=== PATIENT | male | born 1945 | race Caucasian/White ===

== ENCOUNTER 2017-03-14 13:10 | Inpatient (IN) | payer MEDICARE, BC ==
[~2017-03-14] VITALS: Ht 177.8 cm; Wt 112.5 kg
[2017-03-14 13:11] VITALS: O2SAT 96
[2017-03-14] MEDS ORDERED: ceFAZolin 2 GM PREMIX 50 ML ONE (13:13)
[2017-03-14 13:33] LABS: I-STAT POTASSIUM 3.7 MMOL/L (3.5-4.9)
--- NOTE | 2017-03-14 13:34 | RADRPT ---
EXAM DATE/TIME: 03/14/2017 13:23 [facility] COMPARISON: No previous studies available for comparison. INDICATIONS : Fall from ladder, trauma. RADIATION DOSE: 61.14 CTDIvol (mGy) MEDICAL HISTORY : None SURGICAL HISTORY : None. ENCOUNTER: Initial ACUITY: 1 day PAIN SCALE: 5/10 LOCATION: cranial TECHNIQUE: Multiple contiguous axial images were obtained of the head. Using automated exposure control and adj ustment of the mA and/or kV according to patient size, radiation dose was kept as low as reasonably a chievable to obtain optimal diagnostic quality images. DICOM format image data is available electro nically for review and comparison. FINDINGS: CEREBRUM: Questionable minimal hemorrhage in the frontal extra-axial space. The ventricles are normal for age. No evidence of midline shift, mass lesion, hemorrhage or acute infarction. No extra-axial fluid col lections are seen. POSTERIOR FOSSA: The cerebellum and brainstem are intact. The 4th ventricle is midline. The cerebellopontine angle i s unremarkable. EXTRACRANIAL: The visualized portion of the orbits is intact. Soft tissue laceration/contusion along the forehead g reater the left SKULL: The calvaria is intact. No evidence of skull fracture. CONCLUSION: 1. Questionable minimal hemorrhage in the frontal extra-axial space bilaterally. 2. No midline shift or mass effect. 3. Frontal soft tissue laceration/contusion greater the left. Orlando Kemp MD on March 14, 2017 at 13:30 Board Certified Radiologist. This report was verified electronically.
[2017-03-14 13:36] LABS: AUTOMATED NEUTROPHIL # 12.4 TH/MM3 (1.8-7.7); BASOPHIL % 0.3 % (0.0-2.0); EOSINOPHIL # 0.1 TH/MM3 (0-0.4); EOSINOPHIL % 0.7 % (0.0-4.0); HEMATOCRIT 42.3 % (39.0-51.0); HEMO FLAGS DIFF FINAL; LYMPH % 17.5 % (9.0-44.0); LYMPHOCYTE # 2.9 TH/MM3 (1.0-4.8); MEAN CELL VOLUME 85.7 FL (80.0-100.0); MEAN CORPUSCULAR HEMOGLOBIN 27.4 PG (27.0-34.0); MONO % 6.2 % (0.0-8.0); NEUT % 75.3 % (16.0-70.0); PLATELET COUNT 207 TH/MM3 (150-450); RED BLOOD COUNT 4.93 MIL/MM3 (4.50-5.90); RED CELL DISTRIBUTION WIDTH 15.3 % (11.6-17.2); WHITE BLOOD COUNT 16.4 TH/MM3 (4.0-11.0)
[2017-03-14] MEDS ORDERED: IOHEXOL 350 MG/ML 10 ML VIAL (for RAD DIAG) IVCONTRAST ONE (13:36)
[2017-03-14 13:45] LABS: APTT (PATIENT) 21.2 SEC (24.3-30.1)
[2017-03-14] MEDS ORDERED: MIDAZOLAM HCL 5 MG/ML VIAL (1 ML) ONE (13:48)
--- NOTE | 2017-03-14 13:56 | RADRPT ---
EXAM DATE/TIME: 03/14/2017 13:23 [facility] COMPARISON: No previous studies available for comparison. INDICATIONS : Fall from ladder, trauma. RADIATION DOSE: 25.06 CTDIvol (mGy) MEDICAL HISTORY : None SURGICAL HISTORY : None. ENCOUNTER: Initial ACUITY: 1 day PAIN SCALE: 5/10 LOCATION: neck TECHNIQUE: Volumetric scanning of the cervical spine was performed. Multiplanar reconstructions in the sagittal, coronal and oblique axial planes were performed. Using automated exposure control and adjustment o f the mA and/or kV according to patient size, radiation dose was kept as low as reasonably achievable to obtain optimal diagnostic quality images. DICOM format image data is available electronically f or review and comparison. FINDINGS: Vertebral body heights are maintained. Osseous structures are intact without evidence for acute bony fracture. Dens is intact. Sagittal alignment is maintained. There is a normal C1-2 relationship. Face ts are normally aligned. Multilevel degenerative spondylosis of the lower cervical spine with promine nt multilevel facet arthropathy. There is no significant prevertebral soft tissue hematoma. No signif icant cervical adenopathy or gross mass. The thyroid appears unremarkable. Visualized lung apices dem onstrate a right apical pneumothorax. CONCLUSION: 1. Partially imaged right apical pneumothorax. 2. No acute cervical fracture or subluxation. 3. Multilevel degenerative spondylosis of the lower cervical spine with prominent multilevel facet ar thropathy. Bj Briscoe MD on March 14, 2017 at 13:51 Board Certified Radiologist. This report was verified electronically.
--- NOTE | 2017-03-14 14:01 | RADRPT ---
EXAM DATE/TIME: 03/14/2017 13:23 [facility] COMPARISON: No previous studies available for comparison. INDICATIONS : Fall from ladder, trauma. RADIATION DOSE: 64.34 CTDIvol (mGy) MEDICAL HISTORY : None SURGICAL HISTORY : None. ENCOUNTER: Initial ACUITY: 1 day PAIN SCORE: 5/10 LOCATION: facial TECHNIQUE: Volumetric scanning of the facial bones was performed. Using automated exposure control and adjustme nt of the mA and/or kV according to patient size, radiation dose was kept as low as reasonably achiev able to obtain optimal diagnostic quality images. DICOM format image data is available electronicall y for review and comparison. FINDINGS: ORBITS: There is a small linear calcified density projecting along the lateral superior orbital rim whic h may reflect a small fracture fragment. The orbital and infraorbital osseous structures are oth erwise intact. The retroconal structures have a normal configuration. No radiopaque foreign roscoe dies are seen. NASAL BONE: The nasal bone and maxillary spine are intact ZYGOMATIC ARCHES: Symmetric without evidence of fracture. SINUSES: Mild mucoperiosteal thickening of the maxillary sinuses and anterior ethmoid air cells. Sphenoid sinus and frontal sinus are clear. Visualized mastoid air cells are clear. NASAL CAVITY: The nasal septum is intact and midline. The lacrimal ducts are intact. SOFT TISSUES: No radiopaque foreign bodies seen. Moderate left frontal periorbital soft tissue hematoma. INTRACRANIAL: No intracranial air seen. CRIBIFORM PLATE: Grossly intact. CONCLUSION: 1. Moderate sized left frontal periorbital scalp hematoma with small linear calcified density project ing along the lateral superior orbital rim which may reflect a small fracture fragment or possibly a small foreign body. 2. Otherwise, no evidence for facial bone fractures. 3. Mild mucosal disease involving the ethmoid and maxillary sinuses. Bj Briscoe MD on March 14, 2017 at 13:54 Board Certified Radiologist. This report was verified electronically.
[2017-03-14] MEDS ORDERED: LIDOCAINE HCL 1% PF 30 ML VIAL ONE (14:07)
--- NOTE | 2017-03-14 14:10 | RADRPT ---
EXAM DATE/TIME: 03/14/2017 13:30 [place] Corrected on: March 14, 2017; [facility] COMPARISON: No previous studies available for comparison. INDICATIONS : Fall from ladder, trauma. IV CONTRAST: 100 cc Omnipaque 350 (iohexol) IV ; Cumulative dose for multiple exams. RADIATION DOSE: 20.43 CTDIvol (mGy) ; Combined studies - Thorax/Abdomen/Pelvis MEDICAL HISTORY : None SURGICAL HISTORY : None. ENCOUNTER: Initial ACUITY: 1 day PAIN SCALE: 5/10 LOCATION: chest TECHNIQUE: Volumetric scanning of the chest was performed. Using automated exposure control and adjustment of t he mA and/or kV according to patient size, radiation dose was kept as low as reasonably achievable to obtain optimal diagnostic quality images. DICOM format image data is available electronically for review and comparison. Follow-up recommendations for detected pulmonary nodules are based at a minimum on nodule size and pa tient risk factors according to Fleischner Society Guidelines. FINDINGS: LUNGS: There is right anterior pneumothorax. Minimal right basilar consolidation likely atelectasis. There a re some patchy densities in the right lung. Left lung is clear PLEURA: Tiny right hemothorax. There is no pleural thickening or pleural effusion on the left. MEDIASTINUM: The heart and great vessels demonstrate no acute abnormality. There is no mediastinal or hilar lymph adenopathy. AXILLAE: Within normal limits. No lymphadenopathy. SKELETAL: Multiple right-sided rib fractures. MISCELLANEOUS: The visualized upper abdominal organs demonstrate right adrenal hemorrhage. CONCLUSION: 1. Large right-sided pneumothorax. 2. Consolidated changes throughout the right lung likely combination of contusion and atelectasis. 3. Multiple right-sided rib fractures. 4. Right adrenal hemorrhage. 5. Tiny right hemothorax. Orlando Kemp MD on March 14, 2017 at 13:57 Board Certified Radiologist. This report was verified electronically. Orlando Kemp MD on March 14, 2017 at 14:12 Board Certified Radiologist. This report was verified electronically.
--- NOTE | 2017-03-14 14:15 | RADRPT ---
EXAM DATE/TIME: 03/14/2017 13:30 [facility] COMPARISON: No previous studies available for comparison. INDICATIONS : Fall from ladder, trauma. IV CONTRAST: 100 cc Omnipaque 350 (iohexol) IV ; Cumulative dose for multiple exams. ORAL CONTRAST: No oral contrast ingested. RADIATION DOSE: 20.43 CTDIvol (mGy) ; Combined studies - Thorax/Abdomen/Pelvis MEDICAL HISTORY : None SURGICAL HISTORY : None. ENCOUNTER: Initial ACUITY: 1 day PAIN SCALE: 5/10 LOCATION: Abdomen TECHNIQUE: Volumetric scanning of the abdomen and pelvis was performed. Using automated exposure control and ad justment of the mA and/or kV according to patient size, radiation dose was kept as low as reasonably achievable to obtain optimal diagnostic quality images. DICOM format image data is available electro nically for review and comparison. FINDINGS: LOWER LUNGS: Right basilar pneumothorax and right small hemothorax. LIVER: Homogeneous density without lesion. There is no dilation of the biliary tree. No calcified gallston es. Minimal low attenuation along the liver adjacent to the insertion of the IVC. There is adjacent a drenal hemorrhage SPLEEN: Normal size without lesion. PANCREAS: Within normal limits. KIDNEYS: Normal in size and shape. There is no mass, stone or hydronephrosis. ADRENAL GLANDS: Right adrenal hemorrhage. Lacune or normal.. VASCULAR: There is no aortic aneurysm. BOWEL/MESENTERY: The stomach, small bowel, and colon demonstrate no acute abnormality. There is no free intraperitone al air or fluid. Diverticulosis of the colon. ABDOMINAL WALL: Within normal limits. RETROPERITONEUM: There is no lymphadenopathy. BLADDER: No wall thickening or mass. REPRODUCTIVE: Within normal limits. INGUINAL: There is no lymphadenopathy or hernia. MUSCULOSKELETAL: Multiple right-sided rib fractures. There is fracture of the right L4 transverse process and left L2 and L3 transverse processes. Left 12th rib fracture. Sclerotic focus right iliac bone CONCLUSION: 1. Right adrenal hemorrhage and some minimal adjacent hemorrhage along the undersurface of the liver. No extravasation. 2. Multiple right-sided rib fractures and pneumothorax. 3. Fractures of multiple right-sided ribs and left 12th rib. 4. Fractures of the left L2 and L3 transverse processes and L4 transverse process on the right. Orlando Kemp MD on March 14, 2017 at 14:09 Board Certified Radiologist. This report was verified electronically.
--- NOTE | 2017-03-14 14:20 | RADRPT ---
EXAM DATE/TIME: 03/14/2017 13:05 [facility] COMPARISON: CT ABDOMEN & PELVIS W CONTRAST, March 14, 2017, 13:30. INDICATIONS : Trauma alert. MEDICAL HISTORY : Unobtainble. SURGICAL HISTORY : Unobtainable. ENCOUNTER: Initial ACUITY: 1 day PAIN SCORE: Non-responsive. LOCATION: pelvis FINDINGS: Frontal pelvis is performed with patient on a backboard. The right iliac crest is excluded. The hips are grossly symmetric without definite fracture or dislocation. I see no definite displaced pelvic fr acture. CONCLUSION: No acute bony injury Eugenio Gaines MD on March 14, 2017 at 14:17 Board Certified Radiologist. This report was verified electronically.
--- NOTE | 2017-03-14 14:21 | RADRPT ---
EXAM DATE/TIME: 03/14/2017 13:05 [facility] COMPARISON: CT THORAX W CONTRAST, March 14, 2017, 13:30. CT THORACIC SPINE W/O CONTRAST, March 14, 2017, 13: 30. INDICATIONS : Trauma alert. MEDICAL HISTORY : Unobtainable. SURGICAL HISTORY : Unobtainable. ENCOUNTER: Initial ACUITY: 1 day PAIN SCORE: Non-responsive. LOCATION: Bilateral chest FINDINGS: There multiple mildly to moderately displaced right sided rib fractures. There is a right pneumothora x. Mild right lung contusion or atelectasis. Cardiomediastinal contours are satisfactory. CONCLUSION: Right rib fractures and right pneumothorax. Mild right lung contusion or atelectasis. Eugenio Gaines MD on March 14, 2017 at 14:19 Board Certified Radiologist. This report was verified electronically.
--- NOTE | 2017-03-14 14:27 | RADRPT ---
EXAM DATE/TIME: 03/14/2017 13:30 [facility] COMPARISON: No previous studies available for comparison. INDICATIONS : Fall from ladder, trauma. RADIATION DOSE: CTDIvol (mGy) ; Reconstructed from previous dataset, no dose MEDICAL HISTORY : None SURGICAL HISTORY : None. ENCOUNTER: Initial ACUITY: 1 day PAIN SCALE: 5/10 LOCATION: chest TECHNIQUE: Volumetric scanning of the thoracic spine was performed. Multiplanar reconstructions in the sagittal , coronal and oblique axial planes were performed. Using automated exposure control and adjustment o f the mA and/or kV according to patient size, radiation dose was kept as low as reasonably achievable to obtain optimal diagnostic quality images. DICOM format image data is available electronically f or review and comparison. FINDINGS: Redemonstration of multiple right sided rib fractures and posterior left 11th rib fracture. Thoracic vertebral body heights are intact without evidence for acute bony fracture or focal bony destruction. There are left sided L2 and L3 transverse process fractures. Bony central canal is patent. Facets ar e normally aligned. Sagittal alignment is maintained. Degenerative spondylosis of the lower thoracic spine with disc space narrowing and primarily osteophyte formation. Small right hemothorax and bilate ral, right greater than left ovary contusions with large right pneumothorax. CONCLUSION: 1. No evidence for thoracic spine fracture or subluxation. 2. Redemonstration of multiple right sided and left 11th posterior rib fractures. 3. Left-sided L2 and L3 transverse process fractures. 4. Small right hemothorax, large pneumothorax, and bilateral posterior pulmonary contusions. Bj Briscoe MD on March 14, 2017 at 14:19 Board Certified Radiologist. This report was verified electronically.
[2017-03-14] MEDS ORDERED: ONDANSETRON HCL 4 MG/2 ML VIAL IV PUSH PRN (14:30)
[2017-03-14] MEDS ORDERED: MISCELLANEOUS NURSING INFORMATION XX SCH (14:30)
[2017-03-14] MEDS ORDERED: CHLORHEXIDINE GLUCONATE 2 % 1 PACK (2 CLOTHS) TOP PRN (14:30)
--- NOTE | 2017-03-14 14:31 | RADRPT ---
EXAM DATE/TIME: 03/14/2017 13:30 [facility] COMPARISON: No previous studies available for comparison. INDICATIONS : Fall from ladder, trauma. RADIATION DOSE: ; Reconstructed from previous dataset, no dose MEDICAL HISTORY : None SURGICAL HISTORY : None. ENCOUNTER: Initial ACUITY: 1 day PAIN SCALE: 5/10 LOCATION: back TECHNIQUE: Volumetric scanning of the lumbar spine was performed. Multiplanar reconstructions in the sagittal, coronal and oblique axial planes were performed. Using automated exposure control and adjustment of the mA and/or kV according to patient size, radiation dose was kept as low as reasonably achievable t o obtain optimal diagnostic quality images. DICOM format image data is available electronically for review and comparison. FINDINGS: Left L2 and L3 transverse process fractures. Right L4 transverse process fracture. Vertebral body hei ghts are intact. Sagittal alignment is maintained. Facets are normally aligned. Degenerative spondylo sis of the lower lumbar spine most prominently at L4-5 with disc space narrowing, vacuum disc phenome non and posterior disc osteophytes. Bony central canal is patent. SI joints are maintained. Visualize d sacrum appears intact. Probable small bone island in the right iliac bone. Visualized paraspinal so ft tissues are grossly unremarkable. CONCLUSION: 1. Left L2 and L3 and right L4 transverse process fractures. 2. Otherwise, no significant lumbar vertebral fracture or subluxation. 3. Degenerative spondylosis of the lower lumbar spine. Bj Briscoe MD on March 14, 2017 at 14:26 Board Certified Radiologist. This report was verified electronically.
--- NOTE | 2017-03-14 14:41 | RADRPT ---
EXAM DATE/TIME: 03/14/2017 13:05 [facility] COMPARISON: CHEST SINGLE AP, March 14, 2017, 13:05. INDICATIONS : Post right side chest tube placement. MEDICAL HISTORY : None. SURGICAL HISTORY : None. ENCOUNTER: Initial ACUITY: 1 day PAIN SCORE: Non-responsive. LOCATION: Bilateral chest FINDINGS: Thoracostomy tube is present at the right lung base. There has been resolution of pneumothorax. Mild basilar lung contusions are present. Cardiac contours are stable and satisfactory. CONCLUSION: Thoracostomy tube in place with resolution of pneumothorax Eugenio Gaines MD on March 14, 2017 at 14:28 Board Certified Radiologist. This report was verified electronically.
--- NOTE | 2017-03-14 14:45 | PD ---
HPI Chief Complaint: Trauma (Alert) Time Seen by Provider: 14:24 Travel History International Travel<30 days: No Contact w/Intl Traveler<30days: No Traveled to known affect area: No History of Present Illness HPI This is a 71-year-old male who is brought in from [facility] as a trauma alert. The patient was climbing on a ladder and fell 8 feet to the ground. The patient states he was cutting a tree in the branch broke and fell and knocked his ladder down. The patient reports pain in his left upper face. Patient also reports pain in his right sided ribs. There is also pain in his lower middle back. There is no reported loss of consciousness. The patient takes no blood thinners. There is no abdominal pain. Allergies-Medications (Allergen,Severity, Reaction): Coded Allergies: No Known Allergies (Unverified , 03/14/17) Review of Systems Except as stated in HPI: all other systems reviewed are Neg Eyes: Positive: Other (laceration below the left eyebrow.), No: Blurred Vision HENT: Positive: Headaches (left sided), No: Neck Stiffness, Neck Pain ( upper forehead.) Cardiovascular: Positive: Chest Pain or Discomfort, No: Palpitations Respiratory: Positive: Shortness of Breath, No: Cough Gastrointestinal: No: Nausea, Vomiting, Abdominal Pain Genitourinary: No: Incontinence Musculoskeletal: Positive: Pain (mid thoracic back), No: Weakness ( right sided ribs), Edema Skin: Positive Other (abrasion to the right shoulder), No Rash Neurologic: No: Weakness, Headache, Incontinence, Sensory Disturbance Physical Exam Narrative GENERAL: Well-developed well-nourished male in C-spine backboard immobilization. SKIN: Focused skin assessment warm/dry. HEAD: 3 cm laceration to the left infra-eyebrow area. Normocephalic. EYES: Pupils equal and round. No scleral icterus. No injection or drainage. ENT: No nasal bleeding or discharge. Mucous membranes pink and moist. NECK: Trachea midline. In c-collar immobilization. CARDIOVASCULAR: Regular rate and rhythm. No murmur appreciated. RESPIRATORY: Decreased breath sounds on the right. There is a needle thoracostomy kit in his right upper chest. GASTROINTESTINAL: Abdomen soft, obese, non-tender, nondistended. Hepatic and splenic margins not palpable. Patient has pain in his right chest when you palpate his abdomen however no true abdominal pain. MUSCULOSKELETAL: No obvious deformities. No clubbing. No cyanosis. No edema. NEUROLOGICAL: Awake and alert. No obvious cranial nerve deficits. Motor grossly within normal limits. Normal speech. PSYCHIATRIC: Appropriate mood and affect; insight and judgment normal. Data Data Last Documented VS Vital Signs Date Time Temp Pulse Resp B/P (MAP) Pulse Ox O2 Delivery O2 Flow Rate FiO2 03/14/17 13:11 96 15.00 Orders Orders Cefazolin 2 Gm Premix (Ancef 2 Gm Premix (03/14/17 13:13) I-Stat Creatinine (03/14/17 13:13) Complete Blood Count With Diff (03/14/17 13:13) Type And Screen (03/14/17 13:13) Chest, Single Ap (03/14/17 ) I-Stat Profile (03/14/17 13:13) Prothrombin Time / Inr (Pt) (03/14/17 13:13) Act Partial Throm Time (Ptt) (03/14/17 13:13) Red Blood Cells (Rbc) (03/14/17 13:13) Pelvis, Ap Only (Routine) (03/14/17 13:13) Ct Brain W/O Iv Contrast(Rout) (03/14/17 13:13) Ct Cerv Spine W/O Contrast (03/14/17 13:13) Ct Abd/Pel W Iv Contrast(Rout) (03/14/17 13:13) Ct Thorax/ Chest W Iv Contrast (03/14/17 13:13) Ct Thor Spine W/O Contrast (03/14/17 13:13) Ct Lumb Spine W/O Contrast (03/14/17 13:13) Ct Facial Bones W/O Iv Cont (03/14/17 13:13) Iv Access Insert/Monitor (03/14/17 13:13) Ecg Monitoring (03/14/17 13:13) Oximetry (03/14/17 13:13) Oxygen Administration (03/14/17 13:13) Trauma Office Use Only (03/14/17 13:24) Iohexol 350 Inj (Omnipaque 350 Inj) (03/14/17 13:36) Midazolam Inj (Versed Inj) (03/14/17 13:48) Fentanyl Inj (Fentanyl Inj) (03/14/17 13:49) Fentanyl Inj (Fentanyl Inj) (03/14/17 13:55) Chest, Single Ap (03/14/17 ) Lidocaine Pf 1% Inj (Xylocaine-Mpf 1% In (03/14/17 14:07) Labs Laboratory Tests Test 03/14/17 13:15 White Blood Count 16.4 TH/MM3 Red Blood Count 4.93 MIL/MM3 Hemoglobin 13.5 GM/DL Bedside Hemoglobin 14.3 G/DL Hematocrit 42.3 % Bedside Hematocrit 42.0 % Mean Corpuscular Volume 85.7 FL Mean Corpuscular Hemoglobin 27.4 PG Mean Corpuscular Hemoglobin Concent 32.0 % Red Cell Distribution Width 15.3 % Platelet Count 207 TH/MM3 Mean Platelet Volume 8.3 FL Neutrophils (%) (Auto) 75.3 % Lymphocytes (%) (Auto) 17.5 % Monocytes (%) (Auto) 6.2 % Eosinophils (%) (Auto) 0.7 % Basophils (%) (Auto) 0.3 % Neutrophils # (Auto) 12.4 TH/MM3 Lymphocytes # (Auto) 2.9 TH/MM3 Monocytes # (Auto) 1.0 TH/MM3 Eosinophils # (Auto) 0.1 TH/MM3 Basophils # (Auto) 0.0 TH/MM3 CBC Comment DIFF FINAL Differential Comment Prothrombin Time 11.0 SEC Prothromb Time International Ratio 1.0 RATIO Activated Partial Thromboplast Time 21.2 SEC Bedside Sodium 142 MMOL/L Bedside Potassium 3.7 MMOL/L Bedside Chloride 106 MMOL/L Bedside Blood Urea Nitrogen 14 MG/DL Bedside Creatinine 1.3 MG/DL Bedside Glucose 133 MG/DL [facility] Medical Screen Exam Complete: Yes Emergency Medical Condition: Yes Interpretation(s) Last 24 hours Impressions Pelvis X-Ray 03/14/171312 Signed Impressions: Service Date/Time: Tuesday, March 14, 2017 13:05 - CONCLUSION: No acute bony injury Eugenio Gaines MD Maxillofacial CT 03/14/171312 Signed Impressions: Service Date/Time: Tuesday, March 14, 2017 13:23 - CONCLUSION: 1. Moderate sized left frontal periorbital scalp hematoma with small linear calcified density projecting along the lateral superior orbital rim which may reflect a small fracture fragment or possibly a small foreign body. 2. Otherwise, no evidence for facial bone fractures. 3. Mild mucosal disease involving the ethmoid and maxillary sinuses. Bj Briscoe MD Head CT 03/14/171312 Signed Impressions: Service Date/Time: Tuesday, March 14, 2017 13:23 - CONCLUSION: 1. Questionable minimal hemorrhage in the frontal extra-axial space bilaterally. 2. No midline shift or mass effect. 3. Frontal soft tissue laceration/contusion greater the left. Orlando Kemp MD Chest CT 03/14/171312 Signed Impressions: Service Date/Time: Tuesday, March 14, 2017 13:30 - CONCLUSION: 1. Large right-sided pneumothorax. 2. Consolidated changes throughout the right lung likely combination of contusion and atelectasis. 3. Multiple right-sided rib fractures. 4. Right adrenal hemorrhage. 5. Tiny right hemothorax. Orlando Kemp MD Cervical Spine CT 03/14/171312 Signed Impressions: Service Date/Time: Tuesday, March 14, 2017 13:23 - CONCLUSION: 1. Partially imaged right apical pneumothorax. 2. No acute cervical fracture or subluxation. 3. Multilevel degenerative spondylosis of the lower cervical spine with prominent multilevel facet arthropathy. Bj Briscoe MD Abdomen/Pelvis CT 03/14/171312 Signed Impressions: Service Date/Time: Tuesday, March 14, 2017 13:30 - CONCLUSION: 1. Right adrenal hemorrhage and some minimal adjacent hemorrhage along the undersurface of the liver. No extravasation. 2. Multiple right-sided rib fractures and pneumothorax. 3. Fractures of multiple right-sided ribs and left 12th rib. 4. Fractures of the left L2 and L3 transverse processes and L4 transverse process on the right. Orlando Kemp MD Chest X-Ray 03/14/17 0000 Signed Impressions: Service Date/Time: Tuesday, March 14, 2017 13:05 - CONCLUSION: Right rib fractures and right pneumothorax. Mild right lung contusion or atelectasis. Eugenio Gaines MD Differential Diagnosis Intracranial hemorrhage versus right sided pneumothorax versus right sided rib fractures versus spine fractures. Narrative Course 71-year-old male brought in as a trauma alert from [facility]. The patient was a level II trauma. Patient was worked up and found to have a large right sided pneumothorax with right sided rib fractures. Patient also has a questionable small intracranial hemorrhage. There is also some spinous process fractures noted as well. The patient will be admitted to the trauma service. Please note Dr. Etienne's, on-call trauma surgeon presented just prior to the placement of the chest tube. Dr. Etienne's assumed care of the patient and placed the chest tube. He will provide further care with the trauma service. Critical Care Narrative Aggregate critical care time was 60 minutes. Time to perform other separately billable procedures was not included in the critical care time. My time did not include minutes spent treating any other patients simultaneously or on activities that did not directly contribute to the patient's treatment. The services I provided to this patient were to treat and/or prevent clinically significant deterioration that could result in: I provided critical care services requiring my management, as noted below: Chart data review, documentation time, medication orders and management, vital sign assessments/reviewing monitor data, ordering and reviewing lab tests, ordering and interpreting/reviewing x-rays and diagnostic studies, care of the patient and discussion of the patient with the admitting physicians. Diagnosis Diagnosis: Primary Impression: large right pneumothorax. Additional Impressions: questionable intracranial hemorrhage left wall rib fracture right L4 transverse process process fracture Left L2, L3 transverse process fractures left inferior eyebrow laceration Adam Schroeder MD Mar 14, 2017 14:44
[2017-03-14] MEDS: SODIUM CHLOR 0.9% 1000 ML INJ 1,000 ML IV SCH (15:00)
[2017-03-14] MEDS: HYDROmorphone HCL PF 1 MG/ML VIAL IV PUSH PRN ×2 (15:47→23:44)
[2017-03-14 16:00] VITALS: BP 138/74; PULSE 97; RESP 16; TEMP 99; O2SAT 91; O2SAT 94
--- NOTE | 2017-03-14 16:00 | HHI.HP ---
History of Present Illness Primary Care Physician Admission Diagnosis right pneumothorax, L2,3,4 transverse process fractures, small ich Diagnoses: History of Present Illness 71 y.o male fell from a ladder as he was cutting trees-level 2 trauma ,CT scans ordered by the ER.Called by the ER for right ptx-at time of my exam,GCS 15- neuro intact,moving all 4 extremities,left forehead wound with active bleeding, HD normal-no blood thinners-c/o right thoracic pain. Review of Systems Constitutional: DENIES: Diaphoretic episodes, Fatigue, Fever, Weight gain, Weight loss, Chills, Dizziness, Change in appetite, Night Sweats Endocrine: DENIES: Heat/cold intolerance, Polydipsia, Polyuria, Polyphagia Eyes: DENIES: Blurred vision, Diplopia, Eye inflammation, Eye pain, Vision loss , Photosensitivity, Double Vision Ears, nose, mouth, throat: DENIES: Tinnitus, Hearing loss, Vertigo, Nasal discharge, Oral lesions, Throat pain, Hoarseness, Ear Pain, Running Nose, Epistaxis, Sinus Pain, Toothache, Odynophagia Respiratory: DENIES: Apneas, Cough, Snoring, Wheezing, Hemoptysis, Sputum production, Shortness of breath Cardiovascular: DENIES: Chest pain, Palpitations, Syncope, Dyspnea on Exertion , PND, Lower Extremity Edema, Orthopnea, Claudication Gastrointestinal: DENIES: Abdominal pain, Black stools, Bloody stools, Constipation, Diarrhea, Nausea, Vomiting, Difficulty Swallowing, Anorexia Genitourinary: DENIES: Sexual dysfunction, Urinary frequency, Urinary incontinence, Urgency, Hematuria, Dysuria, Nocturia, Penile Discharge, Testicular Pain, Testicular Swelling Musculoskeletal: DENIES: Joint pain, Muscle aches, Stiffness, Joint Swelling, Back pain, Neck pain Integumentary: DENIES: Abnormal pigmentation, Nail changes, Pruritus, Rash Hematologic/lymphatic: DENIES: Bruising, Lymphadenopathy Neurologic: DENIES: Abnormal gait, Headache, Localized weakness, Paresthesias, Seizures, Speech Problems, Tremor, Poor Balance Psychiatric: DENIES: Anxiety, Confusion, Mood changes, Depression, Hallucinations, Agitation, Suicidal Ideation, Homicidal Ideation, Delusions Past Family Social History Allergies: Coded Allergies: No Known Allergies (Unverified , 03/14/17) Past Medical History htn Past Surgical History none Reported Medications norvasc,losartan Family History none Social History no drugs Physical Exam Vital Signs Vital Signs Date Time Temp Pulse Resp B/P (MAP) Pulse Ox O2 Delivery O2 Flow Rate FiO2 03/14/17 13:11 96 15.00 Physical Exam GENERAL: This is a well-nourished, well-developed patient, in mild apparent distress. SKIN: No rashes, ecchymoses or lesions. Cool and dry. HEAD:Normocephalic.4cm open wound left supraorbital EYES: Pupils equal round and reactive. Extraocular motions intact. No scleral icterus. No injection or drainage. ENT: Nose without bleeding Airway patent. NECK: Trachea midline. No JVD or lymphadenopathy. Supple, nontender, CARDIOVASCULAR: Regular rate and rhythm without murmurs, gallops, or rubs. RESPIRATORY: Clear to auscultation.reduced BS right. No wheezes, rales, or rhonchi. GASTROINTESTINAL: Abdomen soft, non-tender, nondistended.. No guarding. MUSCULOSKELETAL: Extremities without clubbing, cyanosis, or edema. No joint tenderness, effusion, or edema noted. NEUROLOGICAL: Awake and alert. Cranial nerves II through XII intact. Motor and sensory grossly within normal limits. Five out of 5 muscle strength in all muscle groups. Normal speech. Laboratory Laboratory Tests Test 03/14/17 13:15 White Blood Count 16.4 Red Blood Count 4.93 Hemoglobin 13.5 Bedside Hemoglobin 14.3 Hematocrit 42.3 Bedside Hematocrit 42.0 Mean Corpuscular Volume 85.7 Mean Corpuscular Hemoglobin 27.4 Mean Corpuscular Hemoglobin Concent 32.0 Red Cell Distribution Width 15.3 Platelet Count 207 Mean Platelet Volume 8.3 Neutrophils (%) (Auto) 75.3 Lymphocytes (%) (Auto) 17.5 Monocytes (%) (Auto) 6.2 Eosinophils (%) (Auto) 0.7 Basophils (%) (Auto) 0.3 Neutrophils # (Auto) 12.4 Lymphocytes # (Auto) 2.9 Monocytes # (Auto) 1.0 Eosinophils # (Auto) 0.1 Basophils # (Auto) 0.0 CBC Comment DIFF FINAL Differential Comment Prothrombin Time 11.0 Prothromb Time International Ratio 1.0 Activated Partial Thromboplast Time 21.2 Bedside Sodium 142 Bedside Potassium 3.7 Bedside Chloride 106 Bedside Blood Urea Nitrogen 14 Bedside Creatinine 1.3 Bedside Glucose 133 Result Diagram: 10/6/17 1315 Imaging Last 48 hours Impressions Thoracic Spine CT 03/14/171312 Signed Impressions: Service Date/Time: Tuesday, March 14, 2017 13:30 - CONCLUSION: 1. No evidence for thoracic spine fracture or subluxation. 2. Redemonstration of multiple right sided and left 11th posterior rib fractures. 3. Left-sided L2 and L3 transverse process fractures. 4. Small right hemothorax, large pneumothorax, and bilateral posterior pulmonary contusions. Bj Briscoe MD Pelvis X-Ray 03/14/171312 Signed Impressions: Service Date/Time: Tuesday, March 14, 2017 13:05 - CONCLUSION: No acute bony injury Eugenio Gaines MD Maxillofacial CT 03/14/171312 Signed Impressions: Service Date/Time: Tuesday, March 14, 2017 13:23 - CONCLUSION: 1. Moderate sized left frontal periorbital scalp hematoma with small linear calcified density projecting along the lateral superior orbital rim which may reflect a small fracture fragment or possibly a small foreign body. 2. Otherwise, no evidence for facial bone fractures. 3. Mild mucosal disease involving the ethmoid and maxillary sinuses. Bj Briscoe MD Lumbar Spine CT 03/14/171312 Signed Impressions: Service Date/Time: Tuesday, March 14, 2017 13:30 - CONCLUSION: 1. Left L2 and L3 and right L4 transverse process fractures. 2. Otherwise, no significant lumbar vertebral fracture or subluxation. 3. Degenerative spondylosis of the lower lumbar spine. Bj Briscoe MD Head CT 03/14/171312 Signed Impressions: Service Date/Time: Tuesday, March 14, 2017 13:23 - CONCLUSION: 1. Questionable minimal hemorrhage in the frontal extra-axial space bilaterally. 2. No midline shift or mass effect. 3. Frontal soft tissue laceration/contusion greater the left. Orlando Kemp MD Chest CT 03/14/171312 Signed Impressions: Service Date/Time: Tuesday, March 14, 2017 13:30 - CONCLUSION: 1. Large right-sided pneumothorax. 2. Consolidated changes throughout the right lung likely combination of contusion and atelectasis. 3. Multiple right-sided rib fractures. 4. Right adrenal hemorrhage. 5. Tiny right hemothorax. Orlando Kemp MD Cervical Spine CT 03/14/17 1313 Signed Impressions: Service Date/Time: Tuesday, March 14, 2017 13:23 - CONCLUSION: 1. Partially imaged right apical pneumothorax. 2. No acute cervical fracture or subluxation. 3. Multilevel degenerative spondylosis of the lower cervical spine with prominent multilevel facet arthropathy. Bj Briscoe MD Abdomen/Pelvis CT 03/14/17 1313 Signed Impressions: Service Date/Time: Tuesday, March 14, 2017 13:30 - CONCLUSION: 1. Right adrenal hemorrhage and some minimal adjacent hemorrhage along the undersurface of the liver. No extravasation. 2. Multiple right-sided rib fractures and pneumothorax. 3. Fractures of multiple right-sided ribs and left 12th rib. 4. Fractures of the left L2 and L3 transverse processes and L4 transverse process on the right. Orlando Kemp MD Chest X-Ray 03/14/17 0000 Signed Impressions: Service Date/Time: Tuesday, March 14, 2017 13:05 - CONCLUSION: Thoracostomy tube in place with resolution of pneumothorax Eugenio Gaines MD Chest X-Ray 03/14/17 0000 Signed Impressions: Service Date/Time: Tuesday, March 14, 2017 13:05 - CONCLUSION: Right rib fractures and right pneumothorax. Mild right lung contusion or atelectasis. MD Clark Ibrahimi VTE Risk Assessment Caprini VTE Risk Assessment: Mod/High Risk (score >= 2) VTE Pharm Contraindication: Hemorrhage Caprini Risk Assessment Model Point Value = 1 Point Value = 2 Point Value = 3 Point Value = 5 Age 41-60 Minor surgery BMI > 25 kg/m2 Swollen legs Varicose veins or History of unexplained or recurrent spontaneous Oral contraceptives or hormone replacement Sepsis (< 1 month) Serious lung disease, including pneumonia (< 1 month) Abnormal pulmonary function Acute myocardial infarction Congestive heart failure (< 1 month) History of inflammatory bowel disease Medical patient at bed rest Age 61-74 Arthroscopic surgery Major open surgery (> 45 min) Laparoscopic surgery (> 45 min) Malignancy Confined to bed (> 72 hours) Immobilizing plaster cast Central venous access Age >= 75 History of VTE Family history of VTE Factor V Leiden Prothrombin [id number] Lupus anticoagulant Anticardiolipin antibodies Elevated serum homocysteine Heparin-induced thrombocytopenia Other congenital or acquired thrombophilia Stroke (< 1 month) Elective arthroplasty Hip, pelvis, or leg fracture Acute spinal cord injury (< 1 month) Prophylaxis Regimen Total Risk Factor Score Risk Level Prophylaxis Regimen 0-1 Low Early ambulation 2 Moderate Order ONE of the following: *Sequential Compression Device (SCD) *Heparin 5000 units SQ BID 3-4 Higher Order ONE of the following medications: *Heparin 5000 units SQ TID *Enoxaparin/Lovenox 40 mg SQ daily (WT < 150 kg, CrCl > 30 mL/min) *Enoxaparin/Lovenox 30 mg SQ daily (WT < 150 kg, CrCl > 10-29 mL/min) *Enoxaparin/Lovenox 30 mg SQ BID (WT < 150 kg, CrCl > 30 mL/min) AND/OR *Sequential Compression Device (SCD) 5 or more Highest Order ONE of the following medications: *Heparin 5000 units SQ TID (Preferred with Epidurals) *Enoxaparin/Lovenox 40 mg SQ daily (WT < 150 kg, CrCl > 30 mL/min) *Enoxaparin/Lovenox 30 mg SQ daily (WT < 150 kg, CrCl > 10-29 mL/min) *Enoxaparin/Lovenox 30 mg SQ BID (WT < 150 kg, CrCl > 30 mL/min) AND *Sequential Compression Device (SCD) Assessment and Plan Assessment and Plan multi trauma right 5 rib fx,left 0ne rib fx right PTX adrenal gland bleeding small SDH orbital fx open wound left forehead CT inserted in the trauma bay open wound closed admit to icu pain control pulmonary toilet CT to suction fu CXR in AM requires about 50 FIO2 to maintain spo2 in the 90 ies monitor respiratory status closely family updated NS consult Jennifer Cheney MD Mar 14, 2017 16:00
--- NOTE | 2017-03-14 16:19 | PD.CONS ---
HPI Service Critical Care Medicine Consult Requested By Trauma Service. Reason for Consult Blunt Chest Trauma, respiratory distress. Primary Care Physician History of Present Illness 71 y/o man fell about 10 feet to ground sustaining blunt trauma to head, face, and right torso. Arrived with SOB and required insertion right chest tube for pneumothorax. Multiple right rib fractures. No LOC. Review of Systems Constitutional: COMPLAINS OF: Dizziness Endocrine: DENIES: Heat/cold intolerance, Polydipsia, Polyuria, Polyphagia Ears, nose, mouth, throat: DENIES: Tinnitus, Hearing loss, Vertigo, Nasal discharge, Oral lesions, Throat pain, Hoarseness, Ear Pain, Running Nose, Epistaxis, Sinus Pain, Toothache, Odynophagia Respiratory: COMPLAINS OF: Cough, Shortness of breath Cardiovascular: COMPLAINS OF: Chest pain Gastrointestinal: DENIES: Abdominal pain, Black stools, Bloody stools, Constipation, Diarrhea, Nausea, Vomiting, Difficulty Swallowing, Anorexia Musculoskeletal: COMPLAINS OF: Back pain Integumentary: DENIES: Abnormal pigmentation, Nail changes, Pruritus, Rash Hematologic/lymphatic: COMPLAINS OF: Bruising Past Family Social History Allergies: Coded Allergies: No Known Allergies (Unverified , 03/14/17) Past Medical History Allergies-Medications (Allergen,Severity, Reaction): Coded Allergies: No Known Allergies (Unverified , 03/14/17) Physical Exam Vital Signs Vital Signs Date Time Temp Pulse Resp B/P (MAP) Pulse Ox O2 Delivery O2 Flow Rate FiO2 03/14/17 13:11 96 15.00 Physical Exam Gen: Uncomfortable man, severe pain. Head: Abrasions right forehead and temporal region. Laceration over left eye. Neck: Supple, no step-off. Airway widely patent. Lungs: Crepitus right chest wall. No wheezes, excursions limited by pain. Heart: NL S1S2, RRR, No JVD. Abdomen: Voluntary guarding only, no peritoneal irritation. Extremities: Well perfused. No angulation. Neuro: O X 3, alert, speech clear. M/S grossly intact. Laboratory Laboratory Tests Test 03/14/17 13:15 White Blood Count 16.4 Red Blood Count 4.93 Hemoglobin 13.5 Bedside Hemoglobin 14.3 Hematocrit 42.3 Bedside Hematocrit 42.0 Mean Corpuscular Volume 85.7 Mean Corpuscular Hemoglobin 27.4 Mean Corpuscular Hemoglobin Concent 32.0 Red Cell Distribution Width 15.3 Platelet Count 207 Mean Platelet Volume 8.3 Neutrophils (%) (Auto) 75.3 Lymphocytes (%) (Auto) 17.5 Monocytes (%) (Auto) 6.2 Eosinophils (%) (Auto) 0.7 Basophils (%) (Auto) 0.3 Neutrophils # (Auto) 12.4 Lymphocytes # (Auto) 2.9 Monocytes # (Auto) 1.0 Eosinophils # (Auto) 0.1 Basophils # (Auto) 0.0 CBC Comment DIFF FINAL Differential Comment Prothrombin Time 11.0 Prothromb Time International Ratio 1.0 Activated Partial Thromboplast Time 21.2 Bedside Sodium 142 Bedside Potassium 3.7 Bedside Chloride 106 Bedside Blood Urea Nitrogen 14 Bedside Creatinine 1.3 Bedside Glucose 133 Result Diagram: 03/14/17 1315 Assessment and Plan Assessment and Plan Assessment: 1. Fall from height with: a. Frontal lobe contusion, minor. b. Multiple right rib Fxs. c. Right pneumothorax. d. Transverse process fractures lumbar bodies. e. Adrenal bleed ans minor liver lac right side. Plan: 1. Chest tube right side to suction. 2. IV analgesia. 3. Swallow evaluation. 4. Pepcid. 5. SCDs. 6. Hold chemical DVT px. 7. Serial Hgb. 8. IS. Overall impression: Respiratory compromise following fall from height and significant right chest/abdomen trauma. Adam Bryant MD Mar 14, 2017 16:19
[2017-03-14] MEDS: CYCLOBENZAPRINE HCL 10 MG TAB PO SCH ×2 (17:45→20:41)
[2017-03-14] MEDS: LIDOCAINE HCL 5% PATCH T-DERMAL SCH (17:45)
[2017-03-14 18:00] VITALS: PULSE 94
[2017-03-14 20:00] VITALS: BP 141/78; PULSE 92; RESP 19; TEMP 99; O2SAT 94
--- NOTE | 2017-03-14 20:39 | PD.OP ---
Operative Report right ptx,open wound left forehead 4 cm Postoperative Diagnosis: right ptx,open wound left forehead 4cm Procedure: Right chest tube thoracostomy,closure in layers open wound left forehead in layers Anesthesia: 1% lidocaine,50 mcg fentanyl,2 mg versed Surgeon: Jennifer Cheney Reformatory Attendant(s): none Operation and Findings: Multi trauma,multiple rib fx right with large ptx,open wound left forehead 4cm Right chest sterilely prepped and draped.5th ICR tranverse incision placed.Dissection to superior margin of rib,pleura entered,[address] inserted, secured to skin with 1-0 silk.CXR shows good position.Left forehead wound 4cm- sterilely prepped and draped.Irrigation with NS performed.Closure in layers with 3-0 Vicryl and 4-0 prolene performed.Dressing applied. Jennifer Cheney MD Mar 14, 2017 20:39
[2017-03-14] MEDS: DOCUSATE SODIUM 50 MG/SENNA 8.6 MG TAB PO SCH (20:41)
[2017-03-14] MEDS: PANTOPRAZOLE SOD 40 MG DELAYED RELEASE TAB PO SCH (21:50)
[2017-03-14 22:00] VITALS: PULSE 96; O2SAT 95
--- NOTE | 2017-03-14 22:57 | PD.CONS ---
History of Present Illness Service Neurosurgery Consult Requested By General surgery trauma service Reason for Consult Traumatic brain injury, multiple spinous process fractures. Primary Care Physician Diagnoses: History of Present Illness 71 y.o male fell from a ladder as he was cutting trees-level 2 trauma ,CT scans ordered by the ER.Called by the ER for right ptx-at time of my exam,GCS 15- neuro intact,moving all 4 extremities,left forehead wound with active bleeding, HD normal-no blood thinners-c/o right thoracic pain. Review of Systems Constitutional: DENIES: Fatigue, Fever Eyes: DENIES: Blurred vision, Diplopia Ears, nose, mouth, throat: DENIES: Hearing loss, Vertigo, Nasal discharge Cardiovascular: DENIES: Chest pain, Palpitations Gastrointestinal: DENIES: Abdominal pain, Nausea Musculoskeletal: COMPLAINS OF: Joint pain, Muscle aches, Back pain, DENIES: Neck pain Hematologic/lymphatic: COMPLAINS OF: Bruising Neurologic: DENIES: Headache, Localized weakness Psychiatric: DENIES: Confusion Past Family Social History Allergies: Coded Allergies: No Known Allergies (Unverified , 03/14/17) Past Medical History Hypertension No history of significant cardiac, pulmonary, gastrointestinal disease or diabetes Past Surgical History No major surgeries reported Reported Medications Losartan Norvasc Family History Negative cancer, diabetes Social History No significant cigarette or alcohol use Physical Exam Vital Signs Vital Signs Date Time Temp Pulse Resp B/P (MAP) Pulse Ox O2 Delivery O2 Flow Rate FiO2 03/14/17 22:00 93 Blow By 40 03/14/17 20:00 94 Blow By 40 03/14/17 18:00 94 03/14/17 18:00 Blow By 40 03/14/17 16:17 15 03/14/17 16:00 91 Venturi Mask 40 03/14/17 16:00 94 High Flow Nasal Cannula 30.00 40 03/14/17 16:00 99.0 97 16 138/74 (95) 91 03/14/17 13:11 96 15.00 Physical Exam GENERAL: This is a well-nourished, well-developed patient, no apparent distress. SKIN: Scattered abrasions, ecchymosis over the extremities HEAD: Sutured left supraorbital laceration EYES: Mild left conjunctival erythema ENT: No facial edema or ecchymosis. Mild left periorbital ecchymosis. No CSF otorrhea or rhinorrhea. No palpable facial fracture or deformity. NECK: Trachea midline. No cervical spine tenderness. CARDIOVASCULAR: Regular rate and rhythm without murmurs, gallops, or rubs. RESPIRATORY: Clear to auscultation. Breath sounds equal bilaterally. No wheezes , rales, or rhonchi. GASTROINTESTINAL: Abdomen soft, non-tender, nondistended. No hepato-splenomegaly , or palpable masses. No guarding. MUSCULOSKELETAL: Extremities without cyanosis, or edema. No joint tenderness, or edema noted. No calf tenderness. Dorsalis pedis pulses 2+ bilateral NEUROLOGICAL: Awake and alert Oriented X 3 Speech is clear Conversant and appropriate Follow simple commands well Answers questions appropriately Reasonable judgment and insight Recent and remote memory are intact No evidence of anxiety or depression Pupils are equal and reactive to accommodation. Extra-ocular movements, visual mcclendon to confrontation, facial sensorimotor, tongue, palate, sternocleidomastoid testing, hearing to finger rub testing, and bilateral shoulder shrug are all intact. Sensation is intact to light touch in all extremities Strength normal major flexion and extension groups all extremities Donnie's absent bilaterally No ankle clonus Plantar responses absent bilateral Fine motor movements intact upper extremities Laboratory Laboratory Tests Test 03/14/17 13:15 03/14/17 16:00 White Blood Count 16.4 Red Blood Count 4.93 Hemoglobin 13.5 Bedside Hemoglobin 14.3 Hematocrit 42.3 Bedside Hematocrit 42.0 Mean Corpuscular Volume 85.7 Mean Corpuscular Hemoglobin 27.4 Mean Corpuscular Hemoglobin Concent 32.0 Red Cell Distribution Width 15.3 Platelet Count 207 Mean Platelet Volume 8.3 Neutrophils (%) (Auto) 75.3 Lymphocytes (%) (Auto) 17.5 Monocytes (%) (Auto) 6.2 Eosinophils (%) (Auto) 0.7 Basophils (%) (Auto) 0.3 Neutrophils # (Auto) 12.4 Lymphocytes # (Auto) 2.9 Monocytes # (Auto) 1.0 Eosinophils # (Auto) 0.1 Basophils # (Auto) 0.0 CBC Comment DIFF FINAL Differential Comment Prothrombin Time 11.0 Prothromb Time International Ratio 1.0 Activated Partial Thromboplast Time 21.2 Bedside Sodium 142 Bedside Potassium 3.7 Bedside Chloride 106 Bedside Blood Urea Nitrogen 14 Bedside Creatinine 1.3 Bedside Glucose 133 Nasal Screen MRSA (PCR) MRSA NOT DETECTED Result Diagram: 10/6/17 1315 Imaging 10/6/17 CT scan of the head, cervical spine, thoracic spine, lumbar spine images are reviewed by the undersigned. Agree with findings as noted below: Thoracic Spine CT 03/14/171312 Signed Impressions: Service Date/Time: Tuesday, March 14, 2017 13:30 - CONCLUSION: 1. No evidence for thoracic spine fracture or subluxation. 2. Redemonstration of multiple right sided and left 11th posterior rib fractures. 3. Left-sided L2 and L3 transverse process fractures. 4. Small right hemothorax, large pneumothorax, and bilateral posterior pulmonary contusions. Bj Briscoe MD Pelvis X-Ray 03/14/171312 Signed Impressions: Service Date/Time: Tuesday, March 14, 2017 13:05 - CONCLUSION: No acute bony injury Eugenio Gaines MD Maxillofacial CT 03/14/171312 Signed Impressions: Service Date/Time: Tuesday, March 14, 2017 13:23 - CONCLUSION: 1. Moderate sized left frontal periorbital scalp hematoma with small linear calcified density projecting along the lateral superior orbital rim which may reflect a small fracture fragment or possibly a small foreign body. 2. Otherwise, no evidence for facial bone fractures. 3. Mild mucosal disease involving the ethmoid and maxillary sinuses. Bj Briscoe MD Lumbar Spine CT 03/14/171312 Signed Impressions: Service Date/Time: Tuesday, March 14, 2017 13:30 - CONCLUSION: 1. Left L2 and L3 and right L4 transverse process fractures. 2. Otherwise, no significant lumbar vertebral fracture or subluxation. 3. Degenerative spondylosis of the lower lumbar spine. Bj Briscoe MD Head CT 03/14/171312 Signed Impressions: Service Date/Time: Tuesday, March 14, 2017 13:23 - CONCLUSION: 1. Questionable minimal hemorrhage in the frontal extra-axial space bilaterally. 2. No midline shift or mass effect. 3. Frontal soft tissue laceration/contusion greater the left. Orlando Kemp MD Chest CT 03/14/171312 Signed Impressions: Service Date/Time: Tuesday, March 14, 2017 13:30 - CONCLUSION: 1. Large right-sided pneumothorax. 2. Consolidated changes throughout the right lung likely combination of contusion and atelectasis. 3. Multiple right-sided rib fractures. 4. Right adrenal hemorrhage. 5. Tiny right hemothorax. Orlando Kemp MD Cervical Spine CT 03/14/171312 Signed Impressions: Service Date/Time: Tuesday, March 14, 2017 13:23 - CONCLUSION: 1. Partially imaged right apical pneumothorax. 2. No acute cervical fracture or subluxation. 3. Multilevel degenerative spondylosis of the lower cervical spine with prominent multilevel facet arthropathy. Bj Briscoe MD Abdomen/Pelvis CT 03/14/173 Signed Impressions: Service Date/Time: Tuesday, March 14, 2017 13:30 - CONCLUSION: 1. Right adrenal hemorrhage and some minimal adjacent hemorrhage along the undersurface of the liver. No extravasation. 2. Multiple right-sided rib fractures and pneumothorax. 3. Fractures of multiple right-sided ribs and left 12th rib. 4. Fractures of the left L2 and L3 transverse processes and L4 transverse process on the right. Orlando Kemp MD Chest X-Ray 03/14/17 0000 Signed Impressions: Service Date/Time: Tuesday, March 14, 2017 13:05 - CONCLUSION: Thoracostomy tube in place with resolution of pneumothorax Eugenio Gaines MD Assessment and Plan Assessment and Plan Impression: 1. 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 Left L2-L3, right L4 transverse process fractures 3. Cervical degenerative disc disease Plan: Findings were discussed with the patient in the intensive surgical care unit. Continue close neurologic checks and vital signs. Non-chemical DVT prophylaxis pending follow-up CT scan of the head on 03/15/17. May mobilize out of bed without brace as tolerated. Conservative management for transverse process fractures. Eddie Guillory MD Mar 14, 2017 22:57
[2017-03-15] VITALS (15 sets, daily range): BP systolic 140–151; BP diastolic 75–84; PULSE 80–98; RESP 14–22; TEMP 98.2–99.6; O2SAT 92–96
[2017-03-15] MEDS: SODIUM CHLOR 0.9% 1000 ML INJ 1,000 ML IV SCH ×3 (00:50→21:42)
[2017-03-15] MEDS: CHLORHEXIDINE GLUCONATE 2 % 1 PACK (2 CLOTHS) TOP SCH (03:21)
--- NOTE | 2017-03-15 04:34 | RADRPT ---
EXAM DATE/TIME: 03/15/2017 03:54 [facility] COMPARISON: CHEST SINGLE AP, March 14, 2017, 13:05. INDICATIONS : Evaluate for pnuemothorax- Post trauma MEDICAL HISTORY : None. SURGICAL HISTORY : None. ENCOUNTER: Subsequent ACUITY: 2 days PAIN SCORE: 7/10 LOCATION: Bilateral chest FINDINGS: A single portable frontal view of the chest shows a subpulmonic chest tube on the right. Tip is at th e midline. No pneumothorax. A small amount of subcutaneous air overlies the right chest. Low lung vol umes with minimal atelectasis within the bases. No infiltrates or effusions. Heart is normal in size. CONCLUSION: Right-sided chest tube without pneumothorax. Mild bibasilar atelectasis. Clayton Lucas Jr., MD on March 15, 2017 at 4:32 Board Certified Radiologist. This report was verified electronically.
[2017-03-15] MEDS: CYCLOBENZAPRINE HCL 10 MG TAB PO SCH ×3 (05:11→21:44)
[2017-03-15 05:22] LABS: AUTOMATED NEUTROPHIL # 10.1 TH/MM3 (1.8-7.7); BASOPHIL % 0.1 % (0.0-2.0); HEMATOCRIT 40.2 % (39.0-51.0); HEMO FLAGS DIFF FINAL; LYMPH % 7.8 % (9.0-44.0); LYMPHOCYTE # 0.9 TH/MM3 (1.0-4.8); MEAN CELL VOLUME 84.9 FL (80.0-100.0); MEAN CORPUSCULAR HEMOGLOBIN 27.4 PG (27.0-34.0); MEAN CORPUSCULAR HGB CONC 32.3 % (32.0-36.0); MONO % 8.6 % (0.0-8.0); NEUT % 83.5 % (16.0-70.0); PLATELET COUNT 200 TH/MM3 (150-450); RED BLOOD COUNT 4.74 MIL/MM3 (4.50-5.90); RED CELL DISTRIBUTION WIDTH 15.6 % (11.6-17.2); WHITE BLOOD COUNT 12.2 TH/MM3 (4.0-11.0)
[2017-03-15 05:40] LABS: BICARBONATE 23.6 MEQ/L (21.0-32.0); POTASSIUM 4.2 MEQ/L (3.5-5.1)
[2017-03-15] MEDS: DOCUSATE SODIUM 50 MG/SENNA 8.6 MG TAB PO SCH ×2 (08:08→19:50)
[2017-03-15] MEDS: LIDOCAINE HCL 5% PATCH T-DERMAL SCH ×2 (08:09→08:49)
[2017-03-15] MEDS: PANTOPRAZOLE SOD 40 MG DELAYED RELEASE TAB PO SCH (08:09)
--- NOTE | 2017-03-15 08:13 | HHI.CCPN ---
Subjective Remarks/Hospital Course 71 y/o man fell about 10 feet to ground sustaining blunt trauma to head, face, and right torso. Arrived with SOB and required insertion right chest tube for pneumothorax. Multiple right rib fractures. No LOC. 03/15: Hgb without change. Right lung well expanded. Neuro grossly intact. Objective Vital Signs Date Time Temp Pulse Resp B/P (MAP) Pulse Ox O2 Delivery O2 Flow Rate FiO2 03/15/17 06:00 95 Blow By 40 03/15/17 06:00 92 03/15/17 04:00 98.2 22 151/84 (106) 03/14/17 22:00 30.00 Intake and Output 03/15/17 03/15/17 03/16/17 08:00 16:00 00:00 Intake Total 1568 ml Output Total 715 ml Balance 853 ml Result Diagram: 03/15/1743903/15/17439 Objective Remarks Gen: Uncomfortable man, severe pain. Head: Dry abrasions right forehead and temporal region. Laceration over left eye , clean. Neck: Supple, no step-off. Airway widely patent. Lungs: Minimal crepitus right chest wall. No wheezes, excursions limited by pain. Heart: NL S1S2, RRR, No JVD. Abdomen: Voluntary guarding only, no peritoneal irritation. BS active. Extremities: Well perfused. No angulation. Warm. Neuro: O X 3, alert, speech clear. M/S grossly intact. A/P Assessment and Plan Assessment: 1. Fall from height with: a. Frontal lobe contusion, minor. b. Multiple right rib Fxs. c. Right pneumothorax. d. Transverse process fractures lumbar bodies. e. Adrenal bleed and minor liver lac right side. Plan: 1. Chest tube right side to suction. 2. IV analgesia. 3. Swallow evaluation. 4. Pepcid. 5. SCDs. 6. Hold chemical DVT px. 7. Serial Hgb. 8. IS. 9. Neuro checks. Overall impression: Respiratory compromise following fall from height and significant right chest/abdomen trauma. Improved today. Adam Bryant MD Mar 15, 2017 08:13
[2017-03-15] MEDS: HYDROmorphone HCL PF 1 MG/ML VIAL IV PUSH PRN ×4 (08:32→19:49)
--- NOTE | 2017-03-15 11:02 | MB ---
cc: YVANBASILIOERASTO DMD DATE OF CONSULTATION: 03/15/2017 REASON FOR CONSULTATION: Lateral orbital fracture. HISTORY OF PRESENT ILLNESS: This is a 71-year-old male who was cutting a tree / tree branch while standing on a ladder and he tells me that the tree branch fell and knocked the ladder down and he fell. Denies any loss of consciousness. He fell about 8-10 feet. I have seen and examined this patient this morning. He is alert, awake and oriented x3 in no acute distress. Denies any facial pain. Denies any blurry or double vision. Denies any neck pain. PHYSICAL EXAMINATION: VITAL SIGNS: Temperature is 98.2, pulse is 92, blood pressure 151/84, the oxygen saturation of 92, FIO2 of 40. PAST MEDICAL HISTORY: 1. Past medical history significant for hypertension. 2. Diabetes mellitus. ALLERGIES POLLEN PAST SURGICAL HISTORY: Reports Basal cell carcinoma from left cheek removed. Enterotomy. SOCIAL HISTORY: Denies any tobacco, or illicit drug use. Reports some history of occasional alcohol. MEDICATIONS 1. Losartan 2. Amlodipine. 3. Metformin. EXAMINATION HEAD, EYES, EARS, NOSE, AND THROAT: Pupils equal round react to light and accommodation. Extraocular movements are intact. Left periorbital ecchymosis that is noted. There is a laceration on the supraorbital rim that is closed, With sutures in it. Mild edema left periorbital region. Facial bones nasal bones all been palpated. No tenderness noted. No tenderness with movement of the face of the neck. Intra orally bite is stable no occlusion. No false or no false point of motion of the maxilla the mandible. No tenderness or crepitus on the facial bones. No active heme that is noted. CT scan of the facial bones. I do not appreciate any gross fractures at this point. But however, on the left supraorbital rim lateral aspect appears to be a small density that is noting there questionable for foreign object or a small little chip of bone that chipped off could be fascial fall but it is very small. No gross facial fractures noted otherwise. LABORATORY FINDINGS: White count is 12.2, H&H is 13.0 and 40.2 with a platelets of 200, PT/INR is 1.0 with a PTT of 21.2. IMPRESSION AND PLAN This is a 71-year-old male who fell while cutting a tree after the tree branch hit the latter, with a no gross facial fractures that are noted at this point of his face. However on the left supraorbital region question area of small clip of teeth or foreign object fragment, it is very small. Appears to be deep into the tissues. The site is stable. The wound has already been closed over on that side. At this point there is no surgical intervention from oral maxillofacial surgery standpoint. The patient is asymptomatic. We will reevaluate this the patient becomes symptomatic. However, the probability of that is minimal. The laceration of the left eye, orbital region was stable and closed with the ED. Any other abrasions over the forehead and other regions is stable at this point. No surgical intervention needed. He also has a frontal lobe contusion, rib fractures with a right pneumothorax, with a chest tube that is there. He also has transferred process fractures in the lumbar bodies, and multiple right rib fractures. Erasto Tiwari DMD RRT/matthew /9:19 AM /10:39 AM
--- NOTE | 2017-03-15 12:34 | RADRPT ---
EXAM DATE/TIME: 03/15/2017 12:16 [facility] COMPARISON: CT LUMBAR SPINE W/O CONTRAST, March 14, 2017, 13:30. INDICATIONS : Trauma, fall from ladder yesterday. RADIATION DOSE: 50.36 CTDIvol (mGy) MEDICAL HISTORY : Carcinoma, basal cell. Cardiovascular disease Hypertension. SURGICAL HISTORY : None. ENCOUNTER: Initial ACUITY: 1 day PAIN SCALE: Non-responsive LOCATION: Bilateral head TECHNIQUE: Multiple contiguous axial images were obtained of the head. Using automated exposure control and adj ustment of the mA and/or kV according to patient size, radiation dose was kept as low as reasonably a chievable to obtain optimal diagnostic quality images. DICOM format image data is available electro nically for review and comparison. FINDINGS: CEREBRUM: The ventricles are normal for age. No evidence of midline shift, mass lesion, hemorrhage or acute in farction. No extra-axial fluid collections are seen. POSTERIOR FOSSA: The cerebellum and brainstem are intact. The 4th ventricle is midline. The cerebellopontine angle i s unremarkable. EXTRACRANIAL: The visualized portion of the orbits is intact. SKULL: The calvaria is intact. No evidence of skull fracture. CONCLUSION: 1. No acute intracranial abnormality identified. Jey Silver MD on March 15, 2017 at 12:32 Board Certified Radiologist. This report was verified electronically.
--- NOTE | 2017-03-15 13:20 | HHI.CCPN ---
Subjective Brief History 71 y.o male fell from a ladder as he was cutting trees-level 2 trauma ,CT scans ordered by the ER.Called by the ER for right ptx-at time of my exam,GCS 15- neuro intact,moving all 4 extremities,left forehead wound with active bleeding, HD normal-no blood thinners-c/o right thoracic pain. 24 Hour Review/Hospital Course 03/15 CT head-negative in AM gcs 15 CXR stable -no PTX pain well controlled high flow 02-FIO2 40% hgb stable Objective Vital Signs Date Time Temp Pulse Resp B/P (MAP) Pulse Ox O2 Delivery O2 Flow Rate FiO2 03/15/17 09:53 93 High Flow Nasal Cannula 30.00 40 03/15/17 08:00 93 03/15/17 08:00 98.3 14 145/75 (98) Intake and Output 03/15/17 03/15/17 03/16/17 08:00 16:00 00:00 Intake Total 1568 ml Output Total 715 ml Balance 853 ml Result Diagram: 03/15/17 0440 03/15/17 0440 Imaging Last [address] 03/15/17 1200 Signed Impressions: Service Date/Time: Wednesday, March 15, 2017 12:16 - CONCLUSION: 1. No acute intracranial abnormality identified. Jey Silver MD Chest X-Ray 03/15/17 0600 Signed Impressions: Service Date/Time: Wednesday, March 15, 2017 03:54 - CONCLUSION: Right-sided chest tube without pneumothorax. Mild bibasilar atelectasis. Clayton Lucas Jr., MD Exam REGISTERED NURSE MIDWIFE GCS 15 Hemodynamic/Cardiac sTable Pulmonary/Respiratory High flow oxygen saturations 95 Abdomen/GI Nutrition Soft Urinary Catheter Assessment Urinary Catheter: Yes Vascular Central Line Catheter Vascular Central Line Catheter: No Assessment and Plan Plan Overall stable Continue high flow oxygen hold DVT prophylaxis for another 24 hours Out of bed, physical therapy CT to wall suction for another 24hr Jennifer Cheney MD Mar 15, 2017 13:20
[2017-03-15] MEDS ORDERED: AMLO10TA2 PO (17:33)
[2017-03-15] MEDS ORDERED: LOSA100T PO (17:33)
[2017-03-15] MEDS ORDERED: METF500T PO (17:33)
--- NOTE | 2017-03-15 17:36 | HHI.NSPN ---
History Chief Complaint: chest wall pain Interval History 71-year-old male fell off of a ladder while cutting down a tree, no loss of consciousness. Positive pneumothorax status post chest tube. Initial CT scan head with probable small bifrontal parafalcine subdural hematoma. CT scan of the spine with rather prominent cervical degenerative changes but no acute fracture. Positive left L2, L3, right L4 transverse process fractures Exam Results Vital Signs Date Time Temp Pulse Resp B/P (MAP) Pulse Ox O2 Delivery O2 Flow Rate FiO2 03/15/17 14:00 93 Blow By 40 03/15/17 14:00 93 03/15/17 12:00 99.5 15 144/78 (100) 03/15/17 09:53 30.00 Intake and Output 03/15/17 03/15/17 03/16/17 08:00 16:00 00:00 Intake Total 1568 ml Output Total 715 ml Balance 853 ml Physical Examination Respirations clear nonlabored Heart rate regular Abdomen soft Sutured laceration left supraorbital region No CSF otorrhea or rhinorrhea Mild left facial-periorbital ecchymosis Awake and alert Oriented X 3 Speech is clear Conversant and appropriate Follow simple commands well Answers questions appropriately Reasonable judgment and insight Recent and remote memory are intact No evidence of anxiety or depression Pupils are equal and reactive to accommodation. Extra-ocular movements, visual mcclendon to confrontation, facial sensorimotor, tongue, palate, sternocleidomastoid testing, hearing to finger rub testing, and bilateral shoulder shrug are all intact. Sensation is intact to light touch in all extremities Strength normal major flexion and extension groups all extremities Donnie's absent bilaterally No ankle clonus Plantar responses absent bilateral Fine motor movements intact upper extremities Lab, Micro, Other Results 03/15/17 follow-up CT scan head images reviewed by the undersigned. No definite evidence of intracranial hemorrhage, edema, contusion, mass effect, hydrocephalus, pneumocephalus, fracture. Head CT 03/15/17 1200 Signed Impressions: Service Date/Time: Wednesday, March 15, 2017 12:16 - CONCLUSION: 1. No acute intracranial abnormality identified. Jey Silver MD Chest X-Ray 03/15/17 0600 Signed Impressions: Service Date/Time: Wednesday, March 15, 2017 03:54 - CONCLUSION: Right-sided chest tube without pneumothorax. Mild bibasilar atelectasis. Clayton Lucas Jr., MD Medical Decision Making Impression and Plan Impression: 1. 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 2. Left L2-L3, right L4 transverse process fractures Plan: Findings were discussed with the patient and family. No neurosurgical intervention anticipated at this point. May begin Lovenox as indicated May mobilize out of bed without TLSO brace Eddie Guillory MD Mar 15, 2017 17:36
[2017-03-15] MEDS: MAGNESIUM HYDROXIDE SUSP 30 ML CUP PO SCH (19:50)
[2017-03-16] VITALS (15 sets, daily range): BP systolic 117–144; BP diastolic 66–75; PULSE 76–100; RESP 15–20; TEMP 98.5–99.9; O2SAT 91–98
[2017-03-16] MEDS: CHLORHEXIDINE GLUCONATE 2 % 1 PACK (2 CLOTHS) TOP SCH (03:33)
--- NOTE | 2017-03-16 05:53 | RADRPT ---
EXAM DATE/TIME: 03/16/2017 04:27 [facility] COMPARISON: CHEST SINGLE AP, March 15, 2017, 3:54. INDICATIONS : Trauma, right pneumothorax. MEDICAL HISTORY : Carcinoma, basal cell. Cardiovascular disease Hypertension SURGICAL HISTORY : None. ENCOUNTER: Subsequent ACUITY: 2 days PAIN SCORE: Non-responsive. LOCATION: Bilateral FINDINGS: A single portable frontal view of the chest shows a right thoracostomy tube. No pneumothorax. Lungs a re clear. No effusions. Heart is normal in size. CONCLUSION: Right thoracostomy tube without pneumothorax. Clayton Lucas Jr., MD on March 16, 2017 at 5:51 Board Certified Radiologist. This report was verified electronically.
[2017-03-16] MEDS: CYCLOBENZAPRINE HCL 10 MG TAB PO SCH ×3 (05:57→20:50)
[2017-03-16] MEDS: HYDROmorphone HCL PF 1 MG/ML VIAL IV PUSH PRN ×4 (06:00→20:55)
[2017-03-16 06:03] LABS: BLOOD GAS BASE EXCESS 1.6 mmol/L (-2-2); BLOOD GAS CARBOXYHEMOGLOBIN 1.4 % (0-4); BLOOD GAS HCO3 26 mmol/L (22-26); BLOOD GAS METHEMOGLOBIN 0.8 % (0-2); BLOOD GAS O2 HGB SATURATION 94 % (90-100); BLOOD GAS OXYGEN CONTENT 15.6 Vol % (12.0-20.0); BLOOD GAS PCO2 40 mmHg (38-42); BLOOD GAS PO2 77 mmHg (61-120); BLOOD GAS TOTAL HGB 11.9 G/DL (12.0-16.0); CRITICAL VALUE NO; TEMP CORR TO 98.6
[2017-03-16 06:04] LABS: DRAW SITE RT RADIAL; FIO2 50 %; LITER FLOW 30 L/M; NUMBER OF ARTERIAL PUNCTURES 2; OXYGEN DEVICE HFNC; STAT NO; ULNAR PULSE PRESENT
[2017-03-16] MEDS: LIDOCAINE HCL 5% PATCH T-DERMAL SCH ×2 (09:49→09:51)
[2017-03-16] MEDS: PANTOPRAZOLE SOD 40 MG DELAYED RELEASE TAB PO SCH (09:52)
[2017-03-16] MEDS: oxyCODONE/ACETAMINOPHEN 5 MG/325 MG TAB PO PRN (09:52)
[2017-03-16] MEDS: DOCUSATE SODIUM 50 MG/SENNA 8.6 MG TAB PO SCH ×2 (09:52→20:50)
[2017-03-16] MEDS: LACTULOSE SYRUP 20 GM/30 ML CUP PO SCH (09:53)
[2017-03-16 10:37] LABS: AUTOMATED NEUTROPHIL # 9.7 TH/MM3 (1.8-7.7); BASOPHIL % 0.2 % (0.0-2.0); EOSINOPHIL # 0.1 TH/MM3 (0-0.4); EOSINOPHIL % 1.1 % (0.0-4.0); HEMATOCRIT 38.1 % (39.0-51.0); HEMO FLAGS DIFF FINAL; LYMPH % 9.3 % (9.0-44.0); LYMPHOCYTE # 1.1 TH/MM3 (1.0-4.8); MEAN CELL VOLUME 84.6 FL (80.0-100.0); MEAN CORPUSCULAR HEMOGLOBIN 27.1 PG (27.0-34.0); MONO % 9.2 % (0.0-8.0); NEUT % 80.2 % (16.0-70.0); PLATELET COUNT 163 TH/MM3 (150-450); RED BLOOD COUNT 4.51 MIL/MM3 (4.50-5.90); RED CELL DISTRIBUTION WIDTH 15.1 % (11.6-17.2); WHITE BLOOD COUNT 12.1 TH/MM3 (4.0-11.0)
[2017-03-16 11:14] LABS: ANION GAP 5 MEQ/L (5-15); AST (GOT) 53 U/L (15-37); BICARBONATE 28.2 MEQ/L (21.0-32.0); BLOOD UREA NITROGEN 15 MG/DL (7-18); CHLORIDE 102 MEQ/L (98-107); GLOMERULAR FILTRATION RATE 78 ML/MIN (>89); SODIUM (NA) 135 MEQ/L (136-145)
[2017-03-16 11:15] LABS: ALT (GPT) 71 U/L (12-78)
[2017-03-16 11:17] LABS: ALKALINE PHOSPHATASE 79 U/L (45-117)
[2017-03-16] MEDS ORDERED: GLUCAGON 1 MG/ML VIAL OTHER PRN (11:30)
[2017-03-16] MEDS: LOSARTAN 50 MG TAB PO SCH (11:30)
[2017-03-16] MEDS ORDERED: DEXTROSE 50% IN WATER 50 ML SYRINGE IV PUSH PRN (11:30)
[2017-03-16] MEDS: INSULIN ASPART SUPPLEMENTAL SCALE SQ SCH ×2 (12:00→18:00)
[2017-03-16] MEDS: ENOXAPARIN SODIUM 30 MG/0.3 ML SYRINGE SQ SCH (12:47)
--- NOTE | 2017-03-16 13:15 | HHI.CCPN ---
Subjective Brief History 71 y.o male fell from a ladder as he was cutting trees-level 2 trauma ,CT scans ordered by the ER.Called by the ER for right ptx-at time of my exam,GCS 15- neuro intact,moving all 4 extremities,left forehead wound with active bleeding, HD normal-no blood thinners-c/o right thoracic pain. 24 Hour Review/Hospital Course 03/15 CT head-negative in AM gcs 15 CXR stable -no PTX pain well controlled high flow 02-FIO2 40% hgb stable 03/16 GCS 15, pain is well-controlled, FiO2 down to 50% on high flow oxygen ,lungs clear chest x-ray improved, hgb stable Objective Vital Signs Date Time Temp Pulse Resp B/P (MAP) Pulse Ox O2 Delivery O2 Flow Rate FiO2 03/16/17 06:00 95 Blow By 50 03/16/17 06:00 100 03/16/17 04:00 99.0 20 144/71 (95) 03/15/17 22:05 30.00 Intake and Output 03/16/17 03/16/17 03/16/17 07:59 15:59 23:59 Intake Total 950 ml Output Total 650 ml Balance 300 ml Result Diagram: 03/16/17 1006 03/16/17 1006 Other Results Laboratory Tests Test 03/16/17 05:45 Blood Gas Puncture Site RT RADIAL Blood Gas Patient Temperature 98.6 Blood Gas HCO3 26 mmol/L (22-26) Blood Gas Base Excess 1.6 mmol/L (-2-2) Blood Gas Oxygen Saturation 94 % (90-100) Arterial Blood pH 7.42 (7.380-7.420) Arterial Blood Partial Pressure CO2 40 mmHg (38-42) Arterial Blood Partial Pressure O2 77 mmHg (61-120) Arterial Blood Oxygen Content 15.6 Vol % (12.0-20.0) Arterial Blood Carboxyhemoglobin 1.4 % (0-4) Arterial Blood Methemoglobin 0.8 % (0-2) Blood Gas Hemoglobin 11.9 G/DL (12.0-16.0) Oxygen Delivery Device HFNC Blood Gas Liter Flow 30 L/M Blood Gas Inspired Oxygen 50 % Imaging Last 24 hours Impressions Chest X-Ray 03/16/17 0600 Signed Impressions: Service Date/Time: Thursday, March 16, 2017 04:27 - CONCLUSION: Right thoracostomy tube without pneumothorax. Clayton Lucas Jr., MD Exam PHARMACY SCHEDULER GCS 15 Hemodynamic/Cardiac stable Pulmonary/Respiratory high flow O2 Abdomen/GI Nutrition soft Assessment and Plan Plan Overall stable-continues to improve clinically Continue high flow oxygen-wean to nasal cannula last Start DVT prophylaxis f Out of bed, physical therapy CT to water seal Diet-regular Restart home Jennifer Treviño MD Mar 16, 2017 13:15
[2017-03-16] MEDS: oxyCODONE/ACETAMINOPHEN 10 MG/325 MG TAB PO PRN (15:17)
--- NOTE | 2017-03-16 16:59 | HHI.CCPN ---
Subjective Remarks/Hospital Course 71 y/o man fell about 10 feet to ground sustaining blunt trauma to head, face, and right torso. Arrived with SOB and required insertion right chest tube for pneumothorax. Multiple right rib fractures. No LOC. 03/15: Hgb without change. Right lung well expanded. Neuro grossly intact. 03/16: Neuro grossly normal. Right lung well expanded. Objective Vital Signs Date Time Temp Pulse Resp B/P (MAP) Pulse Ox O2 Delivery O2 Flow Rate FiO2 03/16/17 14:00 97 Blow By 40 03/16/17 14:00 84 03/16/17 12:00 98.9 15 131/71 (91) 03/15/17 22:05 30.00 Intake and Output 03/16/17 03/16/17 03/17/17 08:00 16:00 00:00 Intake Total 950 ml Output Total 650 ml Balance 300 ml Result Diagram: 03/16/17 1006 03/16/17 1006 Other Results Laboratory Tests Test 03/16/17 05:45 Blood Gas Puncture Site RT RADIAL Blood Gas Patient Temperature 98.6 Blood Gas HCO3 26 mmol/L (22-26) Blood Gas Base Excess 1.6 mmol/L (-2-2) Blood Gas Oxygen Saturation 94 % (90-100) Arterial Blood pH 7.42 (7.380-7.420) Arterial Blood Partial Pressure CO2 40 mmHg (38-42) Arterial Blood Partial Pressure O2 77 mmHg (61-120) Arterial Blood Oxygen Content 15.6 Vol % (12.0-20.0) Arterial Blood Carboxyhemoglobin 1.4 % (0-4) Arterial Blood Methemoglobin 0.8 % (0-2) Blood Gas Hemoglobin 11.9 G/DL (12.0-16.0) Oxygen Delivery Device HFNC Blood Gas Liter Flow 30 L/M Blood Gas Inspired Oxygen 50 % Objective Remarks Gen: Uncomfortable man, moderate pain. Head: Dry abrasions right forehead and temporal region. Laceration over left eye , clean. Neck: Supple, no step-off. Airway widely patent. Lungs: Minimal crepitus right chest wall. No wheezes, excursions limited by pain. Heart: NL S1S2, RRR, No JVD. Abdomen: Voluntary guarding only, no peritoneal irritation. BS active. Extremities: Well perfused. No angulation. Warm. Neuro: O X 3, alert, speech clear. M/S grossly intact. A/P Assessment and Plan Assessment: 1. Fall from height with: a. Frontal lobe contusion, minor. b. Multiple right rib Fxs. c. Right pneumothorax. d. Transverse process fractures lumbar bodies. e. Adrenal bleed and minor liver lac right side. Plan: 1. Chest tube right side to suction. 2. IV analgesia. 3. Swallow evaluation. 4. Pepcid. 5. SCDs. 6. Hold chemical DVT px. 7. Serial Hgb. 8. IS. 9. Neuro checks. Overall impression: Respiratory compromise following fall from height and significant right chest/abdomen trauma. Improved more. Followup head CT without injury. Adam Bryant MD Mar 16, 2017 16:59
--- NOTE | 2017-03-16 17:09 | HHI.NSPN ---
History Chief Complaint: chest wall pain Interval History 71-year-old male fell off of a ladder while cutting down a tree, no loss of consciousness. Positive pneumothorax status post chest tube. Initial CT scan head with probable small bifrontal parafalcine subdural hematoma. CT scan of the spine with rather prominent cervical degenerative changes but no acute fracture. Positive left L2, L3, right L4 transverse process fractures Exam Results Vital Signs Date Time Temp Pulse Resp B/P (MAP) Pulse Ox O2 Delivery O2 Flow Rate FiO2 03/16/17 14:00 97 Blow By 40 03/16/17 14:00 84 03/16/17 12:00 98.9 15 131/71 (91) 03/15/17 22:05 30.00 Intake and Output 03/16/17 03/16/17 03/17/17 08:00 16:00 00:00 Intake Total 950 ml Output Total 650 ml Balance 300 ml Physical Examination Respirations clear nonlabored Heart rate regular Abdomen soft Sutured laceration left supraorbital region No CSF otorrhea or rhinorrhea Mild left facial-periorbital ecchymosis Awake and alert Oriented X 3 Speech is clear Conversant and appropriate Follow simple commands well Answers questions appropriately Reasonable judgment and insight Recent and remote memory are intact No evidence of anxiety or depression Sitting up in a chair today Sensation is intact to light touch in all extremities Strength normal major flexion and extension groups all extremities Fine motor movements intact upper extremities Lab, Micro, Other Results Laboratory Tests Test 03/16/17 05:45 03/16/17 10:06 Blood Gas Puncture Site RT RADIAL Blood Gas Patient Temperature 98.6 Blood Gas HCO3 26 mmol/L Blood Gas Base Excess 1.6 mmol/L Blood Gas Oxygen Saturation 94 % Arterial Blood pH 7.42 Arterial Blood Partial Pressure CO2 40 mmHg Arterial Blood Partial Pressure O2 77 mmHg Arterial Blood Oxygen Content 15.6 Vol % Arterial Blood Carboxyhemoglobin 1.4 % Arterial Blood Methemoglobin 0.8 % Blood Gas Hemoglobin 11.9 G/DL Oxygen Delivery Device HFNC Blood Gas Liter Flow 30 L/M Blood Gas Inspired Oxygen 50 % White Blood Count 12.1 TH/MM3 Red Blood Count 4.51 MIL/MM3 Hemoglobin 12.2 GM/DL Hematocrit 38.1 % Mean Corpuscular Volume 84.6 FL Mean Corpuscular Hemoglobin 27.1 PG Mean Corpuscular Hemoglobin Concent 32.0 % Red Cell Distribution Width 15.1 % Platelet Count 163 TH/MM3 Mean Platelet Volume 8.0 FL Neutrophils (%) (Auto) 80.2 % Lymphocytes (%) (Auto) 9.3 % Monocytes (%) (Auto) 9.2 % Eosinophils (%) (Auto) 1.1 % Basophils (%) (Auto) 0.2 % Neutrophils # (Auto) 9.7 TH/MM3 Lymphocytes # (Auto) 1.1 TH/MM3 Monocytes # (Auto) 1.1 TH/MM3 Eosinophils # (Auto) 0.1 TH/MM3 Basophils # (Auto) 0.0 TH/MM3 CBC Comment DIFF FINAL Differential Comment Blood Urea Nitrogen 15 MG/DL Creatinine 0.95 MG/DL Random Glucose 127 MG/DL Total Protein 6.6 GM/DL Albumin 3.1 GM/DL Calcium Level 8.5 MG/DL Alkaline Phosphatase 79 U/L Aspartate Amino Transf (AST/SGOT) 53 U/L Alanine Aminotransferase (ALT/SGPT) 71 U/L Total Bilirubin 1.0 MG/DL Sodium Level 135 MEQ/L Potassium Level 4.0 MEQ/L Chloride Level 102 MEQ/L Carbon Dioxide Level 28.2 MEQ/L Anion Gap 5 MEQ/L Estimat Glomerular Filtration Rate 78 ML/MIN Medical Decision Making Impression and Plan Impression: 1. 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 2. Left L2-L3, right L4 transverse process fractures Plan: Stable for transfer to regular floor from neurosurgery standpoint. No neurosurgical intervention anticipated at this point. May begin Lovenox as indicated May mobilize out of bed without TLSO brace Sodium 135. Monitor. Eddie Guillory MD Mar 16, 2017 17:09
[2017-03-16] MEDS: MAGNESIUM HYDROXIDE SUSP 30 ML CUP PO SCH (20:50)
[2017-03-17] VITALS (12 sets, daily range): BP systolic 110–137; BP diastolic 61–81; PULSE 80–92; RESP 12–19; TEMP 98.3–98.8; O2SAT 92–97
[2017-03-17] MEDS: ENOXAPARIN SODIUM 30 MG/0.3 ML SYRINGE SQ SCH ×2 (00:21→16:06)
[2017-03-17] MEDS: HYDROmorphone HCL PF 1 MG/ML VIAL IV PUSH PRN ×3 (00:33→16:07)
[2017-03-17] MEDS: oxyCODONE/ACETAMINOPHEN 10 MG/325 MG TAB PO PRN ×4 (03:38→22:19)
[2017-03-17] MEDS: CHLORHEXIDINE GLUCONATE 2 % 1 PACK (2 CLOTHS) TOP SCH (04:00)
[2017-03-17] MEDS: SODIUM CHLOR 0.9% 1000 ML INJ 1,000 ML IV SCH (04:13)
[2017-03-17] MEDS: CYCLOBENZAPRINE HCL 10 MG TAB PO SCH ×3 (04:27→22:19)
[2017-03-17] MEDS: INSULIN ASPART SUPPLEMENTAL SCALE SQ SCH ×4 (05:14→18:00)
--- NOTE | 2017-03-17 05:42 | RADRPT ---
EXAM DATE/TIME: 03/17/2017 04:13 [facility] COMPARISON: CHEST SINGLE AP, March 16, 2017, 4:27. INDICATIONS : Evaluate for pnuemothorax post trauma- MEDICAL HISTORY : Carcinoma, basal cell. Cardiovascular disease. Hypertension. SURGICAL HISTORY : None. ENCOUNTER: Subsequent ACUITY: 3 days PAIN SCORE: Non-responsive. LOCATION: Bilateral chest FINDINGS: Right base thoracostomy tube remains in place. No evidence of pneumothorax. There is mild bibasilar c ontusion or atelectasis. Accounting for rotation, the cardiac contours are grossly stable. CONCLUSION: Slight interval worsening in aeration. No pneumothorax Eugenio Gaines MD on March 17, 2017 at 5:40 Board Certified Radiologist. This report was verified electronically.
[2017-03-17 06:17] LABS: BASOPHIL % 0.3 % (0.0-2.0); EOSINOPHIL # 0.2 TH/MM3 (0-0.4); HEMATOCRIT 34.9 % (39.0-51.0); HEMO FLAGS DIFF FINAL; LYMPH % 11.8 % (9.0-44.0); LYMPHOCYTE # 1.2 TH/MM3 (1.0-4.8); MEAN CELL VOLUME 84.9 FL (80.0-100.0); MEAN CORPUSCULAR HEMOGLOBIN 27.9 PG (27.0-34.0); MEAN CORPUSCULAR HGB CONC 32.9 % (32.0-36.0); MONO % 10.5 % (0.0-8.0); NEUT % 75.4 % (16.0-70.0); PLATELET COUNT 155 TH/MM3 (150-450); WHITE BLOOD COUNT 10.6 TH/MM3 (4.0-11.0)
[2017-03-17 06:43] LABS: ANION GAP 7 MEQ/L (5-15); AST (GOT) 33 U/L (15-37); BICARBONATE 27.2 MEQ/L (21.0-32.0); BLOOD UREA NITROGEN 21 MG/DL (7-18); CHLORIDE 99 MEQ/L (98-107); GLOMERULAR FILTRATION RATE 70 ML/MIN (>89); POTASSIUM 4.1 MEQ/L (3.5-5.1); SODIUM (NA) 133 MEQ/L (136-145)
[2017-03-17 06:47] LABS: ALKALINE PHOSPHATASE 72 U/L (45-117); ALT (GPT) 48 U/L (12-78); TOTAL BILIRUBIN ADULT 0.7 MG/DL (0.2-1.0)
[2017-03-17] MEDS: LOSARTAN 50 MG TAB PO SCH (08:21)
[2017-03-17] MEDS: PANTOPRAZOLE SOD 40 MG DELAYED RELEASE TAB PO SCH (08:30)
[2017-03-17] MEDS: DOCUSATE SODIUM 50 MG/SENNA 8.6 MG TAB PO SCH ×2 (08:30→22:19)
[2017-03-17] MEDS: LIDOCAINE HCL 5% PATCH T-DERMAL SCH ×2 (08:31)
[2017-03-17] MEDS: LACTULOSE SYRUP 20 GM/30 ML CUP PO SCH (08:31)
--- NOTE | 2017-03-17 10:03 | HHI.NSPN ---
(Dada Roland) History Chief Complaint: Right-sided chest wall pain (Dada Roland) Interval History 71-year-old male fell off of a ladder while cutting down a tree, no loss of consciousness. Positive pneumothorax status post chest tube. Initial CT scan head with probable small bifrontal parafalcine subdural hematoma. CT scan of the spine with rather prominent cervical degenerative changes but no acute fracture. Positive left L2, L3, right L4 transverse process fractures 03/17: The patient is asleep but awakens to voice. After that he is awake and readily interacts. He states that it is "a mixed bag" when asked how he feels today. He reports that his pain is better today and that he has pain to the right anterolateral chest wall/ribs. He states he really doesn't have pain to the back. He does have some abdominal pain secondary to not having a bowel movement. He does endorse shortness of breath do to the rib fractures. (Dada Roland) System Review Comments Constitutional: Patient denies any fever or chills. HEENT: Patient denies any visual or hearing difficulty. Respiratory: Patient does have shortness of breath secondary to rib fractures. He denies any wheezing or productive cough. Cardiovascular: Patient with right-sided chest wall/rib pain. He denies any other chest pain, palpitations or irregular heartbeat. Gastrointestinal: Patient has some diffuse abdominal pain due to not having a bowel movement yet. He denies any nausea, vomiting or incontinence of stool. Genitourinary: Patient denies any incontinence of urine. Musculoskeletal: Patient complains of right-sided chest wall/rib pain. He denies any pain to the neck, back or extremities. Neurologic: Patient does have a headache to the frontal region. He denies any dizziness, numbness, tingling or weakness. (Dada Roland) Exam Results 03/15/17 03/15/17 03/16/17 03/16/17 03/17/17 03/17/17 06:00 18:00 06:00 18:00 06:00 18:00 Intake Total 1568 ml 1841 ml 950 ml 1206 ml 600 ml Output Total 715 ml 730 ml 650 ml 575 ml 430 ml Balance 853 ml 1111 ml 300 ml 631 ml 170 ml Intake Oral 720 ml 960 ml 600 ml 720 ml 400 ml IV Total 848 ml 881 ml 350 ml 486 ml 200 ml Output Urine Total 625 ml 600 ml 550 ml 500 ml 400 ml Chest Tube Drainage Total 90 ml 130 ml 100 ml 75 ml 30 ml # Bowel Movements 0 0 0 0 0 Vital Signs Date Time Temp Pulse Resp B/P (MAP) Pulse Ox O2 Delivery O2 Flow Rate FiO2 03/17/17 07:04 12 03/17/17 06:00 Blow By 30.00 55 03/17/17 05:11 12 03/17/17 04:00 98.3 80 15 126/70 (88) 94 03/17/17 04:00 Blow By 30.00 55 03/17/17 02:00 Blow By 30.00 55 03/17/17 00:00 98.8 81 12 133/72 (92) 93 03/17/17 00:00 Blow By 30.00 55 03/16/17 22:00 Blow By 30.00 55 03/16/17 21:36 98 High Flow Nasal Cannula 30.00 55 03/16/17 20:00 Blow By 40 03/16/17 20:00 98.7 84 15 136/75 (95) 93 03/16/17 18:00 95 Blow By 40 03/16/17 18:00 88 03/16/17 17:08 94 High Flow Nasal Cannula 30.00 40 03/16/17 16:00 96 Blow By 40 03/16/17 16:00 99.9 90 17 127/72 (90) 96 03/16/17 16:00 90 03/16/17 14:00 97 Blow By 40 03/16/17 14:00 84 03/16/17 13:02 97 High Flow Nasal Cannula 30.00 50 03/16/17 12:00 94 03/16/17 12:00 94 Blow By 40 03/16/17 12:00 98.9 94 15 131/71 (91) 94 03/16/17 10:00 98 03/16/17 10:00 95 Blow By 40 03/16/17 08:00 95 Blow By 40 03/16/17 08:00 77 03/16/17 08:00 98.6 77 17 117/66 (83) 93 03/16/17 07:30 96 High Flow Nasal Cannula 30.00 70 03/16/17 06:00 95 Blow By 50 03/16/17 06:00 100 03/16/17 04:00 95 Blow By 50 03/16/17 04:00 99.0 87 20 144/71 (95) 95 03/16/17 04:00 87 03/16/17 03:00 95 Blow By 50 03/16/17 02:00 91 Blow By 60 03/16/17 02:00 82 03/16/17 00:00 91 Blow By 70 03/16/17 00:00 98.5 76 19 130/67 (88) 91 03/16/17 00:00 76 03/15/17 22:10 92 Blow By 70 03/15/17 22:05 94 High Flow Nasal Cannula 30.00 70 03/15/17 22:00 92 Blow By 50 03/15/17 22:00 80 03/15/17 21:40 92 Blow By 50 03/15/17 20:35 94 High Flow Nasal Cannula 30.00 40 03/15/17 20:00 99.2 86 19 142/78 (99) 94 03/15/17 20:00 86 03/15/17 20:00 93 Blow By 40 03/15/17 18:00 93 Blow By 40 03/15/17 18:00 81 03/15/17 16:00 93 Blow By 40 03/15/17 16:00 88 03/15/17 16:00 99.6 88 19 140/78 (98) 94 03/15/17 14:00 93 Blow By 40 03/15/17 14:00 93 03/15/17 12:00 93 Blow By 40 03/15/17 12:00 99.5 86 15 144/78 (100) 96 03/15/17 12:00 86 03/15/17 10:00 80 03/15/17 10:00 93 Blow By 40 03/15/17 09:53 93 High Flow Nasal Cannula 30.00 40 03/15/17 08:00 93 03/15/17 08:00 98.3 93 14 145/75 (98) 93 03/15/17 08:00 93 Blow By 40 03/15/17 06:00 95 Blow By 40 03/15/17 06:00 92 03/15/17 04:00 92 Blow By 40 03/15/17 04:00 98.2 86 22 151/84 (106) 92 03/15/17 04:00 86 03/15/17 02:00 92 Blow By 40 03/15/17 02:00 88 03/15/17 00:00 98 03/15/17 00:00 92 Blow By 40 03/15/17 00:00 98.5 98 17 149/79 (102) 92 03/14/17 22:00 96 03/14/17 22:00 93 Blow By 40 03/14/17 22:00 95 High Flow Nasal Cannula 30.00 40 03/14/17 20:00 99.0 92 19 141/78 (99) 94 03/14/17 20:00 94 Blow By 40 03/14/17 20:00 92 03/14/17 18:00 94 03/14/17 18:00 Blow By 40 03/14/17 16:00 91 Venturi Mask 40 03/14/17 16:00 94 High Flow Nasal Cannula 30.00 40 03/14/17 16:00 99.0 97 16 138/74 (95) 91 03/14/17 13:11 96 15.00 (Dada Roland) Physical Examination GENERAL: This is a well-nourished, well-developed patient, no apparent distress. SKIN: Scattered abrasions & ecchymosis to the face & extremities. HEENT: Normocephalic, left supraorbital laceration approximated w/sutures, facial abrasions & ecchymosis. PERRLA, EOMI. No otorrhea or rhinorrhea. MMM & pink, no lesions, tongue midline to protrusion. NECK: Midline cervical spine NTTP, no pain w/active ROM, no JVD, trachea midline. CARDIOVASCULAR: S1S2 w/RRR w/o M/G/R, radial & pedal pulses 2+ bilaterally, cap refill < 2 sec, 1+ edema to dependent extremities. Monitor is sinus rhythm w/o any ectopy noted. RESPIRATORY: Right anterolateral chest wall TTP, CTAB but diminished throughout w/o W/R/R, equal excursion, mildly laboured, on high flow oxygen by nasal cannula. GASTROINTESTINAL: Abdomen distended, nontender, positive bowel sounds. MUSCULOSKELETAL: CALZADA w/o difficulty, no evident deformity or clubbing. Mildly tender to mid thoracic & lower lumbar spine & paraspinals to palpation. NEUROLOGICAL: AAOx3. Speech clear & appropriate. PERRLA, EOMI. Follows simple commands w/o difficulty. Sensation intact to light touch to all extremities. Motor strength 5/5 to all major flexion & extension muscle groups. (Dada Roland) Lab, Micro, Other Results Recent Impressions Chest X-Ray 03/17/17 06 Signed Impressions: Service Date/Time: Friday, March 17, 2017 04:13 - CONCLUSION: Slight interval worsening in aeration. No pneumothorax Eugenio Gaines MD Chest X-Ray 03/16/17 06 Signed Impressions: Service Date/Time: Thursday, March 16, 2017 04:27 - CONCLUSION: Right thoracostomy tube without pneumothorax. Clayton Lucas Jr., MD Head CT 03/15/17 1200 Signed Impressions: Service Date/Time: Wednesday, March 15, 2017 12:16 - CONCLUSION: 1. No acute intracranial abnormality identified. Jey Silver MD Chest X-Ray 03/15/17 0600 Signed Impressions: Service Date/Time: Wednesday, March 15, 2017 03:54 - CONCLUSION: Right-sided chest tube without pneumothorax. Mild bibasilar atelectasis. Clayton Lucas Jr., MD Thoracic Spine CT 03/14/17 1313 Signed Impressions: Service Date/Time: Tuesday, March 14, 2017 13:30 - CONCLUSION: 1. No evidence for thoracic spine fracture or subluxation. 2. Redemonstration of multiple right sided and left 11th posterior rib fractures. 3. Left-sided L2 and L3 transverse process fractures. 4. Small right hemothorax, large pneumothorax, and bilateral posterior pulmonary contusions. Bj Briscoe MD Pelvis X-Ray 03/14/17 1313 Signed Impressions: Service Date/Time: Tuesday, March 14, 2017 13:05 - CONCLUSION: No acute bony injury Eugenio Gaines MD Maxillofacial CT 03/14/171312 Signed Impressions: Service Date/Time: Tuesday, March 14, 2017 13:23 - CONCLUSION: 1. Moderate sized left frontal periorbital scalp hematoma with small linear calcified density projecting along the lateral superior orbital rim which may reflect a small fracture fragment or possibly a small foreign body. 2. Otherwise, no evidence for facial bone fractures. 3. Mild mucosal disease involving the ethmoid and maxillary sinuses. Bj Briscoe MD Lumbar Spine CT 03/14/171312 Signed Impressions: Service Date/Time: Tuesday, March 14, 2017 13:30 - CONCLUSION: 1. Left L2 and L3 and right L4 transverse process fractures. 2. Otherwise, no significant lumbar vertebral fracture or subluxation. 3. Degenerative spondylosis of the lower lumbar spine. Bj Briscoe MD Head CT 03/14/171312 Signed Impressions: Service Date/Time: Tuesday, March 14, 2017 13:23 - CONCLUSION: 1. Questionable minimal hemorrhage in the frontal extra-axial space bilaterally. 2. No midline shift or mass effect. 3. Frontal soft tissue laceration/contusion greater the left. Orlando Kemp MD Chest CT 03/14/171312 Signed Impressions: Service Date/Time: Tuesday, March 14, 2017 13:30 - CONCLUSION: 1. Large right-sided pneumothorax. 2. Consolidated changes throughout the right lung likely combination of contusion and atelectasis. 3. Multiple right-sided rib fractures. 4. Right adrenal hemorrhage. 5. Tiny right hemothorax. Orlando Kemp MD Cervical Spine CT 03/14/171312 Signed Impressions: Service Date/Time: Tuesday, March 14, 2017 13:23 - CONCLUSION: 1. Partially imaged right apical pneumothorax. 2. No acute cervical fracture or subluxation. 3. Multilevel degenerative spondylosis of the lower cervical spine with prominent multilevel facet arthropathy. Bj Briscoe MD Abdomen/Pelvis CT 03/14/171312 Signed Impressions: Service Date/Time: Tuesday, March 14, 2017 13:30 - CONCLUSION: 1. Right adrenal hemorrhage and some minimal adjacent hemorrhage along the undersurface of the liver. No extravasation. 2. Multiple right-sided rib fractures and pneumothorax. 3. Fractures of multiple right-sided ribs and left 12th rib. 4. Fractures of the left L2 and L3 transverse processes and L4 transverse process on the right. Orlando Kemp MD Laboratory Tests Test 03/14/17 13:15 03/14/17 16:00 03/15/17 04:40 03/16/17 05:45 White Blood Count 16.4 TH/MM3 12.2 TH/MM3 Red Blood Count 4.93 MIL/MM3 4.74 MIL/MM3 Hemoglobin 13.5 GM/DL 13.0 GM/DL Bedside Hemoglobin 14.3 G/DL Hematocrit 42.3 % 40.2 % Bedside Hematocrit 42.0 % Mean Corpuscular Volume 85.7 FL 84.9 FL Mean Corpuscular Hemoglobin 27.4 PG 27.4 PG Mean Corpuscular Hemoglobin Concent 32.0 % 32.3 % Red Cell Distribution Width 15.3 % 15.6 % Platelet Count 207 TH/MM3 200 TH/MM3 Mean Platelet Volume 8.3 FL 8.2 FL Neutrophils (%) (Auto) 75.3 % 83.5 % Lymphocytes (%) (Auto) 17.5 % 7.8 % Monocytes (%) (Auto) 6.2 % 8.6 % Eosinophils (%) (Auto) 0.7 % 0.0 % Basophils (%) (Auto) 0.3 % 0.1 % Neutrophils # (Auto) 12.4 TH/MM3 10.1 TH/MM3 Lymphocytes # (Auto) 2.9 TH/MM3 0.9 TH/MM3 Monocytes # (Auto) 1.0 TH/MM3 1.0 TH/MM3 Eosinophils # (Auto) 0.1 TH/MM3 0.0 TH/MM3 Basophils # (Auto) 0.0 TH/MM3 0.0 TH/MM3 CBC Comment DIFF FINAL DIFF FINAL Differential Comment Prothrombin Time 11.0 SEC Prothromb Time International Ratio 1.0 RATIO Activated Partial Thromboplast Time 21.2 SEC Bedside Sodium 142 MMOL/L Bedside Potassium 3.7 MMOL/L Bedside Chloride 106 MMOL/L Bedside Blood Urea Nitrogen 14 MG/DL Bedside Creatinine 1.3 MG/DL Bedside Glucose 133 MG/DL Nasal Screen MRSA (PCR) MRSA NOT DETECTED Blood Urea Nitrogen 16 MG/DL Creatinine 1.11 MG/DL Random Glucose 172 MG/DL Calcium Level 8.6 MG/DL Sodium Level 138 MEQ/L Potassium Level 4.2 MEQ/L Chloride Level 105 MEQ/L Carbon Dioxide Level 23.6 MEQ/L Anion Gap 9 MEQ/L Estimat Glomerular Filtration Rate 65 ML/MIN Blood Gas Puncture Site RT RADIAL Blood Gas Patient Temperature 98.6 Blood Gas HCO3 26 mmol/L Blood Gas Base Excess 1.6 mmol/L Blood Gas Oxygen Saturation 94 % Arterial Blood pH 7.42 Arterial Blood Partial Pressure CO2 40 mmHg Arterial Blood Partial Pressure O2 77 mmHg Arterial Blood Oxygen Content 15.6 Vol % Arterial Blood Carboxyhemoglobin 1.4 % Arterial Blood Methemoglobin 0.8 % Blood Gas Hemoglobin 11.9 G/DL Oxygen Delivery Device HFNC Blood Gas Liter Flow 30 L/M Blood Gas Inspired Oxygen 50 % Test 03/16/17 10:06 03/17/17 05:21 White Blood Count 12.1 TH/MM3 10.6 TH/MM3 Red Blood Count 4.51 MIL/MM3 4.10 MIL/MM3 Hemoglobin 12.2 GM/DL 11.5 GM/DL Hematocrit 38.1 % 34.9 % Mean Corpuscular Volume 84.6 FL 84.9 FL Mean Corpuscular Hemoglobin 27.1 PG 27.9 PG Mean Corpuscular Hemoglobin Concent 32.0 % 32.9 % Red Cell Distribution Width 15.1 % 15.0 % Platelet Count 163 TH/MM3 155 TH/MM3 Mean Platelet Volume 8.0 FL 8.5 FL Neutrophils (%) (Auto) 80.2 % 75.4 % Lymphocytes (%) (Auto) 9.3 % 11.8 % Monocytes (%) (Auto) 9.2 % 10.5 % Eosinophils (%) (Auto) 1.1 % 2.0 % Basophils (%) (Auto) 0.2 % 0.3 % Neutrophils # (Auto) 9.7 TH/MM3 8.0 TH/MM3 Lymphocytes # (Auto) 1.1 TH/MM3 1.2 TH/MM3 Monocytes # (Auto) 1.1 TH/MM3 1.1 TH/MM3 Eosinophils # (Auto) 0.1 TH/MM3 0.2 TH/MM3 Basophils # (Auto) 0.0 TH/MM3 0.0 TH/MM3 CBC Comment DIFF FINAL DIFF FINAL Differential Comment Blood Urea Nitrogen 15 MG/DL 21 MG/DL Creatinine 0.95 MG/DL 1.04 MG/DL Random Glucose 127 MG/DL 118 MG/DL Total Protein 6.6 GM/DL 6.3 GM/DL Albumin 3.1 GM/DL 2.7 GM/DL Calcium Level 8.5 MG/DL 8.4 MG/DL Alkaline Phosphatase 79 U/L 72 U/L Aspartate Amino Transf (AST/SGOT) 53 U/L 33 U/L Alanine Aminotransferase (ALT/SGPT) 71 U/L 48 U/L Total Bilirubin 1.0 MG/DL 0.7 MG/DL Sodium Level 135 MEQ/L 133 MEQ/L Potassium Level 4.0 MEQ/L 4.1 MEQ/L Chloride Level 102 MEQ/L 99 MEQ/L Carbon Dioxide Level 28.2 MEQ/L 27.2 MEQ/L Anion Gap 5 MEQ/L 7 MEQ/L Estimat Glomerular Filtration Rate 78 ML/MIN 70 ML/MIN (Dada Roland) Medical Decision Making Impression and Plan Impression: 1. 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 2. Left L2-L3, right L4 transverse process fractures Patient continues to do well, minimal tenderness to back, no neurological deficits. Patient continues to require high flow oxygen due to rib fractures & chest contusion. Plan: Stable for transfer to regular floor from neurosurgery standpoint. No neurosurgical intervention anticipated at this point. May begin Lovenox as indicated. May mobilize out of bed without TLSO brace. (Dada Roland) Attending Statement I have personally seen and examined the patient on 03/17/17. Pertinent documentation and study results have been reviewed by the undersigned. I have personally developed the treatment plan and performed medical decision making. Agree with findings, exam, and treatment plan as noted above. The patient remains with generalized myofascial discomfort today, but no focal deficit on my examination Continue out of bed with therapy. No neurosurgical intervention anticipated at the present time. We will see the patient intermittently while he is in the hospital. (Eddie Guillory MD) Dada Roland Mar 17, 2017 10:03 Eddie Guillory MD Mar 19, 2017 20:50
--- NOTE | 2017-03-17 17:00 | HHI.CCPN ---
Subjective Brief History 71 y.o male fell from a ladder as he was cutting trees-level 2 trauma ,CT scans ordered by the ER.Called by the ER for right ptx-at time of my exam,GCS 15- neuro intact,moving all 4 extremities,left forehead wound with active bleeding, HD normal-no blood thinners-c/o right thoracic pain. Serial rib fractures and right hemopneumothorax, right tube thoracostomy Patient with known COPD and extensive smoking history previously 24 Hour Review/Hospital Course 03/15 CT head-negative in AM gcs 15 CXR stable -no PTX pain well controlled high flow 02-FIO2 40% hgb stable 03/16 GCS 15, pain is well-controlled, FiO2 down to 50% on high flow oxygen ,lungs clear chest x-ray improved, hgb stable 03/17/17 Patient is awake alert and oriented Remains on high flow oxygen in face of COPD pulmonary contusions and poor oxygen exchange Bilateral good breath sounds with relatively reasonable pulmonary expansion Some degree of abdominal distention based on narcotics and constipation as well as splinting due to the chest/rib injuries Chest tube drainage serosanguineous about 200 cc over 24 hours Objective Vital Signs Date Time Temp Pulse Resp B/P (MAP) Pulse Ox O2 Delivery O2 Flow Rate FiO2 03/17/17 09:59 94 High Flow Nasal Cannula 30.00 40 03/17/17 08:00 98.6 83 19 110/61 (77) Intake and Output 03/17/17 03/17/17 03/18/17 08:00 16:00 00:00 Intake Total 600 ml Output Total 430 ml Balance 170 ml Result Diagram: 03/17/17 0521 03/17/17 0521 Imaging Last 24 hours Impressions Chest X-Ray 03/17/17 0600 Signed Impressions: Service Date/Time: Friday, March 17, 2017 04:13 - CONCLUSION: Slight interval worsening in aeration. No pneumothorax Eugenio Gaines MD Exam HVAC TECHNICIAN RESIDENTIAL [place] Coma Scale 15 awake alert oriented Hemodynamic/Cardiac Hemodynamically patient is stable Pulmonary/Respiratory Remains on high flow oxygen in face of COPD pulmonary contusions and poor oxygen exchange Bilateral good breath sounds with relatively reasonable pulmonary expansion Some degree of abdominal distention based on narcotics and constipation as well as splinting due to the chest/rib injuries Chest tube drainage serosanguineous about 200 cc over 24 hours Abdomen/GI Nutrition Abdomen is soft somewhat distended but no injuries in the abdomen Nonetheless the fact the patient has pulmonary injuries and rib fractures is contributing to ileus in face of narcotics use which is elevated both diaphragms and making breathing that more difficult Assessment and Plan Plan Overall stable-continues to improve clinically Continue high flow oxygen-wean to nasal cannula last Start DVT prophylaxis f Out of bed, physical therapy CT to water seal Diet-regular Restart home meds Attestation Patient doing well sitting in chair better PO2 FiO2 gradient on high flow oxygen Will need next few days to equilibrate and once of the high flow oxygen will be able to transfer to the floor probably tomorrow Critical care time 38 minutes Evelin Avalos MD Mar 17, 2017 17:00
--- NOTE | 2017-03-17 18:06 | HHI.CCPN ---
Subjective Remarks/Hospital Course 71 y/o man fell about 10 feet to ground sustaining blunt trauma to head, face, and right torso. Arrived with SOB and required insertion right chest tube for pneumothorax. Multiple right rib fractures. No LOC. 03/15: Hgb without change. Right lung well expanded. Neuro grossly intact. 03/16: Neuro grossly normal. Right lung well expanded. 03/17: Volume loss right side, RLL collapse. Good inspiratory effort, should resolve. Objective Vital Signs Date Time Temp Pulse Resp B/P (MAP) Pulse Ox O2 Delivery O2 Flow Rate FiO2 03/17/17 16:00 95 Blow By 40 03/17/17 16:00 84 03/17/17 09:59 30.00 03/17/17 08:00 98.6 19 110/61 (77) Intake and Output 03/17/17 03/17/17 03/17/17 07:59 15:59 23:59 Intake Total 600 ml Output Total 430 ml Balance 170 ml Result Diagram: 03/17/17 0521 03/17/17520 Objective Remarks Gen: Uncomfortable man, moderate pain. Head: Dry abrasions right forehead and temporal region. Laceration over left eye , clean, dry Neck: Supple. Airway widely patent. Lungs: Minimal crepitus right chest wall. No wheezes, excursions limited by pain. Heart: NL S1S2, RRR, No JVD. Abdomen: Voluntary guarding only, no peritoneal irritation. BS active. Extremities: Well perfused. No angulation. Warm. Neuro: O X 3, alert, speech clear. M/S grossly intact. Up in chair A/P Assessment and Plan Assessment: 1. Fall from height with: a. Frontal lobe contusion, minor. b. Multiple right rib Fxs. c. Right pneumothorax. d. Transverse process fractures lumbar bodies. e. Adrenal bleed and minor liver lac right side. Plan: 1. Chest tube right side to suction. 2. IV analgesia. 3. Swallow evaluation. 4. Pepcid. 5. SCDs. 6. Hold chemical DVT px. 7. Serial Hgb. 8. IS. 9. Neuro checks. Overall impression: Respiratory compromise following fall from height and significant right chest/abdomen trauma. Improved more. Followup head CT without injury. Good progress. Will sign off. Adam Bryant MD Mar 17, 2017 18:06
[2017-03-17] MEDS: MAGNESIUM HYDROXIDE SUSP 30 ML CUP PO SCH (22:18)
[2017-03-18] VITALS (11 sets, daily range): BP systolic 95–146; BP diastolic 65–70; PULSE 74–152; RESP 14–20; TEMP 98.5–100.2; O2SAT 92–96
[2017-03-18] MEDS: ENOXAPARIN SODIUM 30 MG/0.3 ML SYRINGE SQ SCH ×2 (00:05→12:00)
[2017-03-18] MEDS: SODIUM CHLOR 0.9% 1000 ML INJ 1,000 ML IV SCH (00:13)
[2017-03-18] MEDS ORDERED: DILTIAZEM HCL 25 MG/5 ML VIAL IV PUSH ONE ×2 (00:30)
[2017-03-18] MEDS: DILTIAZEM INJ 125 MG in SODIUM CHLORIDE 0.9% INJ 100 ML IV PRN ×3 (00:50→21:00)
[2017-03-18 01:24] LABS: AUTOMATED NEUTROPHIL # 6.9 TH/MM3 (1.8-7.7); BASOPHIL # 0.1 TH/MM3 (0-0.2); BASOPHIL % 0.6 % (0.0-2.0); EOSINOPHIL # 0.3 TH/MM3 (0-0.4); EOSINOPHIL % 3.4 % (0.0-4.0); HEMATOCRIT 36.3 % (39.0-51.0); HEMO FLAGS DIFF FINAL; LYMPH % 11.6 % (9.0-44.0); LYMPHOCYTE # 1.1 TH/MM3 (1.0-4.8); MEAN CORPUSCULAR HEMOGLOBIN 27.2 PG (27.0-34.0); MONO % 8.7 % (0.0-8.0); NEUT % 75.7 % (16.0-70.0); PLATELET COUNT 184 TH/MM3 (150-450); RED BLOOD COUNT 4.28 MIL/MM3 (4.50-5.90); RED CELL DISTRIBUTION WIDTH 14.9 % (11.6-17.2); WHITE BLOOD COUNT 9.1 TH/MM3 (4.0-11.0)
[2017-03-18 01:38] LABS: ALKALINE PHOSPHATASE 72 U/L (45-117); TOTAL BILIRUBIN ADULT 0.7 MG/DL (0.2-1.0)
[2017-03-18 01:39] LABS: ALT (GPT) 40 U/L (12-78); ANION GAP 9 MEQ/L (5-15); AST (GOT) 35 U/L (15-37); BICARBONATE 24.1 MEQ/L (21.0-32.0); BLOOD UREA NITROGEN 25 MG/DL (7-18); CHLORIDE 96 MEQ/L (98-107); GLOMERULAR FILTRATION RATE 76 ML/MIN (>89); MAGNESIUM 2.3 MG/DL (1.5-2.5); POTASSIUM 4.1 MEQ/L (3.5-5.1); SODIUM (NA) 129 MEQ/L (136-145)
[2017-03-18] MEDS: HYDROmorphone HCL PF 1 MG/ML VIAL IV PUSH PRN ×3 (02:30→14:25)
[2017-03-18] MEDS: CHLORHEXIDINE GLUCONATE 2 % 1 PACK (2 CLOTHS) TOP SCH (04:00)
--- NOTE | 2017-03-18 05:51 | RADRPT ---
EXAM DATE/TIME: 03/18/2017 04:45 [facility] COMPARISON: CHEST SINGLE AP, March 17, 2017, 4:13. INDICATIONS : Short of breath. MEDICAL HISTORY : Carcinoma, basal cell. Cardiovascular disease. Hypertension. SURGICAL HISTORY : None. ENCOUNTER: Subsequent ACUITY: 4 - 6 days PAIN SCORE: Non-responsive. LOCATION: Bilateral chest FINDINGS: Right thoracostomy tube is stable in position. No significant pneumothorax. Then slight improvement i n aeration with decrease in confluence of basilar opacities. Cardiac contours are grossly stable. CONCLUSION: Satisfactory chest appearance Eugenio Gaines MD on March 18, 2017 at 5:49 Board Certified Radiologist. This report was verified electronically.
[2017-03-18] MEDS: INSULIN ASPART SUPPLEMENTAL SCALE SQ SCH ×4 (06:00→17:56)
[2017-03-18] MEDS: CYCLOBENZAPRINE HCL 10 MG TAB PO SCH ×3 (06:44→21:01)
[2017-03-18] MEDS: oxyCODONE/ACETAMINOPHEN 10 MG/325 MG TAB PO PRN ×2 (08:02→14:25)
[2017-03-18] MEDS: DOCUSATE SODIUM 50 MG/SENNA 8.6 MG TAB PO SCH ×2 (09:00→21:01)
[2017-03-18] MEDS: LOSARTAN 50 MG TAB PO SCH (09:00)
[2017-03-18] MEDS: PANTOPRAZOLE SOD 40 MG DELAYED RELEASE TAB PO SCH (09:00)
[2017-03-18] MEDS: LIDOCAINE HCL 5% PATCH T-DERMAL SCH ×2 (09:00)
[2017-03-18] MEDS: LACTULOSE SYRUP 20 GM/30 ML CUP PO SCH (09:00)
--- NOTE | 2017-03-18 17:11 | HHI.CCPN ---
Subjective Brief History 71 y.o male fell from a ladder as he was cutting trees-level 2 trauma ,CT scans ordered by the ER.Called by the ER for right ptx-at time of my exam,GCS 15- neuro intact,moving all 4 extremities,left forehead wound with active bleeding, HD normal-no blood thinners-c/o right thoracic pain. Serial rib fractures and right hemopneumothorax, right tube thoracostomy Patient with known COPD and extensive smoking history previously Final injuries Lacerations of the left eyebrow Right sided rib fractures with hemopneumothorax post chest tube placement Very tiny possible liver laceration L2 L3 L4 transverse process laceration as a testimony to the severity of trauma and the force applied sufficient to break of the transverse processes 24 Hour Review/Hospital Course 03/15 CT head-negative in AM gcs 15 CXR stable -no PTX pain well controlled high flow 02-FIO2 40% hgb stable 03/16 GCS 15, pain is well-controlled, FiO2 down to 50% on high flow oxygen ,lungs clear chest x-ray improved, hgb stable 03/17/17 Patient is awake alert and oriented Remains on high flow oxygen in face of COPD pulmonary contusions and poor oxygen exchange Bilateral good breath sounds with relatively reasonable pulmonary expansion Some degree of abdominal distention based on narcotics and constipation as well as splinting due to the chest/rib injuries Chest tube drainage serosanguineous about 200 cc over 24 hours 03/18/17 Patient is awake alert and oriented however starting to get little confused this afternoon Bilateral good breath sounds and actual good pulmonary excursion Chest tube drainage but 350 cc over 24 hours which is serosanguineous Patient spent most of the in chair and is taking good breaths and cooperating with care Patient developed atrial fibrillation with the RVR and was placed on Cardizem drip which is controlling the ray but patient remains in A. fib for the time being Will switch to by mouth medications once a controlled rate rate Abdomen is soft with active bowel sounds Patient can be transferred to floor at this point but I believe he will need some sort of the neuropsychologic intervention in form of some sedation possibly Seroquel Objective Vital Signs Date Time Temp Pulse Resp B/P (MAP) Pulse Ox O2 Delivery O2 Flow Rate FiO2 03/18/17 16:00 100.2 78 14 141/70 (93) 95 03/18/17 11:58 High Flow Nasal Cannula 30.00 50 Intake and Output 10/10/17 10/10/17 10/11/17 08:00 16:00 00:00 Intake Total 480 ml Output Total 300 ml Balance 180 ml Result Diagram: 03/18/17 0054 03/18/17 0054 Imaging Last 24 hours Impressions Chest X-Ray 03/18/17 0600 Signed Impressions: Service Date/Time: Saturday, March 18, 2017 04:45 - CONCLUSION: Satisfactory chest appearance 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 somewhat confused Hemodynamic/Cardiac Hemodynamically stable Pulmonary/Respiratory Bilateral breath sounds About 350 cc of serosanguineous drainage from the right chest tube will give this more time to resolve before taking out the chest tube Abdomen/GI Nutrition Abdomen soft active bowel sounds Assessment and Plan Plan Overall stable-continues to improve clinically Continue high flow oxygen-wean to nasal cannula last Start DVT prophylaxis f Out of bed, physical therapy CT to water seal Diet-regular Restart home meds Attestation Transfer to floor We'll place and Seroquel Out of bed aggressive PT OT Current care time 38 minutes Evelin Avalos MD Mar 18, 2017 17:11
[2017-03-18] MEDS: DILTIAZEM-CD 240 MG CAP ER PO SCH (17:15)
[2017-03-18] MEDS: KETOROLAC TROMETHAMINE 60 MG/2 ML (IM) VIAL IM SCH (17:53)
[2017-03-18] MEDS: MAGNESIUM HYDROXIDE SUSP 30 ML CUP PO SCH (21:00)
[2017-03-18] MEDS: oxyCODONE/ACETAMINOPHEN 5 MG/325 MG TAB PO PRN (21:01)
[2017-03-18] MEDS: QUEtiapine FUMARATE 25 MG TAB PO SCH (21:01)
[2017-03-19] VITALS (9 sets, daily range): BP systolic 98–132; BP diastolic 55–69; PULSE 55–78; RESP 14–17; TEMP 96.7–99.8; O2SAT 88–98
[2017-03-19] MEDS: CHLORHEXIDINE GLUCONATE 2 % 1 PACK (2 CLOTHS) TOP SCH (04:00)
[2017-03-19 04:55] LABS: AUTOMATED NEUTROPHIL # 5.8 TH/MM3 (1.8-7.7); BASOPHIL % 0.6 % (0.0-2.0); EOSINOPHIL # 0.4 TH/MM3 (0-0.4); EOSINOPHIL % 4.9 % (0.0-4.0); HEMATOCRIT 30.4 % (39.0-51.0); HEMO FLAGS DIFF FINAL; LYMPH % 12.5 % (9.0-44.0); MEAN CELL VOLUME 83.4 FL (80.0-100.0); MEAN CORPUSCULAR HEMOGLOBIN 27.1 PG (27.0-34.0); MEAN CORPUSCULAR HGB CONC 32.5 % (32.0-36.0); MONO % 9.8 % (0.0-8.0); NEUT % 72.2 % (16.0-70.0); PLATELET COUNT 185 TH/MM3 (150-450); RED BLOOD COUNT 3.64 MIL/MM3 (4.50-5.90); RED CELL DISTRIBUTION WIDTH 14.5 % (11.6-17.2); WHITE BLOOD COUNT 8.1 TH/MM3 (4.0-11.0)
--- NOTE | 2017-03-19 04:59 | RADRPT ---
EXAM DATE/TIME: 03/19/2017 04:02 [facility] COMPARISON: CHEST SINGLE AP, March 18, 2017, 4:45. INDICATIONS : Shortness of breath. MEDICAL HISTORY : Carcinoma, basal cell. Cardiovascular disease. Hypertension SURGICAL HISTORY : None. ENCOUNTER: Subsequent ACUITY: 1 week PAIN SCORE: Non-responsive. LOCATION: Bilateral chest FINDINGS: Right base thoracostomy tube remains in place. Basilar pleuroparenchymal opacities are roughly unchan ged. Cardiac contours are stable. CONCLUSION: No significant change Eugenio Gaines MD on March 19, 2017 at 4:57 Board Certified Radiologist. This report was verified electronically.
[2017-03-19 05:26] LABS: ANION GAP 8 MEQ/L (5-15); AST (GOT) 19 U/L (15-37); BICARBONATE 27.2 MEQ/L (21.0-32.0); BLOOD UREA NITROGEN 24 MG/DL (7-18); CHLORIDE 94 MEQ/L (98-107); GLOMERULAR FILTRATION RATE 75 ML/MIN (>89); POTASSIUM 3.6 MEQ/L (3.5-5.1); SODIUM (NA) 129 MEQ/L (136-145)
[2017-03-19 05:28] LABS: ALT (GPT) 30 U/L (12-78)
[2017-03-19 05:30] LABS: ALKALINE PHOSPHATASE 60 U/L (45-117); TOTAL BILIRUBIN ADULT 0.5 MG/DL (0.2-1.0)
[2017-03-19] MEDS: CYCLOBENZAPRINE HCL 10 MG TAB PO SCH ×3 (06:00→21:08)
[2017-03-19] MEDS: KETOROLAC TROMETHAMINE 60 MG/2 ML (IM) VIAL IM SCH ×4 (06:00→18:00)
[2017-03-19] MEDS: INSULIN ASPART SUPPLEMENTAL SCALE SQ SCH ×4 (06:00→18:00)
[2017-03-19] MEDS: oxyCODONE/ACETAMINOPHEN 10 MG/325 MG TAB PO PRN (08:00)
[2017-03-19] MEDS: DILTIAZEM-CD 240 MG CAP ER PO SCH (08:45)
[2017-03-19] MEDS: DOCUSATE SODIUM 50 MG/SENNA 8.6 MG TAB PO SCH ×2 (08:45→21:00)
[2017-03-19] MEDS: PANTOPRAZOLE SOD 40 MG DELAYED RELEASE TAB PO SCH (08:45)
[2017-03-19] MEDS: LACTULOSE SYRUP 20 GM/30 ML CUP PO SCH (08:45)
[2017-03-19] MEDS: QUEtiapine FUMARATE 25 MG TAB PO SCH ×2 (08:45→21:08)
[2017-03-19] MEDS: LIDOCAINE HCL 5% PATCH T-DERMAL SCH (08:46)
[2017-03-19] MEDS: LOSARTAN 50 MG TAB PO SCH (09:00)
[2017-03-19] MEDS ORDERED: BISACODYL 10 MG SUPP RECTAL ONE (09:00)
[2017-03-19] MEDS ORDERED: BISACODYL EC 5 MG TABEC PO ONE (09:00)
[2017-03-19] MEDS: SODIUM CHLORIDE 1 GRAM TAB PO SCH ×2 (09:30→21:08)
[2017-03-19] MEDS: ENOXAPARIN SODIUM 30 MG/0.3 ML SYRINGE SQ SCH ×2 (11:59)
--- NOTE | 2017-03-19 12:31 | HHI.CCPN ---
Subjective Brief History 71 y.o male fell from a ladder as he was cutting trees-level 2 trauma ,CT scans ordered by the ER.Called by the ER for right ptx-at time of my exam,GCS 15- neuro intact,moving all 4 extremities,left forehead wound with active bleeding, HD normal-no blood thinners-c/o right thoracic pain. Serial rib fractures and right hemopneumothorax, right tube thoracostomy Patient with known COPD and extensive smoking history previously Final injuries Lacerations of the left eyebrow Right sided rib fractures with hemopneumothorax post chest tube placement Very tiny possible liver laceration L2 L3 L4 transverse process laceration as a testimony to the severity of trauma and the force applied sufficient to break of the transverse processes 24 Hour Review/Hospital Course 03/15 CT head-negative in AM gcs 15 CXR stable -no PTX pain well controlled high flow 02-FIO2 40% hgb stable 03/16 GCS 15, pain is well-controlled, FiO2 down to 50% on high flow oxygen ,lungs clear chest x-ray improved, hgb stable 03/17/17 Patient is awake alert and oriented Remains on high flow oxygen in face of COPD pulmonary contusions and poor oxygen exchange Bilateral good breath sounds with relatively reasonable pulmonary expansion Some degree of abdominal distention based on narcotics and constipation as well as splinting due to the chest/rib injuries Chest tube drainage serosanguineous about 200 cc over 24 hours 03/18/17 Patient is awake alert and oriented however starting to get little confused this afternoon Bilateral good breath sounds and actual good pulmonary excursion Chest tube drainage but 350 cc over 24 hours which is serosanguineous Patient spent most of the in chair and is taking good breaths and cooperating with care Patient developed atrial fibrillation with the RVR and was placed on Cardizem drip which is controlling the ray but patient remains in A. fib for the time being Will switch to by mouth medications once a controlled rate rate Abdomen is soft with active bowel sounds Patient can be transferred to floor at this point but I believe he will need some sort of the neuropsychologic intervention in form of some sedation possibly Seroquel 03/19 Stable during rounds still on high flow oxygen FiO2 50% Had episodes of hallucination overnight-thinks could have been dilaudid He converted spontaneously to sinus rhythm Pain is controlled and IS is about 12 Objective Vital Signs Date Time Temp Pulse Resp B/P (MAP) Pulse Ox O2 Delivery O2 Flow Rate FiO2 03/19/17 12:00 97.8 67 14 98/55 (69) 96 03/19/17 08:42 High Flow Nasal Cannula 25.00 50 Intake and Output 03/19/17 03/19/17 03/20/17 08:00 16:00 00:00 Intake Total 537 ml Output Total 450 ml Balance 87 ml Result Diagram: 03/19/1742303/19/17423 Imaging Last 24 hours Impressions Chest X-Ray 03/19/17 0600 Signed Impressions: Service Date/Time: Sunday, March 19, 2017 04:02 - CONCLUSION: No significant change 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
--- NOTE | 2017-03-19 18:05 | HHI.CCPN ---
Subjective Remarks/Hospital Course 71 y/o man fell about 10 feet to ground sustaining blunt trauma to head, face, and right torso. Arrived with SOB and required insertion right chest tube for pneumothorax. Multiple right rib fractures. No LOC. 03/15: Hgb without change. Right lung well expanded. Neuro grossly intact. 03/16: Neuro grossly normal. Right lung well expanded. 03/17: Volume loss right side, RLL collapse. Good inspiratory effort, should resolve. 03/19: May be developing a peel around to right lung. Discussed with Dr. Cheney ; a Chest CT may guide therapy. Up in chair and taking good breaths. Objective Vital Signs Date Time Temp Pulse Resp B/P (MAP) Pulse Ox O2 Delivery O2 Flow Rate FiO2 03/19/17 16:00 73 03/19/17 16:00 96.7 14 116/60 (78) 98 03/19/17 08:42 High Flow Nasal Cannula 25.00 50 Intake and Output 03/19/17 03/19/17 03/19/17 07:59 15:59 23:59 Intake Total 537 ml Output Total 450 ml Balance 87 ml Result Diagram: 03/19/1742303/19/17423 Objective Remarks Gen: Calm man, moderate pain. Head: Dry abrasions right forehead and temporal region. Laceration over left eye , clean, dry Neck: Supple. Airway widely patent. Lungs: Resolved crepitus right chest wall. No wheezes, excursions limited by pain. Heart: NL S1S2, RRR, No JVD. Abdomen: Soft, no guarding, no peritoneal irritation. BS active. Extremities: Well perfused. No angulation. Warm. Neuro: O X 3, alert, speech clear. M/S grossly intact. Up in chair A/P Assessment and Plan Assessment: 1. Fall from height with: a. Frontal lobe contusion, minor. b. Multiple right rib Fxs. c. Right pneumothorax. d. Transverse process fractures lumbar bodies. e. Adrenal bleed and minor liver lac right side. Plan: 1. Chest tube right side. 2. IV analgesia. 3. Swallow evaluation OK. 4. Pepcid. 5. SCDs. 6. Hold chemical DVT when approved by Trauma Service. 7. Serial Hgb. 8. IS. 9. CT chest to assess right pleural space, possible peel or loculated effusion. Overall impression: Respiratory compromise following fall from height and significant right chest/abdomen trauma. Improved more. Followup head CT without injury. Good progress. Will sign off. Adam Bryant MD Mar 19, 2017 18:05
[2017-03-19] MEDS: MAGNESIUM HYDROXIDE SUSP 30 ML CUP PO SCH (21:00)
[2017-03-20] VITALS (13 sets, daily range): BP systolic 98–141; BP diastolic 59–73; PULSE 66–88; RESP 12–21; TEMP 97.3–99; O2SAT 91–98
[2017-03-20] MEDS: CHLORHEXIDINE GLUCONATE 2 % 1 PACK (2 CLOTHS) TOP SCH (04:00)
[2017-03-20 04:51] LABS: AUTOMATED NEUTROPHIL # 4.8 TH/MM3 (1.8-7.7); BASOPHIL % 0.7 % (0.0-2.0); EOSINOPHIL # 0.5 TH/MM3 (0-0.4); EOSINOPHIL % 7.3 % (0.0-4.0); HEMATOCRIT 31.6 % (39.0-51.0); HEMO FLAGS DIFF FINAL; LYMPH % 12.9 % (9.0-44.0); LYMPHOCYTE # 0.9 TH/MM3 (1.0-4.8); MEAN CELL VOLUME 84.2 FL (80.0-100.0); MEAN CORPUSCULAR HGB CONC 32.1 % (32.0-36.0); MONO % 9.3 % (0.0-8.0); NEUT % 69.8 % (16.0-70.0); PLATELET COUNT 214 TH/MM3 (150-450); RED BLOOD COUNT 3.75 MIL/MM3 (4.50-5.90); RED CELL DISTRIBUTION WIDTH 14.6 % (11.6-17.2); WHITE BLOOD COUNT 6.9 TH/MM3 (4.0-11.0)
[2017-03-20 05:21] LABS: ANION GAP 8 MEQ/L (5-15); AST (GOT) 28 U/L (15-37); BICARBONATE 26.2 MEQ/L (21.0-32.0); BLOOD UREA NITROGEN 22 MG/DL (7-18); CHLORIDE 96 MEQ/L (98-107); GLOMERULAR FILTRATION RATE 75 ML/MIN (>89); POTASSIUM 3.9 MEQ/L (3.5-5.1); SODIUM (NA) 130 MEQ/L (136-145)
[2017-03-20 05:22] LABS: ALT (GPT) 35 U/L (12-78)
[2017-03-20 05:23] LABS: ALKALINE PHOSPHATASE 99 U/L (45-117); TOTAL BILIRUBIN ADULT 0.4 MG/DL (0.2-1.0)
[2017-03-20] MEDS: INSULIN ASPART SUPPLEMENTAL SCALE SQ SCH ×3 (06:00→11:34)
--- NOTE | 2017-03-20 06:05 | RADRPT ---
EXAM DATE/TIME: 03/20/2017 05:01 [facility] COMPARISON: CHEST SINGLE AP, March 19, 2017, 4:02. INDICATIONS : Short of breath. MEDICAL HISTORY : Carcinoma, basal cell. Cardiovascular disease. Hypertension. SURGICAL HISTORY : None. ENCOUNTER: Subsequent ACUITY: 1 week PAIN SCORE: Non-responsive. LOCATION: Bilateral chest FINDINGS: Right thoracostomy tube is stable in position. Aeration continues to improve with decrease in conflue nce of basilar infiltrates. Cardiac contours are grossly stable. CONCLUSION: Improving aeration Eugenio Gaines MD on March 20, 2017 at 6:03 Board Certified Radiologist. This report was verified electronically.
[2017-03-20] MEDS: CYCLOBENZAPRINE HCL 10 MG TAB PO SCH ×3 (06:21→20:42)
[2017-03-20] MEDS: oxyCODONE/ACETAMINOPHEN 10 MG/325 MG TAB PO PRN (06:21)
[2017-03-20] MEDS: KETOROLAC TROMETHAMINE 60 MG/2 ML (IM) VIAL IM SCH ×5 (06:22→22:35)
[2017-03-20] MEDS: LOSARTAN 50 MG TAB PO SCH (08:14)
[2017-03-20] MEDS: SODIUM CHLORIDE 1 GRAM TAB PO SCH ×2 (08:14→20:43)
[2017-03-20] MEDS: PANTOPRAZOLE SOD 40 MG DELAYED RELEASE TAB PO SCH (08:14)
[2017-03-20] MEDS: LIDOCAINE HCL 5% PATCH T-DERMAL SCH (08:14)
[2017-03-20] MEDS: DILTIAZEM-CD 240 MG CAP ER PO SCH (08:14)
[2017-03-20] MEDS: DOCUSATE SODIUM 50 MG/SENNA 8.6 MG TAB PO SCH ×2 (08:32→20:42)
[2017-03-20] MEDS: LACTULOSE SYRUP 20 GM/30 ML CUP PO SCH (08:32)
[2017-03-20] MEDS ORDERED: OXYMETAZOLINE HCL 0.05% 15 ML NASAL SPRAY NASAL PRN (10:00)
--- NOTE | 2017-03-20 11:12 | PD.CONS ---
HPI Service Rehabilitation Medicine Consult Requested By [facility] Trauma Service Reason for Consult Comprehensive rehabilitation evaluation. Primary Care Physician Unknown History of Present Illness Garo Virgen is a 71-year-old right-hand dominant male admitted [facility] 03/14/17 after fall from a ladder while cutting trees. [place] coma scale was 15. Initial head CT showed questionable hemorrhage in the frontal extra-axial space bilaterally but follow-up head CT 03/15/17 was negative for acute intracranial abnormality. Chest CT showed large right pneumothorax with consolidative changes throughout the right lung, multiple right rib fractures, right adrenal hemorrhage and tiny right hemothorax. Chest tube was placed which is currently on water seal. He was also noted to have left L2/L3/L4 transverse process fractures. He is receiving high flow blow-by oxygen per nasal cannula. Review of Systems Constitutional: COMPLAINS OF: Fatigue Eyes: DENIES: Diplopia Ears, nose, mouth, throat: DENIES: Throat pain Respiratory: COMPLAINS OF: Shortness of breath Cardiovascular: COMPLAINS OF: Chest pain (In area of rib fractures) Gastrointestinal: COMPLAINS OF: Constipation Genitourinary: DENIES: Urinary incontinence Integumentary: DENIES: Pruritus Hematologic/lymphatic: COMPLAINS OF: Bruising Immunologic/allergic: DENIES: Urticaria Neurologic: COMPLAINS OF: Headache (Mild), DENIES: Localized weakness, Paresthesias Psychiatric: DENIES: Confusion Past Family Social History Allergies: Coded Allergies: No Known Allergies (Unverified , 03/14/17) Past Medical History Hypertension Past Surgical History None Current Medications Current Medications Medications (Trade) Dose Ordered Sig/Reymundo Route Start Time Stop Time Status Last Admin (Zofran Inj) 4 mg Q6H PRN IV PUSH 03/14/17 14:30 Miscellaneous Information 1 Q361D XX 03/14/17 14:30 (Chlorhexidine 2% Cloth) Taper DAILY@04 TOP 03/15/17 04:00 03/11/18 03:59 (Chlorhexidine 2% Cloth) 3 pack UNSCH PRN TOP 03/14/17 14:30 (Rose-Colace) 1 tab BID PO 03/14/17 21:00 03/19/17 08:45 (Flexeril) 5 mg Q8HR PO 03/14/17 15:00 03/20/17 06:21 (Protonix) 40 mg DAILY PO 03/14/17 21:30 03/20/17 08:14 (Percocet 5-325 Mg) 1 tab Q4H PRN PO 03/15/17 08:15 03/18/17 21:01 (Percocet 10-325 Mg) 1 tab Q4H PRN PO 03/15/17 08:15 03/20/17 06:21 (Lidoderm 5% Patch.12 Hr) 1 patch DAILY T-DERMAL 03/15/17 09:00 03/20/17 08:14 (Milk Of Magnesia Liq) 30 ml HS PO 03/15/17 21:00 03/18/17 21:00 (Lactulose Liq) 30 ml DAILY PO 03/16/17 09:00 03/19/17 08:45 (NovoLOG SUPPLEMENTAL SCALE) 1 Q6HR SQ 03/16/17 12:00 03/19/17 11:59 (D50w (Syr) Inj) 50 ml UNSCH PRN IV PUSH 03/16/17 11:30 (Glucagon Inj) 1 mg UNSCH PRN OTHER 03/16/17 11:30 (Norvasc) 10 mg DAILY PO 03/16/17 11:30 03/20/17 08:14 (Cozaar) 100 mg DAILY PO 03/16/17 11:30 03/20/17 08:14 (Lovenox Inj) 30 mg Q12H SQ 03/16/17 12:00 03/20/17 00:00 (Cardizem Cd) 240 mg DAILY PO 03/18/17 17:15 03/20/17 08:14 (Toradol Inj) 15 mg Q6HR IM 03/18/17 18:00 03/23/17 17:59 03/20/17 06:22 (SEROquel) 50 mg HS PO 03/19/17 21:00 03/19/17 21:08 (Sodium Chloride) 1 gm BID PO 03/19/17 09:30 03/20/17 08:14 (Afrin 0.05% Vinicius [place]) 2 spray Q12H PRN NASAL 03/20/17 10:00 Family History Mother: : thyroid and breast CA Father: , CHF Social History 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 Independent with mobility and ADL's prior to admission. Lives in [place] with in one level home. No steps to enter. Exam I&O / VS Vital Signs Date Time Temp Pulse Resp B/P (MAP) Pulse Ox O2 Delivery O2 Flow Rate FiO2 03/20/17 10:51 96 High Flow Nasal Cannula 20.00 35 03/20/17 10:00 94 Blow By 40 03/20/17 10:00 81 03/20/17 08:00 67 03/20/17 08:00 95 Blow By 40 03/20/17 07:49 94 High Flow Nasal Cannula 25.00 40 03/20/17 07:25 12 03/20/17 07:25 12 03/20/17 06:00 96 Blow By 40 03/20/17 04:00 96 Blow By 40 03/20/17 04:00 98.0 66 15 98/60 (73) 98 03/20/17 02:00 96 Blow By 40 03/20/17 00:00 99.0 88 16 141/73 (95) 91 03/20/17 00:00 96 Blow By 40 03/19/17 23:00 55 03/19/17 22:00 96 Blow By 40 03/19/17 20:44 96 High Flow Nasal Cannula 25.00 50 03/19/17 20:00 99.2 78 17 127/66 (86) 97 03/19/17 20:00 96 Blow By 40 03/19/17 18:50 96 Blow By 40 03/19/17 16:00 73 03/19/17 16:00 96.7 73 14 116/60 (78) 98 03/19/17 12:00 97.8 67 14 98/55 (69) 96 03/19/17 12:00 67 General: No acute distress, Other (Sitting up in bdeside chair with NC O2 in place) Respiratory: Coarse breath sounds Gastrointestinal: Positive Bowel Sounds, Distended (Depressible, soft), Non- Tender Cardiovascular: Normal rate, Regular Rhythm Skin: Other (No rash noted) Musculoskeletal: Swelling (None in distal LE) Psychiatric: Cooperative, Appropriate mood & affect Orientation: oriented to Self, oriented to Place, oriented to Situation Neurologic: Pupils (PERRLA), EOM (Intact), Facial Symmetry (Symmetric), Speech (Clear) Motor: Right Upper Extremity (5/5), Left Upper Extremity (5/5), Right Lower Extremity (5/5), Left Lower Extremity (5/5) Sensory Intact to light touch in UE and LE Clonus: Negative Balance: Sitting (Sitting balance good up in bedside chair.) Assessment and Plan Diagnosis: (1) Fall ICD Codes: W19.XXXA - Unspecified fall, initial encounter (2) Pneumothorax ICD Codes: J93.9 - Pneumothorax, unspecified Qualifiers: Qualified Codes: S27.0XXA - Traumatic pneumothorax, initial encounter Assessment 1. Fall from ladder while cutting trees 03/14/17 with right pneumothorax status post chest tube placement, multiple right rib fractures, right adrenal hematoma and left L2/L3/L4 transverse process fractures 2. Impaired mobility and ADLs due to above 3. Hypertension Plan 1. PT mobilizing and min-CG for transfer and gait 10 feet with rolling walker. Continue to mobilize as tolerated with focus on endurance. 2. Occupational therapy for ADL evaluation including equipment 3. Will follow regarding rehab needs while hospitalized and at discharge as appropriate in conjunction with case management 4. Will follow-up hospitalized and at discharge as appropriate Thank you for this consult Yoli Huffman MD Mar 20, 2017 11:12
[2017-03-20] MEDS: ENOXAPARIN SODIUM 30 MG/0.3 ML SYRINGE SQ SCH ×3 (11:43→22:35)
--- NOTE | 2017-03-20 13:40 | HHI.CCPN ---
Subjective Brief History 71 y.o male fell from a ladder as he was cutting trees-level 2 trauma ,CT scans ordered by the ER.Called by the ER for right ptx-at time of my exam,GCS 15- neuro intact,moving all 4 extremities,left forehead wound with active bleeding, HD normal-no blood thinners-c/o right thoracic pain. Serial rib fractures and right hemopneumothorax, right tube thoracostomy Patient with known COPD and extensive smoking history previously Final injuries Lacerations of the left eyebrow Right sided rib fractures with hemopneumothorax post chest tube placement Very tiny possible liver laceration L2 L3 L4 transverse process laceration as a testimony to the severity of trauma and the force applied sufficient to break of the transverse processes 24 Hour Review/Hospital Course 03/15 CT head-negative in AM gcs 15 CXR stable -no PTX pain well controlled high flow 02-FIO2 40% hgb stable 03/16 GCS 15, pain is well-controlled, FiO2 down to 50% on high flow oxygen ,lungs clear chest x-ray improved, hgb stable 03/17/17 Patient is awake alert and oriented Remains on high flow oxygen in face of COPD pulmonary contusions and poor oxygen exchange Bilateral good breath sounds with relatively reasonable pulmonary expansion Some degree of abdominal distention based on narcotics and constipation as well as splinting due to the chest/rib injuries Chest tube drainage serosanguineous about 200 cc over 24 hours 03/18/17 Patient is awake alert and oriented however starting to get little confused this afternoon Bilateral good breath sounds and actual good pulmonary excursion Chest tube drainage but 350 cc over 24 hours which is serosanguineous Patient spent most of the in chair and is taking good breaths and cooperating with care Patient developed atrial fibrillation with the RVR and was placed on Cardizem drip which is controlling the ray but patient remains in A. fib for the time being Will switch to by mouth medications once a controlled rate rate Abdomen is soft with active bowel sounds Patient can be transferred to floor at this point but I believe he will need some sort of the neuropsychologic intervention in form of some sedation possibly Seroquel 03/19 Stable during rounds still on high flow oxygen FiO2 50% Had episodes of hallucination overnight-thinks could have been dilaudid He converted spontaneously to sinus rhythm Pain is controlled and IS is about 12 03/20 FiO2 down to 40% Continues to be a sinus rhythm I S improving, chest x-rays improving Lungs clear CT on waterseal Objective Vital Signs Date Time Temp Pulse Resp B/P (MAP) Pulse Ox O2 Delivery O2 Flow Rate FiO2 03/20/17 12:00 95 Blow By 20.00 35 03/20/17 12:00 98.4 78 18 108/59 (75) Intake and Output 03/20/17 03/20/17 03/21/17 08:00 16:00 00:00 Intake Total 960 ml Output Total 1020 ml Balance -60 ml Result Diagram: 03/20/1740703/20/17407 Imaging Last 24 hours Impressions Chest X-Ray 03/20/17 0600 Signed Impressions: Service Date/Time: March 05:01 - CONCLUSION: Improving aeration Eugenio Gaines MD Exam [employer] GCS 15 Hemodynamic/Cardiac sTable Pulmonary/Respiratory High flow oxygen Abdomen/GI Nutrition Soft Urinary Catheter Assessment Urinary Catheter: No Vascular Central Line Catheter Vascular Central Line Catheter: No Assessment and Plan Plan Overall stable-continues to improve clinically Continue high flow oxygen-wean to nasal cannula last DVT prophylaxis Out of bed, physical therapy CT to water seal Diet-regular oral Jennifer Nguyen MD Mar 20, 2017 13:40
--- NOTE | 2017-03-20 16:12 | HHI.NSPN ---
(Dada Roland) History Chief Complaint: Right-sided chest wall pain (Dada Roland) Interval History 71-year-old male fell off of a ladder while cutting down a tree, no loss of consciousness. Positive pneumothorax status post chest tube. Initial CT scan head with probable small bifrontal parafalcine subdural hematoma. CT scan of the spine with rather prominent cervical degenerative changes but no acute fracture. Positive left L2, L3, right L4 transverse process fractures 03/17: The patient is asleep but awakens to voice. After that he is awake and readily interacts. He states that it is "a mixed bag" when asked how he feels today. He reports that his pain is better today and that he has pain to the right anterolateral chest wall/ribs. He states he really doesn't have pain to the back. He does have some abdominal pain secondary to not having a bowel movement. He does endorse shortness of breath do to the rib fractures. 04/20: The patient is sitting up in a chair when seen this afternoon and states he is doing "pretty good." He has some right-sided chest wall/rib pain with associated shortness of breath, both are better. (Dada Roland) System Review Comments Constitutional: Patient denies any fever or chills. HEENT: Patient denies any visual or hearing difficulty. Respiratory: Patient does have shortness of breath secondary to rib fractures. He denies any wheezing or productive cough. Cardiovascular: Patient with right-sided chest wall/rib pain. He denies any other chest pain, palpitations or irregular heartbeat. Gastrointestinal: Patient has denies any abdominal pain, nausea, vomiting or incontinence of stool. Genitourinary: Patient denies any incontinence of urine. Musculoskeletal: Patient complains of right-sided chest wall/rib pain. He denies any pain to the neck, back or extremities. Neurologic: Patient does have some dizziness which he contributes to medications. He denies any headache, numbness, tingling or weakness. (Dada Roland) Exam Results 03/18/17 03/18/17 03/19/17 03/19/17 03/20/17 03/20/17 06:00 18:00 06:00 18:00 06:00 18:00 Intake Total 480 ml 1720 ml 737 ml 1800 ml 1080 ml Output Total 300 ml 1085 ml 450 ml 970 ml 1220 ml Balance 180 ml 635 ml 287 ml 830 ml -140 ml Intake Oral 480 ml 1400 ml 680 ml 1800 ml 1080 ml IV Total 320 ml 57 ml Output Urine Total 875 ml 450 ml 600 ml 1150 ml Chest Tube Drainage Total 300 ml 210 ml 370 ml 70 ml # Voids 4 4 3 6 1 # Bowel Movements 0 0 0 3 1 Vital Signs Date Time Temp Pulse Resp B/P (MAP) Pulse Ox O2 Delivery O2 Flow Rate FiO2 03/20/17 14:00 97 Nasal Cannula 5.00 03/20/17 14:00 75 03/20/17 12:00 95 Blow By 20.00 35 03/20/17 12:00 98.4 78 18 108/59 (75) 95 03/20/17 12:00 81 03/20/17 10:51 96 High Flow Nasal Cannula 20.00 35 03/20/17 10:00 94 Blow By 25.00 40 03/20/17 10:00 81 03/20/17 08:00 67 03/20/17 08:00 95 Blow By 25.00 40 03/20/17 08:00 97.3 68 12 112/67 (82) 95 03/20/17 07:49 94 High Flow Nasal Cannula 25.00 40 03/20/17 07:25 12 03/20/17 07:25 12 03/20/17 06:00 96 Blow By 40 03/20/17 04:00 96 Blow By 40 03/20/17 04:00 98.0 66 15 98/60 (73) 98 03/20/17 02:00 96 Blow By 40 03/20/17 00:00 99.0 88 16 141/73 (95) 91 03/20/17 00:00 96 Blow By 40 03/19/17 23:00 55 03/19/17 22:00 96 Blow By 40 03/19/17 20:44 96 High Flow Nasal Cannula 25.00 50 03/19/17 20:00 99.2 78 17 127/66 (86) 97 03/19/17 20:00 96 Blow By 40 03/19/17 18:50 96 Blow By 40 03/19/17 16:00 73 03/19/17 16:00 96.7 73 14 116/60 (78) 98 03/19/17 12:00 97.8 67 14 98/55 (69) 96 03/19/17 12:00 67 03/19/17 08:42 93 High Flow Nasal Cannula 25.00 50 03/19/17 08:00 57 03/19/17 08:00 97 Blow By 50 03/19/17 08:00 98.6 57 16 132/68 (89) 97 03/19/17 06:00 93 Blow By 25 03/19/17 04:00 93 Blow By 25 03/19/17 04:00 99.0 58 17 98/55 (69) 90 03/19/17 02:00 93 Blow By 25 03/19/17 00:00 93 Blow By 25 03/19/17 00:00 99.8 74 17 116/69 (85) 88 03/18/17 23:00 74 03/18/17 22:01 17 03/18/17 22:00 93 Blow By 25 03/18/17 21:50 96 High Flow Nasal Cannula 20.00 50 03/18/17 21:00 80 132/67 03/18/17 20:00 93 Blow By 25 03/18/17 20:00 99.0 86 20 128/70 (89) 93 03/18/17 19:00 93 Blow By 25 03/18/17 17:00 96 Blow By 25 03/18/17 17:00 77 119/60 03/18/17 16:00 100.2 78 14 141/70 (93) 95 03/18/17 16:00 78 03/18/17 15:00 94 Blow By 30 03/18/17 14:55 14 03/18/17 13:40 78 119/60 03/18/17 12:00 99.1 113 16 95/65 (75) 93 03/18/17 11:58 93 High Flow Nasal Cannula 30.00 50 03/18/17 10:15 112 102/60 03/18/17 08:00 98.5 105 14 118/65 (82) 93 03/18/17 08:00 93 Blow By 60 03/18/17 08:00 105 03/18/17 06:00 98 Blow By 60 03/18/17 06:00 140 03/18/17 04:00 116 03/18/17 04:00 94 Blow By 60 03/18/17 04:00 98.9 116 16 100/68 (79) 94 03/18/17 02:00 93 Blow By 60 03/18/17 02:00 140 03/18/17 00:50 154 146/66 03/18/17 00:00 92 Blow By 60 03/18/17 00:00 152 03/18/17 00:00 99.1 152 20 146/66 (92) 92 03/17/17 22:00 84 03/17/17 22:00 98 Blow By 60 03/17/17 20:38 94 High Flow Nasal Cannula 30.00 40 03/17/17 20:00 86 03/17/17 20:00 92 Blow By 40 03/17/17 20:00 98.5 86 16 121/81 (94) 92 03/17/17 18:00 92 03/17/17 18:00 97 Blow By 40 (Dada Roland) Physical Examination GENERAL: The patient is awake & alert, he readily interacts, his affect is normal, no apparent distress. SKIN: Scattered abrasions & ecchymosis to the face & extremities. HEENT: Normocephalic, left supraorbital laceration mildly TTP approximated w/ sutures, facial abrasions & ecchymosis. NECK: Midline cervical spine NTTP, no pain w/active ROM, no JVD, trachea midline. CARDIOVASCULAR: S1S2 w/RRR w/o M/G/R, radial & pedal pulses 2+ bilaterally, cap refill < 2 sec, 1+ edema to dependent extremities. Monitor is sinus rhythm w/o any ectopy noted. RESPIRATORY: Right anterolateral chest wall TTP, CTAB but diminished throughout w/o W/R/R, equal excursion, nonlaboured, on NC, tube thoracotomy to water seal w /serosanguinous drainage in tubing. GASTROINTESTINAL: Abdomen rotund, soft, nontender, positive bowel sounds. MUSCULOSKELETAL: CALZADA w/o difficulty, no evident deformity or clubbing. Midline thoracolumbar spine NTTP, mildly TTP to the left paraspinals. NEUROLOGICAL: AAOx3. Speech clear & appropriate. Follows simple commands w/o difficulty. Sensation intact to light touch to all extremities. Motor strength 5/5 to all major flexion & extension muscle groups. (Dada Roland) Lab, Micro, Other Results Recent Impressions Chest X-Ray 03/20/17599 Signed Impressions: Service Date/Time: March 05:01 - CONCLUSION: Improving aeration Eugenio Gaines MD Chest X-Ray 03/19/17599 Signed Impressions: Service Date/Time: Sunday, March 19, 2017 04:02 - CONCLUSION: No significant change Eugenio Gaines MD Chest X-Ray 03/18/17599 Signed Impressions: Service Date/Time: Saturday, March 18, 2017 04:45 - CONCLUSION: Satisfactory chest appearance Eugenio Gaines MD Laboratory Tests Test 03/18/17 00:54 03/19/17 04:24 03/20/17 04:08 White Blood Count 9.1 TH/MM3 8.1 TH/MM3 6.9 TH/MM3 Red Blood Count 4.28 MIL/MM3 3.64 MIL/MM3 3.75 MIL/MM3 Hemoglobin 11.6 GM/DL 9.9 GM/DL 10.1 GM/DL Hematocrit 36.3 % 30.4 % 31.6 % Mean Corpuscular Volume 85.0 FL 83.4 FL 84.2 FL Mean Corpuscular Hemoglobin 27.2 PG 27.1 PG 27.0 PG Mean Corpuscular Hemoglobin Concent 32.0 % 32.5 % 32.1 % Red Cell Distribution Width 14.9 % 14.5 % 14.6 % Platelet Count 184 TH/MM3 185 TH/MM3 214 TH/MM3 Mean Platelet Volume 8.2 FL 7.9 FL 7.8 FL Neutrophils (%) (Auto) 75.7 % 72.2 % 69.8 % Lymphocytes (%) (Auto) 11.6 % 12.5 % 12.9 % Monocytes (%) (Auto) 8.7 % 9.8 % 9.3 % Eosinophils (%) (Auto) 3.4 % 4.9 % 7.3 % Basophils (%) (Auto) 0.6 % 0.6 % 0.7 % Neutrophils # (Auto) 6.9 TH/MM3 5.8 TH/MM3 4.8 TH/MM3 Lymphocytes # (Auto) 1.1 TH/MM3 1.0 TH/MM3 0.9 TH/MM3 Monocytes # (Auto) 0.8 TH/MM3 0.8 TH/MM3 0.6 TH/MM3 Eosinophils # (Auto) 0.3 TH/MM3 0.4 TH/MM3 0.5 TH/MM3 Basophils # (Auto) 0.1 TH/MM3 0.0 TH/MM3 0.0 TH/MM3 CBC Comment DIFF FINAL DIFF FINAL DIFF FINAL Differential Comment Blood Urea Nitrogen 25 MG/DL 24 MG/DL 22 MG/DL Creatinine 0.97 MG/DL 0.99 MG/DL 0.99 MG/DL Random Glucose 128 MG/DL 131 MG/DL 114 MG/DL Total Protein 6.2 GM/DL 5.4 GM/DL 5.7 GM/DL Albumin 2.5 GM/DL 2.2 GM/DL 2.3 GM/DL Calcium Level 8.5 MG/DL 8.5 MG/DL 8.3 MG/DL Phosphorus Level 3.3 MG/DL Magnesium Level 2.3 MG/DL Alkaline Phosphatase 72 U/L 60 U/L 99 U/L Aspartate Amino Transf (AST/SGOT) 35 U/L 19 U/L 28 U/L Alanine Aminotransferase (ALT/SGPT) 40 U/L 30 U/L 35 U/L Total Bilirubin 0.7 MG/DL 0.5 MG/DL 0.4 MG/DL Sodium Level 129 MEQ/L 129 MEQ/L 130 MEQ/L Potassium Level 4.1 MEQ/L 3.6 MEQ/L 3.9 MEQ/L Chloride Level 96 MEQ/L 94 MEQ/L 96 MEQ/L Carbon Dioxide Level 24.1 MEQ/L 27.2 MEQ/L 26.2 MEQ/L Anion Gap 9 MEQ/L 8 MEQ/L 8 MEQ/L Estimat Glomerular Filtration Rate 76 ML/MIN 75 ML/MIN 75 ML/MIN (Dada Roland) Medical Decision Making Impression and Plan Impression: 1. 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 2. Left L2-L3, right L4 transverse process fractures Patient is doing well, minimal tenderness to left lumbar paraspinals, no neurological deficits. Patient with improved respiratory effort. Plan: Stable for transfer to regular floor from neurosurgery standpoint. No neurosurgical intervention indicated. May begin Lovenox as indicated. Mobilize out of bed without TLSO brace. Will follow intermittently. (Dada Roland) Attending Statement I have personally seen and examined the patient on the date of this note. Pertinent documentation and study results have been reviewed by the undersigned. I have personally developed the treatment plan and performed medical decision making. Agree with findings, exam, and treatment plan as noted above. On my examination today the patient has a right chest tube in place. Left periorbital edema and ecchymosis continues to improve. Respirations to auscultation reveal coarse upper airway sounds. He complains of persistent chest pain with deep breath. His neurologic exam remains normal, nonfocal. Discussed with patient. He continues to mobilize out of bed as tolerated. Continue symptomatic treatment for lumbar transverse process fractures. May use Lovenox for DVT prophylaxis. His follow-up CT scan revealed no significant residual hemorrhage. (Eddie Guillory MD) Dada Roland Mar 20, 2017 16:12 Eddie Guillory MD Mar 20, 2017 21:38
[2017-03-20] MEDS: metFORMIN HCL 500 MG TAB PO SCH (17:06)
[2017-03-20] MEDS: MAGNESIUM HYDROXIDE SUSP 30 ML CUP PO SCH (20:43)
[2017-03-20] MEDS: QUEtiapine FUMARATE 25 MG TAB PO SCH (20:43)
[2017-03-21] VITALS (10 sets, daily range): BP systolic 102–125; BP diastolic 56–64; PULSE 66–82; RESP 18–22; TEMP 97.2–98.9; O2SAT 93–97
--- NOTE | 2017-03-21 03:12 | RADRPT ---
EXAM DATE/TIME: 03/21/2017 01:53 [facility] COMPARISON: CHEST SINGLE AP, March 20, 2017, 5:01. INDICATIONS : Evaluate pneumothorax post trauma- fall from ladder MEDICAL HISTORY : Carcinoma, basal cell. Cardiovascular disease. Hypertension. SURGICAL HISTORY : None. ENCOUNTER: Subsequent ACUITY: 1 week PAIN SCORE: 8/10 LOCATION: Bilateral chest FINDINGS: Right chest tube unchanged. Small right apical pneumothorax is stable. Mild basilar atelectasis. Mult iple right rib fractures noted with persistent pleural thickening or trace loculated fluid. Heart siz e within normal limits. CONCLUSION: 1. Right chest tube with small right apical pneumothorax, unchanged. Multiple right rib fractures. Ba silar atelectasis. Darrius Fraire MD on March 21, 2017 at 3:09 Board Certified Radiologist. This report was verified electronically.
[2017-03-21] MEDS: CHLORHEXIDINE GLUCONATE 2 % 1 PACK (2 CLOTHS) TOP SCH (04:00)
[2017-03-21] MEDS: CYCLOBENZAPRINE HCL 10 MG TAB PO SCH ×3 (04:34→21:36)
[2017-03-21] MEDS: KETOROLAC TROMETHAMINE 60 MG/2 ML (IM) VIAL IM SCH (04:35)
[2017-03-21 05:52] LABS: AUTOMATED NEUTROPHIL # 3.9 TH/MM3 (1.8-7.7); BASOPHIL % 0.7 % (0.0-2.0); EOSINOPHIL # 0.6 TH/MM3 (0-0.4); EOSINOPHIL % 9.4 % (0.0-4.0); HEMATOCRIT 32.7 % (39.0-51.0); HEMO FLAGS DIFF FINAL; LYMPH % 15.6 % (9.0-44.0); LYMPHOCYTE # 0.9 TH/MM3 (1.0-4.8); MEAN CELL VOLUME 83.9 FL (80.0-100.0); MEAN CORPUSCULAR HEMOGLOBIN 27.2 PG (27.0-34.0); MEAN CORPUSCULAR HGB CONC 32.4 % (32.0-36.0); NEUT % 64.3 % (16.0-70.0); PLATELET COUNT 250 TH/MM3 (150-450); RED BLOOD COUNT 3.89 MIL/MM3 (4.50-5.90); RED CELL DISTRIBUTION WIDTH 14.4 % (11.6-17.2)
[2017-03-21 07:40] LABS: ALKALINE PHOSPHATASE 71 U/L (45-117); ALT (GPT) 63 U/L (12-78); AST (GOT) 62 U/L (15-37); BLOOD UREA NITROGEN 21 MG/DL (7-18); GLOMERULAR FILTRATION RATE 74 ML/MIN (>89)
[2017-03-21 07:41] LABS: ANION GAP 9 MEQ/L (5-15); BICARBONATE 27.2 MEQ/L (21.0-32.0); CHLORIDE 100 MEQ/L (98-107); POTASSIUM 3.9 MEQ/L (3.5-5.1); SODIUM (NA) 136 MEQ/L (136-145); TOTAL BILIRUBIN ADULT 0.4 MG/DL (0.2-1.0)
[2017-03-21] MEDS ORDERED: WALKER WHEELS/F1 MIS (07:44)
[2017-03-21] MEDS: oxyCODONE/ACETAMINOPHEN 10 MG/325 MG TAB PO PRN ×2 (08:00→17:49)
[2017-03-21] MEDS: SODIUM CHLORIDE 1 GRAM TAB PO SCH ×2 (08:02→21:36)
[2017-03-21] MEDS: DILTIAZEM-CD 240 MG CAP ER PO SCH (08:02)
[2017-03-21] MEDS: metFORMIN HCL 500 MG TAB PO SCH ×2 (08:02→17:49)
[2017-03-21] MEDS: DOCUSATE SODIUM 50 MG/SENNA 8.6 MG TAB PO SCH ×2 (08:02→21:36)
[2017-03-21] MEDS: LOSARTAN 50 MG TAB PO SCH (08:03)
[2017-03-21] MEDS: PANTOPRAZOLE SOD 40 MG DELAYED RELEASE TAB PO SCH (08:03)
[2017-03-21] MEDS: LACTULOSE SYRUP 20 GM/30 ML CUP PO SCH (08:03)
[2017-03-21] MEDS: LIDOCAINE HCL 5% PATCH T-DERMAL SCH (08:03)
--- NOTE | 2017-03-21 09:24 | HHI.NSPN ---
(Dada Roland) History Chief Complaint: Right-sided chest wall pain (Dada Roland) Interval History 71-year-old male fell off of a ladder while cutting down a tree, no loss of consciousness. Positive pneumothorax status post chest tube. Initial CT scan head with probable small bifrontal parafalcine subdural hematoma. CT scan of the spine with rather prominent cervical degenerative changes but no acute fracture. Positive left L2, L3, right L4 transverse process fractures 03/17: The patient is asleep but awakens to voice. After that he is awake and readily interacts. He states that it is "a mixed bag" when asked how he feels today. He reports that his pain is better today and that he has pain to the right anterolateral chest wall/ribs. He states he really doesn't have pain to the back. He does have some abdominal pain secondary to not having a bowel movement. He does endorse shortness of breath do to the rib fractures. 04/20: The patient is sitting up in a chair when seen this afternoon and states he is doing "pretty good." He has some right-sided chest wall/rib pain with associated shortness of breath, both are better. 04/21: This morning the patient is seen in rounds with Dr Guillory. He is sitting up in the chair watching TV. The patient does have pain to the right side of the chest wall. He denies any headache or back pain. The undersigned acts as a scribe for the remainder of this note. (Dada Roland) System Review Comments The patient denies any headache, back pain, numbness, tingling or shortness of breath. He does have pain to the right chest wall. (Dada Roland) Exam Results 03/19/17 03/19/17 03/20/17 03/20/17 03/21/17 03/21/17 06:00 18:00 06:00 18:00 06:00 18:00 Intake Total 737 ml 1800 ml 1080 ml 1340 ml 680 ml Output Total 450 ml 970 ml 1220 ml 1425 ml 1500 ml Balance 287 ml 830 ml -140 ml -85 ml -820 ml Intake Oral 680 ml 1800 ml 1080 ml 1340 ml 680 ml IV Total 57 ml Output Urine Total 450 ml 600 ml 1150 ml 1275 ml 1450 ml Chest Tube Drainage Total 370 ml 70 ml 150 ml 50 ml # Voids 3 6 1 # Bowel Movements 0 3 1 0 0 Vital Signs Date Time Temp Pulse Resp B/P (MAP) Pulse Ox O2 Delivery O2 Flow Rate FiO2 03/21/17 09:00 12 03/21/17 08:00 79 03/21/17 08:00 98.1 76 19 118/64 (82) 94 03/21/17 08:00 96 Nasal Cannula 2.00 Humidified 03/21/17 06:00 66 03/21/17 04:00 66 03/21/17 04:00 97.6 66 18 102/56 (71) 96 03/21/17 04:00 96 Nasal Cannula 4.00 Humidified 03/21/17 03:17 97 Nasal Cannula 3.00 03/21/17 02:00 68 03/21/17 00:00 96 Nasal Cannula 4.00 Humidified 03/21/17 00:00 70 03/21/17 00:00 97.9 70 20 113/59 (77) 95 03/20/17 23:48 96 Nasal Cannula 3.00 03/20/17 22:00 81 03/20/17 20:00 96 Nasal Cannula 4.00 Humidified 03/20/17 20:00 80 03/20/17 20:00 98.1 80 21 108/62 (77) 96 03/20/17 19:00 96 Nasal Cannula 4.00 Humidified 03/20/17 18:20 96 Nasal Cannula 3.00 Humidified 03/20/17 18:00 96 Nasal Cannula 4.00 Humidified 03/20/17 18:00 82 03/20/17 17:27 97 Nasal Cannula 4.00 Humidified 03/20/17 16:00 98.0 79 21 107/60 (76) 96 03/20/17 16:00 79 03/20/17 16:00 96 Nasal Cannula 5.00 Humidified 03/20/17 14:00 97 Nasal Cannula 5.00 03/20/17 14:00 75 03/20/17 12:00 95 Blow By 20.00 35 03/20/17 12:00 98.4 78 18 108/59 (75) 95 03/20/17 12:00 81 03/20/17 10:51 96 High Flow Nasal Cannula 20.00 35 03/20/17 10:00 94 Blow By 25.00 40 03/20/17 10:00 81 03/20/17 08:00 67 03/20/17 08:00 95 Blow By 25.00 40 03/20/17 08:00 97.3 68 12 112/67 (82) 95 03/20/17 07:49 94 High Flow Nasal Cannula 25.00 40 03/20/17 07:25 12 03/20/17 06:00 96 Blow By 40 03/20/17 04:00 96 Blow By 40 03/20/17 04:00 98.0 66 15 98/60 (73) 98 03/20/17 02:00 96 Blow By 40 03/20/17 00:00 99.0 88 16 141/73 (95) 91 03/20/17 00:00 96 Blow By 40 03/19/17 23:00 55 03/19/17 22:00 96 Blow By 40 03/19/17 20:44 96 High Flow Nasal Cannula 25.00 50 03/19/17 20:00 99.2 78 17 127/66 (86) 97 03/19/17 20:00 96 Blow By 40 03/19/17 18:50 96 Blow By 40 03/19/17 16:00 73 03/19/17 16:00 96.7 73 14 116/60 (78) 98 03/19/17 12:00 97.8 67 14 98/55 (69) 96 03/19/17 12:00 67 03/19/17 08:42 93 High Flow Nasal Cannula 25.00 50 03/19/17 08:00 57 03/19/17 08:00 97 Blow By 50 03/19/17 08:00 98.6 57 16 132/68 (89) 97 03/19/17 06:00 93 Blow By 25 03/19/17 04:00 93 Blow By 25 03/19/17 04:00 99.0 58 17 98/55 (69) 90 03/19/17 02:00 93 Blow By 25 03/19/17 00:00 93 Blow By 25 03/19/17 00:00 99.8 74 17 116/69 (85) 88 03/18/17 23:00 74 03/18/17 22:01 17 03/18/17 22:00 93 Blow By 25 03/18/17 21:50 96 High Flow Nasal Cannula 20.00 50 03/18/17 21:00 80 132/67 03/18/17 20:00 93 Blow By 25 03/18/17 20:00 99.0 86 20 128/70 (89) 93 03/18/17 19:00 93 Blow By 25 03/18/17 17:00 96 Blow By 25 03/18/17 17:00 77 119/60 03/18/17 16:00 100.2 78 14 141/70 (93) 95 03/18/17 16:00 78 03/18/17 15:00 94 Blow By 30 03/18/17 14:55 14 03/18/17 13:40 78 119/60 03/18/17 12:00 99.1 113 16 95/65 (75) 93 03/18/17 11:58 93 High Flow Nasal Cannula 30.00 50 03/18/17 10:15 112 102/60 (Dada Roland) Physical Examination The patient is awake, alert and oriented. The chest tube is to water seal. Lungs are clear bilaterally. The right lateral chest wall is tender to palpation. The lumbar spine is nontender to palpation. Speech is clear and appropriate. Sensation to light touch is intact to all extremities. Muscle strength is strong to all extremities. (Dada Roland) Lab, Micro, Other Results Recent Impressions Chest X-Ray 03/20/17599 Signed Impressions: Service Date/Time: March 05:01 - CONCLUSION: Improving aeration Eugenio Gaines MD Chest X-Ray 03/19/17599 Signed Impressions: Service Date/Time: Sunday, March 19, 2017 04:02 - CONCLUSION: No significant change Eugenio Gaines MD Laboratory Tests Test 03/19/17 04:24 03/20/17 04:08 03/21/17 04:39 White Blood Count 8.1 TH/MM3 6.9 TH/MM3 6.0 TH/MM3 Red Blood Count 3.64 MIL/MM3 3.75 MIL/MM3 3.89 MIL/MM3 Hemoglobin 9.9 GM/DL 10.1 GM/DL 10.6 GM/DL Hematocrit 30.4 % 31.6 % 32.7 % Mean Corpuscular Volume 83.4 FL 84.2 FL 83.9 FL Mean Corpuscular Hemoglobin 27.1 PG 27.0 PG 27.2 PG Mean Corpuscular Hemoglobin Concent 32.5 % 32.1 % 32.4 % Red Cell Distribution Width 14.5 % 14.6 % 14.4 % Platelet Count 185 TH/MM3 214 TH/MM3 250 TH/MM3 Mean Platelet Volume 7.9 FL 7.8 FL 7.6 FL Neutrophils (%) (Auto) 72.2 % 69.8 % 64.3 % Lymphocytes (%) (Auto) 12.5 % 12.9 % 15.6 % Monocytes (%) (Auto) 9.8 % 9.3 % 10.0 % Eosinophils (%) (Auto) 4.9 % 7.3 % 9.4 % Basophils (%) (Auto) 0.6 % 0.7 % 0.7 % Neutrophils # (Auto) 5.8 TH/MM3 4.8 TH/MM3 3.9 TH/MM3 Lymphocytes # (Auto) 1.0 TH/MM3 0.9 TH/MM3 0.9 TH/MM3 Monocytes # (Auto) 0.8 TH/MM3 0.6 TH/MM3 0.6 TH/MM3 Eosinophils # (Auto) 0.4 TH/MM3 0.5 TH/MM3 0.6 TH/MM3 Basophils # (Auto) 0.0 TH/MM3 0.0 TH/MM3 0.0 TH/MM3 CBC Comment DIFF FINAL DIFF FINAL DIFF FINAL Differential Comment Blood Urea Nitrogen 24 MG/DL 22 MG/DL 21 MG/DL Creatinine 0.99 MG/DL 0.99 MG/DL 1.00 MG/DL Random Glucose 131 MG/DL 114 MG/DL 98 MG/DL Total Protein 5.4 GM/DL 5.7 GM/DL 5.6 GM/DL Albumin 2.2 GM/DL 2.3 GM/DL 2.3 GM/DL Calcium Level 8.5 MG/DL 8.3 MG/DL 8.6 MG/DL Alkaline Phosphatase 60 U/L 99 U/L 71 U/L Aspartate Amino Transf (AST/SGOT) 19 U/L 28 U/L 62 U/L Alanine Aminotransferase (ALT/SGPT) 30 U/L 35 U/L 63 U/L Total Bilirubin 0.5 MG/DL 0.4 MG/DL 0.4 MG/DL Sodium Level 129 MEQ/L 130 MEQ/L 136 MEQ/L Potassium Level 3.6 MEQ/L 3.9 MEQ/L 3.9 MEQ/L Chloride Level 94 MEQ/L 96 MEQ/L 100 MEQ/L Carbon Dioxide Level 27.2 MEQ/L 26.2 MEQ/L 27.2 MEQ/L Anion Gap 8 MEQ/L 8 MEQ/L 9 MEQ/L Estimat Glomerular Filtration Rate 75 ML/MIN 75 ML/MIN 74 ML/MIN (Dada Roland) Medical Decision Making Impression and Plan Impression: 1. 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 2. Left L2-L3, right L4 transverse process fractures Plan: Stable for transfer to regular floor from neurosurgery standpoint. No neurosurgical intervention indicated. Mobilize out of bed without TLSO brace. Will sign off at this time. There is no need for follow up with Neurosurgery. (Dada Roland) Attending Statement I have personally seen and examined the patient on the date of this note. Pertinent documentation and study results have been reviewed by the undersigned. I have personally developed the treatment plan and performed medical decision making. Agree with findings, exam, and treatment plan as noted above. On my examination today, the patient is sitting up in a chair, awake and alert. He has no significant tenderness over the thoracic or lumbar midline or paraspinous musculature. Respirations are clear to auscultation Cardiac regular without murmur Good strength and sensation in all extremities. Stable lumbar transverse process fractures. He may continue to mobilize without a brace. Signs and symptoms to watch for discussed with the patient He is stable for discharge from neurosurgical standpoint. No neurosurgery follow-up needed at this time. (Eddie Guillory MD) Dada Roland Mar 21, 2017 09:23 Eddie Guillory MD Mar 21, 2017 18:52
[2017-03-21] MEDS: ENOXAPARIN SODIUM 30 MG/0.3 ML SYRINGE SQ SCH (12:19)
[2017-03-21] MEDS: KETOROLAC TROMETHAMINE 30 MG/ML (IVP) VIAL IV PUSH SCH ×2 (12:19→17:50)
--- NOTE | 2017-03-21 14:06 | HHI.CCPN ---
Subjective Brief History 71 y.o male fell from a ladder as he was cutting trees-level 2 trauma ,CT scans ordered by the ER.Called by the ER for right ptx-at time of my exam,GCS 15- neuro intact,moving all 4 extremities,left forehead wound with active bleeding, HD normal-no blood thinners-c/o right thoracic pain. Serial rib fractures and right hemopneumothorax, right tube thoracostomy Patient with known COPD and extensive smoking history previously Final injuries Lacerations of the left eyebrow Right sided rib fractures with hemopneumothorax post chest tube placement Very tiny possible liver laceration L2 L3 L4 transverse process laceration as a testimony to the severity of trauma and the force applied sufficient to break of the transverse processes 24 Hour Review/Hospital Course 03/15 CT head-negative in AM gcs 15 CXR stable -no PTX pain well controlled high flow 02-FIO2 40% hgb stable 03/16 GCS 15, pain is well-controlled, FiO2 down to 50% on high flow oxygen ,lungs clear chest x-ray improved, hgb stable 03/17/17 Patient is awake alert and oriented Remains on high flow oxygen in face of COPD pulmonary contusions and poor oxygen exchange Bilateral good breath sounds with relatively reasonable pulmonary expansion Some degree of abdominal distention based on narcotics and constipation as well as splinting due to the chest/rib injuries Chest tube drainage serosanguineous about 200 cc over 24 hours 03/18/17 Patient is awake alert and oriented however starting to get little confused this afternoon Bilateral good breath sounds and actual good pulmonary excursion Chest tube drainage but 350 cc over 24 hours which is serosanguineous Patient spent most of the in chair and is taking good breaths and cooperating with care Patient developed atrial fibrillation with the RVR and was placed on Cardizem drip which is controlling the ray but patient remains in A. fib for the time being Will switch to by mouth medications once a controlled rate rate Abdomen is soft with active bowel sounds Patient can be transferred to floor at this point but I believe he will need some sort of the neuropsychologic intervention in form of some sedation possibly Seroquel 03/19 Stable during rounds still on high flow oxygen FiO2 50% Had episodes of hallucination overnight-thinks could have been dilaudid He converted spontaneously to sinus rhythm Pain is controlled and IS is about 12 03/20 FiO2 down to 40% Continues to be a sinus rhythm I S improving, chest x-rays improving Lungs clear CT on waterseal 03/21/17 Patient doing much better today Is awake alert and oriented felt washing machine tender over the right and left chest due to rib fractures but certainly with good inspiratory effort Auction exchange much improved with good PO2 FiO2 gradient and patient is off high flow oxygen and on nasal cannula Bilateral good breath sounds Patient can safely transitioned to floor at this time Hemodynamically he is stable and in sinus rhythm on Cardizem Objective Vital Signs Date Time Temp Pulse Resp B/P (MAP) Pulse Ox O2 Delivery O2 Flow Rate FiO2 03/21/17 12:00 97.2 82 21 108/57 (74) 94 03/21/17 12:00 Nasal Cannula 2.00 Humidified 03/20/17 12:00 35 Intake and Output 03/21/17 03/21/17 03/22/17 08:00 16:00 00:00 Intake Total 680 ml Output Total 1500 ml Balance -820 ml Result Diagram: 03/21/17 0439 03/21/17 043 Imaging Last 24 hours Impressions Chest X-Ray 03/21/17 06 Signed Impressions: Service Date/Time: Tuesday, March 21, 2017 01:53 - CONCLUSION: 1. Right chest tube with small right apical pneumothorax, unchanged. Multiple right rib fractures. Basilar atelectasis. Darrius Fraire MD Exam [employer] Is awake alert and oriented Hemodynamic/Cardiac Patient doing very well in sinus rhythm on by mouth Cardizem normal hemodynamic values Pulmonary/Respiratory felt washing machine tender over the right and left chest due to rib fractures but certainly with good inspiratory effort Oxygen exchange much improved with good PO2 FiO2 gradient and patient is off high flow oxygen and on nasal cannula Bilateral good breath sounds Patient can safely transitioned to floor at this time Hemodynamically he is stable and in sinus rhythm on Cardizem Abdomen/GI Nutrition Abdomen is soft enteral feedings are tolerated Assessment and Plan Plan Overall stable-continues to improve clinically Continue high flow oxygen-wean to nasal cannula last DVT prophylaxis Out of bed, physical therapy CT to water seal Diet-regular oral cardizem Attestation Transfer patient to floor or rehabilitation at this time Aggressive physical therapy Critical care time 38 minutes Evelin Avalos MD Mar 21, 2017 14:06
[2017-03-21] MEDS: MAGNESIUM HYDROXIDE SUSP 30 ML CUP PO SCH (21:35)
[2017-03-21] MEDS: QUEtiapine FUMARATE 25 MG TAB PO SCH (21:36)
[2017-03-22] VITALS: BP 122/67; PULSE 69; RESP 20; TEMP 97.7; O2SAT 94
[2017-03-22] MEDS: KETOROLAC TROMETHAMINE 30 MG/ML (IVP) VIAL IV PUSH SCH ×2 (00:33→06:05)
[2017-03-22] MEDS: ENOXAPARIN SODIUM 30 MG/0.3 ML SYRINGE SQ SCH ×2 (00:33→12:38)
[2017-03-22 04:00] VITALS: BP 129/69; PULSE 77; RESP 18; TEMP 98.1; O2SAT 95
[2017-03-22] MEDS: CHLORHEXIDINE GLUCONATE 2 % 1 PACK (2 CLOTHS) TOP SCH (04:00)
[2017-03-22] MEDS: oxyCODONE/ACETAMINOPHEN 10 MG/325 MG TAB PO PRN ×2 (04:12→12:41)
[2017-03-22] MEDS: CYCLOBENZAPRINE HCL 10 MG TAB PO SCH ×3 (06:05→21:43)
--- NOTE | 2017-03-22 06:23 | RADRPT ---
EXAM DATE/TIME: 03/22/2017 05:06 [facility] COMPARISON: CHEST SINGLE AP, March 21, 2017, 1:53. INDICATIONS : Evaluate for pnuemothorax MEDICAL HISTORY : Carcinoma, basal cell. Cardiovascular disease. Hypertension. SURGICAL HISTORY : None. ENCOUNTER: Subsequent ACUITY: 1 week PAIN SCORE: 6/10 LOCATION: Bilateral chest FINDINGS: There is a right chest tube. There does appear to be a small pneumothorax at the inferior lateral rig ht chest. There is increased density in the medial right base in the infrahilar region. The left lung is clear. The heart size is normal. CONCLUSION: Right chest tube with a suspected small subpleural pneumothorax. Eugenio Hauser MD on March 22, 2017 at 6:20 Board Certified Radiologist. This report was verified electronically.
[2017-03-22 08:03] VITALS: BP 110/58; PULSE 76; RESP 20; TEMP 97.6; O2SAT 92
[2017-03-22] MEDS: DILTIAZEM-CD 240 MG CAP ER PO SCH (09:00)
[2017-03-22] MEDS: SODIUM CHLORIDE 1 GRAM TAB PO SCH ×2 (09:22→21:45)
[2017-03-22] MEDS: DOCUSATE SODIUM 50 MG/SENNA 8.6 MG TAB PO SCH ×2 (09:22→21:00)
[2017-03-22] MEDS: LOSARTAN 50 MG TAB PO SCH (09:22)
[2017-03-22] MEDS: PANTOPRAZOLE SOD 40 MG DELAYED RELEASE TAB PO SCH (09:22)
[2017-03-22] MEDS: metFORMIN HCL 500 MG TAB PO SCH ×2 (09:22→16:14)
[2017-03-22] MEDS: LACTULOSE SYRUP 20 GM/30 ML CUP PO SCH (09:22)
[2017-03-22] MEDS: LIDOCAINE HCL 5% PATCH T-DERMAL SCH (09:23)
--- NOTE | 2017-03-22 11:32 | HHI.PR ---
Subjective Subjective Notes Slept well Pain controlled CT output 425 mL in 24 hours Objective Vitals/I&O Vital Signs Date Time Temp Pulse Resp B/P (MAP) Pulse Ox O2 Delivery O2 Flow Rate FiO2 03/22/17 08:03 97.6 76 20 110/58 (75) 92 03/21/17 21:00 Nasal Cannula 2.00 03/20/17 12:00 35 Labs Laboratory Tests Test 03/14/17 13:15 03/14/17 16:00 03/16/17 05:45 03/18/17 00:54 Bedside Hemoglobin 14.3 G/DL Bedside Hematocrit 42.0 % Prothrombin Time 11.0 SEC Prothromb Time International Ratio 1.0 RATIO Activated Partial Thromboplast Time 21.2 SEC Bedside Sodium 142 MMOL/L Bedside Potassium 3.7 MMOL/L Bedside Chloride 106 MMOL/L Bedside Blood Urea Nitrogen 14 MG/DL Bedside Creatinine 1.3 MG/DL Bedside Glucose 133 MG/DL Nasal Screen MRSA (PCR) MRSA NOT DETECTED Blood Gas Puncture Site RT RADIAL Blood Gas Patient Temperature 98.6 Blood Gas HCO3 26 mmol/L Blood Gas Base Excess 1.6 mmol/L Blood Gas Oxygen Saturation 94 % Arterial Blood pH 7.42 Arterial Blood Partial Pressure CO2 40 mmHg Arterial Blood Partial Pressure O2 77 mmHg Arterial Blood Oxygen Content 15.6 Vol % Arterial Blood Carboxyhemoglobin 1.4 % Arterial Blood Methemoglobin 0.8 % Blood Gas Hemoglobin 11.9 G/DL Oxygen Delivery Device HFNC Blood Gas Liter Flow 30 L/M Blood Gas Inspired Oxygen 50 % Blood Urea Nitrogen 25 MG/DL Creatinine 0.97 MG/DL Random Glucose 128 MG/DL Total Protein 6.2 GM/DL Albumin 2.5 GM/DL Calcium Level 8.5 MG/DL Phosphorus Level 3.3 MG/DL Magnesium Level 2.3 MG/DL Alkaline Phosphatase 72 U/L Aspartate Amino Transf (AST/SGOT) 35 U/L Alanine Aminotransferase (ALT/SGPT) 40 U/L Total Bilirubin 0.7 MG/DL Sodium Level 129 MEQ/L Potassium Level 4.1 MEQ/L Chloride Level 96 MEQ/L Carbon Dioxide Level 24.1 MEQ/L Test 03/21/17 04:39 White Blood Count 6.0 TH/MM3 Red Blood Count 3.89 MIL/MM3 Hemoglobin 10.6 GM/DL Hematocrit 32.7 % Mean Corpuscular Volume 83.9 FL Mean Corpuscular Hemoglobin 27.2 PG Mean Corpuscular Hemoglobin Concent 32.4 % Red Cell Distribution Width 14.4 % Platelet Count 250 TH/MM3 Mean Platelet Volume 7.6 FL Neutrophils (%) (Auto) 64.3 % Lymphocytes (%) (Auto) 15.6 % Monocytes (%) (Auto) 10.0 % Eosinophils (%) (Auto) 9.4 % Basophils (%) (Auto) 0.7 % Neutrophils # (Auto) 3.9 TH/MM3 Lymphocytes # (Auto) 0.9 TH/MM3 Monocytes # (Auto) 0.6 TH/MM3 Eosinophils # (Auto) 0.6 TH/MM3 Basophils # (Auto) 0.0 TH/MM3 CBC Comment DIFF FINAL Differential Comment Blood Urea Nitrogen 21 MG/DL Creatinine 1.00 MG/DL Random Glucose 98 MG/DL Total Protein 5.6 GM/DL Albumin 2.3 GM/DL Calcium Level 8.6 MG/DL Alkaline Phosphatase 71 U/L Aspartate Amino Transf (AST/SGOT) 62 U/L Alanine Aminotransferase (ALT/SGPT) 63 U/L Total Bilirubin 0.4 MG/DL Sodium Level 136 MEQ/L Potassium Level 3.9 MEQ/L Chloride Level 100 MEQ/L Carbon Dioxide Level 27.2 MEQ/L Anion Gap 9 MEQ/L Estimat Glomerular Filtration Rate 74 ML/MIN Radiology Last Impressions Chest X-Ray 03/22/17 0600 Signed Impressions: Service Date/Time: Wednesday, March 22, 2017 05:06 - CONCLUSION: Right chest tube with a suspected small subpleural pneumothorax. Eugenio Hauser MD Head CT 03/15/17 1200 Signed Impressions: Service Date/Time: Wednesday, March 15, 2017 12:16 - CONCLUSION: 1. No acute intracranial abnormality identified. Jey Silver MD Thoracic Spine CT 03/14/17 1313 Signed Impressions: Service Date/Time: Tuesday, March 14, 2017 13:30 - CONCLUSION: 1. No evidence for thoracic spine fracture or subluxation. 2. Redemonstration of multiple right sided and left 11th posterior rib fractures. 3. Left-sided L2 and L3 transverse process fractures. 4. Small right hemothorax, large pneumothorax, and bilateral posterior pulmonary contusions. Bj Briscoe MD Pelvis X-Ray 03/14/171312 Signed Impressions: Service Date/Time: Tuesday, March 14, 2017 13:05 - CONCLUSION: No acute bony injury Eugenio Gaines MD Maxillofacial CT 03/14/171312 Signed Impressions: Service Date/Time: Tuesday, March 14, 2017 13:23 - CONCLUSION: 1. Moderate sized left frontal periorbital scalp hematoma with small linear calcified density projecting along the lateral superior orbital rim which may reflect a small fracture fragment or possibly a small foreign body. 2. Otherwise, no evidence for facial bone fractures. 3. Mild mucosal disease involving the ethmoid and maxillary sinuses. Bj Briscoe MD Lumbar Spine CT 03/14/171312 Signed Impressions: Service Date/Time: Tuesday, March 14, 2017 13:30 - CONCLUSION: 1. Left L2 and L3 and right L4 transverse process fractures. 2. Otherwise, no significant lumbar vertebral fracture or subluxation. 3. Degenerative spondylosis of the lower lumbar spine. Bj Briscoe MD Chest CT 03/14/171312 Signed Impressions: Service Date/Time: Tuesday, March 14, 2017 13:30 - CONCLUSION: 1. Large right-sided pneumothorax. 2. Consolidated changes throughout the right lung likely combination of contusion and atelectasis. 3. Multiple right-sided rib fractures. 4. Right adrenal hemorrhage. 5. Tiny right hemothorax. Orlando Kemp MD Cervical Spine CT 03/14/171312 Signed Impressions: Service Date/Time: Tuesday, March 14, 2017 13:23 - CONCLUSION: 1. Partially imaged right apical pneumothorax. 2. No acute cervical fracture or subluxation. 3. Multilevel degenerative spondylosis of the lower cervical spine with prominent multilevel facet arthropathy. Bj Briscoe MD Abdomen/Pelvis CT 03/14/171312 Signed Impressions: Service Date/Time: Tuesday, March 14, 2017 13:30 - CONCLUSION: 1. Right adrenal hemorrhage and some minimal adjacent hemorrhage along the undersurface of the liver. No extravasation. 2. Multiple right-sided rib fractures and pneumothorax. 3. Fractures of multiple right-sided ribs and left 12th rib. 4. Fractures of the left L2 and L3 transverse processes and L4 transverse process on the right. Orlando Kemp MD Narrative Exam GENERAL: 71 year old well-nourished, well developed male OOB in chair. SKIN: Warm and dry. LEFT eyebrow sutures noted. HEAD: Normocephalic. EYES: PERRL. ENT: No nasal bleeding or discharge. Mucous membranes pink and moist. NECK: Trachea midline. No JVD. CARDIOVASCULAR: Regular rate and rhythm. RESPIRATORY: No accessory muscle use. Lungs clear and diminished to auscultation. RIGHT lateral CT in place secured to pleura-vac system with serosanguineous drainage noted. No air leak. GASTROINTESTINAL: Abdomen soft, non-tender, nondistended. + BS. MUSCULOSKELETAL: Extremities without cyanosis, or edema. No obvious deformities. NEUROLOGICAL: Awake and alert. Normal speech. A/P Assessment and Plan [place]: Fell approximately 8 feet off a ladder when the branch he was cutting knocked his ladder out from underneath him. No LOC. Transferred from [facility] for Trauma services. INJURIES: LEFT eyebrow laceration ? LEFT orbital rim fx Small bifrontal parafalcine SDH LEFT rib fx (12) RIGHT rib fx (multiple) RIGHT PTX / NEO RIGHT lung contusion L2, L3, L4 transverse process fxs RIGHT adrenal hemorrhage PMHx: HTN, DM 03/14: RIGHT CT placement Diet: Regular Pulm: Is, acapella. Afrin PRN Pain: Percocet. Flexeril. Lidoderm patch. Activity: OOB. PT ordered GI: Protonix Bowel: Rose-colace BID. MOM. Lactulose. LBM: 03/22 DVT: SCD's. Lovenox 30 BID LEFT eyebrow laceration Sutures to be removed today Cleanse daily with soap and water. Leave open to air ? LEFT orbital rim fx OMFS consulted Non-operative management Small bifrontal parafalcine SDH, L2, L3, L4 transverse process fxs Neurosurgery consulted and have signed off Supportive care Neuro checks 03/15: Repeat CT Brain- negative for intracranial abnormalities Pain control OOB- PT ordered Post-concussive education LEFT rib fx, RIGHT rib fxs, RIGHT PTX / NEO, RIGHT lung contusion 03/14: RIGHT CT placement Supportive care Pulmonary toileting OOB-PT ordered Pain control CXR today shows small RIGHT subpleural PTX and atelectasis Daily chest tube dressing changes CT to water seal CT drainage 400mL Plan to DC CT when drainage less RIGHT adrenal hemorrhage Supportive care Plan of care discussed with patient at bedside. Case management consulted to assist with discharge plan. Dispo plan is home with [facility] when CT can be removed in 1-2 days. Mimi Lauren Mar 22, 2017 11:32
[2017-03-22 12:20] VITALS: BP 126/65; PULSE 85; RESP 20; TEMP 97.9; O2SAT 95
[2017-03-22 15:51] VITALS: BP 127/60; PULSE 101; RESP 20; TEMP 97.8; O2SAT 93
[2017-03-22] MEDS: oxyCODONE/ACETAMINOPHEN 5 MG/325 MG TAB PO PRN ×2 (16:15→21:45)
[2017-03-22 20:29] VITALS: BP_SYST 117; BP_SYST 125; BP_DIAS 63; BP_DIAS 71; PULSE 100; PULSE 89; RESP 20; TEMP 97.6; O2SAT 93
[2017-03-22] MEDS: MAGNESIUM HYDROXIDE SUSP 30 ML CUP PO SCH (21:00)
[2017-03-22] MEDS: QUEtiapine FUMARATE 25 MG TAB PO SCH (21:43)
[2017-03-23] VITALS (7 sets, daily range): BP systolic 108–131; BP diastolic 57–76; PULSE 75–85; RESP 16–20; TEMP 97.3–98.9; O2SAT 88–98
[2017-03-23] MEDS: oxyCODONE/ACETAMINOPHEN 5 MG/325 MG TAB PO PRN ×2 (02:03→08:48)
[2017-03-23] MEDS: CYCLOBENZAPRINE HCL 10 MG TAB PO SCH ×2 (05:01→12:33)
[2017-03-23] MEDS: LOSARTAN 50 MG TAB PO SCH (08:46)
[2017-03-23] MEDS: SODIUM CHLORIDE 1 GRAM TAB PO SCH (08:47)
[2017-03-23] MEDS: LACTULOSE SYRUP 20 GM/30 ML CUP PO SCH (08:47)
[2017-03-23] MEDS: DOCUSATE SODIUM 50 MG/SENNA 8.6 MG TAB PO SCH ×2 (08:47→08:53)
[2017-03-23] MEDS: PANTOPRAZOLE SOD 40 MG DELAYED RELEASE TAB PO SCH (08:47)
[2017-03-23] MEDS: metFORMIN HCL 500 MG TAB PO SCH ×2 (08:47→16:53)
[2017-03-23] MEDS: DILTIAZEM-CD 240 MG CAP ER PO SCH (08:47)
[2017-03-23] MEDS: LIDOCAINE HCL 5% PATCH T-DERMAL SCH ×2 (08:50→08:54)
[2017-03-23] MEDS ORDERED: CYCL1TAB29 PO (12:07)
[2017-03-23] MEDS ORDERED: OXYC1TAB63 PO (12:07)
--- NOTE | 2017-03-23 12:08 | HHI.FF ---
Face to Face Verification Diagnosis: (1) Left rib fracture (2) Right rib fracture (3) Hemothorax on left (4) L4 vertebral fracture (5) L2 vertebral fracture (6) L3 vertebral fracture (7) SDH (subdural hematoma) (8) Pneumothorax Physical Therapy Order: Evaluate and Treat, Improve ambulation, Strength and gait training Home Health Nursing Order: Nursing assessment with vital signs I have seen patient Garo Virgen on 03/23/17. My clinical findings support the need for the requested home health care services because: Limited ability to care for self High risk of falls I certify that my clinical findings support that this patient is homebound because: Unsteady gait/balance Mimi Lauren Mar 23, 2017 12:08
--- NOTE | 2017-03-23 12:23 | HHI.DS ---
Discharge Summary Admission Date Mar 14, 2017 at 14:33 Discharge Date: Mar 23, 2017 Admitting Diagnosis right pneumothorax, L2,3,4 transverse process fractures, small ich (1) Fracture of transverse process of lumbar vertebra ICD Codes: S32.009A - Unspecified fracture of unspecified lumbar vertebra, initial encounter for closed fracture (2) Pneumothorax ICD Codes: J93.9 - Pneumothorax, unspecified (3) SDH (subdural hematoma) ICD Codes: I62.00 - Nontraumatic subdural hemorrhage, unspecified (4) Hemothorax on left ICD Codes: J94.2 - Hemothorax (5) Left rib fracture ICD Codes: S22.32XA - Fracture of one rib, left side, initial encounter for closed fracture (6) Right rib fracture ICD Codes: S22.31XA - Fracture of one rib, right side, initial encounter for closed fracture Brief History S/P Trauma: Fall CBC/BMP: 03/21/17 0439 03/21/17 0439 Significant Findings Laboratory Tests Test 03/21/17 04:39 Red Blood Count 3.89 MIL/MM3 (4.50-5.90) Hemoglobin 10.6 GM/DL (13.0-17.0) Hematocrit 32.7 % (39.0-51.0) Monocytes (%) (Auto) 10.0 % (0.0-8.0) Eosinophils (%) (Auto) 9.4 % (0.0-4.0) Lymphocytes # (Auto) 0.9 TH/MM3 (1.0-4.8) Eosinophils # (Auto) 0.6 TH/MM3 (0-0.4) Blood Urea Nitrogen 21 MG/DL (7-18) Total Protein 5.6 GM/DL (6.4-8.2) Albumin 2.3 GM/DL (3.4-5.0) Aspartate Amino Transf (AST/SGOT) 62 U/L (15-37) Estimat Glomerular Filtration Rate 74 ML/MIN (>89) Imaging Last Impressions Chest X-Ray 03/23/17 1500 Signed Impressions: Service Date/Time: Thursday, March 23, 2017 14:25 - CONCLUSION: 1. There is no evidence of pneumothorax. Gautam Cochran MD Head CT 03/15/17 1200 Signed Impressions: Service Date/Time: Wednesday, March 15, 2017 12:16 - CONCLUSION: 1. No acute intracranial abnormality identified. Jey Silver MD Thoracic Spine CT 03/14/171312 Signed Impressions: Service Date/Time: Tuesday, March 14, 2017 13:30 - CONCLUSION: 1. No evidence for thoracic spine fracture or subluxation. 2. Redemonstration of multiple right sided and left 11th posterior rib fractures. 3. Left-sided L2 and L3 transverse process fractures. 4. Small right hemothorax, large pneumothorax, and bilateral posterior pulmonary contusions. Bj Briscoe MD Pelvis X-Ray 03/14/171312 Signed Impressions: Service Date/Time: Tuesday, March 14, 2017 13:05 - CONCLUSION: No acute bony injury Eugenio Gaines MD Maxillofacial CT 03/14/171312 Signed Impressions: Service Date/Time: Tuesday, March 14, 2017 13:23 - CONCLUSION: 1. Moderate sized left frontal periorbital scalp hematoma with small linear calcified density projecting along the lateral superior orbital rim which may reflect a small fracture fragment or possibly a small foreign body. 2. Otherwise, no evidence for facial bone fractures. 3. Mild mucosal disease involving the ethmoid and maxillary sinuses. Bj Briscoe MD Lumbar Spine CT 03/14/171312 Signed Impressions: Service Date/Time: Tuesday, March 14, 2017 13:30 - CONCLUSION: 1. Left L2 and L3 and right L4 transverse process fractures. 2. Otherwise, no significant lumbar vertebral fracture or subluxation. 3. Degenerative spondylosis of the lower lumbar spine. Bj Briscoe MD Chest CT 03/14/171312 Signed Impressions: Service Date/Time: Tuesday, March 14, 2017 13:30 - CONCLUSION: 1. Large right-sided pneumothorax. 2. Consolidated changes throughout the right lung likely combination of contusion and atelectasis. 3. Multiple right-sided rib fractures. 4. Right adrenal hemorrhage. 5. Tiny right hemothorax. Orlando Kemp MD Cervical Spine CT 03/14/171312 Signed Impressions: Service Date/Time: Tuesday, March 14, 2017 13:23 - CONCLUSION: 1. Partially imaged right apical pneumothorax. 2. No acute cervical fracture or subluxation. 3. Multilevel degenerative spondylosis of the lower cervical spine with prominent multilevel facet arthropathy. Bj Briscoe MD Abdomen/Pelvis CT 03/14/17 1313 Signed Impressions: Service Date/Time: Tuesday, March 14, 2017 13:30 - CONCLUSION: 1. Right adrenal hemorrhage and some minimal adjacent hemorrhage along the undersurface of the liver. No extravasation. 2. Multiple right-sided rib fractures and pneumothorax. 3. Fractures of multiple right-sided ribs and left 12th rib. 4. Fractures of the left L2 and L3 transverse processes and L4 transverse process on the right. Orlando Kemp MD PE at Discharge GENERAL: 71 year old well-nourished, well developed male OOB in chair. SKIN: Warm and dry. LEFT eyebrow sutures noted. HEAD: Normocephalic. EYES: PERRL. ENT: No nasal bleeding or discharge. Mucous membranes pink and moist. NECK: Trachea midline. No JVD. CARDIOVASCULAR: Regular rate and rhythm. RESPIRATORY: No accessory muscle use. Lungs clear and diminished to auscultation. RIGHT lateral CT in place secured to pleura-vac system with serosanguineous drainage noted. No air leak. GASTROINTESTINAL: Abdomen soft, non-tender, nondistended. + BS. MUSCULOSKELETAL: Extremities without cyanosis, or edema. No obvious deformities. NEUROLOGICAL: Awake and alert. Normal speech. Hospital Course [place]: Fell approximately 8 feet off a ladder when the branch he was cutting knocked his ladder out from underneath him. No LOC. Transferred from [facility] for Trauma services. INJURIES: LEFT eyebrow laceration ? LEFT orbital rim fx Small bifrontal parafalcine SDH LEFT rib fx (12) RIGHT rib fx (multiple) RIGHT PTX / NEO RIGHT lung contusion L2, L3, L4 transverse process fxs RIGHT adrenal hemorrhage PMHx: HTN, DM 03/14: RIGHT CT placement Diet: Regular Pulm: Is, acapella. Afrin PRN Pain: Percocet. Flexeril. Lidoderm patch. Activity: OOB. PT ordered GI: Protonix Bowel: Rose-colace BID. MOM. Lactulose. LBM: 03/22 DVT: SCD's. Lovenox 30 BID LEFT eyebrow laceration Sutures removed Cleanse daily with soap and water. Leave open to air ? LEFT orbital rim fx OMFS consulted Non-operative management Small bifrontal parafalcine SDH, L2, L3, L4 transverse process fxs Neurosurgery consulted and have signed off Supportive care Neuro checks 03/15: Repeat CT Brain- negative for intracranial abnormalities Pain control OOB- PT ordered Post-concussive education LEFT rib fx, RIGHT rib fxs, RIGHT PTX / NEO, RIGHT lung contusion 03/14: RIGHT CT placement Supportive care Pulmonary toileting OOB-PT ordered Pain control CT drainage 122mL since yesterday- CT removed, patient tolerated well CXR post CT removal shows no PTX Keep CT dressing in place x 24 hours RIGHT adrenal hemorrhage Supportive care Hgb stable F/U with PCP in 1 week Plan of care discussed with patient at bedside. Patient is clear from Trauma surgery to safely discharge home. Pt Condition on Discharge: Stable Discharge Disposition: Disch w/ Home Health Serv Discharge Instructions DIET: Follow Instructions for: As Tolerated, No Restrictions Activities you can perform: Regular-No Restrictions Activities to Avoid: Driving for 24 hrs, Concussion Sports, Contact Sports, Strenuous Activity Mimi Lauren Mar 23, 2017 12:23
[2017-03-23] MEDS: ENOXAPARIN SODIUM 30 MG/0.3 ML SYRINGE SQ SCH ×2 (12:33)
[2017-03-23] MEDS: oxyCODONE/ACETAMINOPHEN 10 MG/325 MG TAB PO PRN ×2 (12:33→16:53)
[2017-03-23] MEDS ORDERED: CARD240C6 PO (14:28)
--- NOTE | 2017-03-23 15:43 | RADRPT ---
EXAM DATE/TIME: 03/23/2017 14:25 [facility] COMPARISON: CHEST SINGLE AP, March 22, 2017, 5:06. INDICATIONS : Post right chest tube removal MEDICAL HISTORY : Carcinoma, basal cell. Cardiovascular disease. Hypertension SURGICAL HISTORY : None. ENCOUNTER: Subsequent ACUITY: 1 week PAIN SCORE: 0/10 LOCATION: Right Chest FINDINGS: The cardiac silhouette is enlarged in transverse diameter. There is no evidence of pneumothorax. The chest tube is removed. There is subsegmental atelectasis in the left base. CONCLUSION: 1. There is no evidence of pneumothorax. Gautam Cochran MD on March 23, 2017 at 15:40 Board Certified Radiologist. This report was verified electronically.
== END 2017-03-23 18:10 | disposition home health service (06) | DRG 964 ==
LOC: NEPI 13:10 → N03B 14:33 → N05B 03-21 14:33
PROVIDERS: ADMIT Surgery Trauma Surgery; ATTEND Surgery Trauma Surgery
PROC: 0W9930Z Drainage of Right Pleural Cavity with Drainage Device, Percutaneous Approach (ICD-10-PCS; principal; 2017-03-14)
PROC: 0HQ1XZZ Repair Face Skin, External Approach (ICD-10-PCS; 2017-03-14)
DX: S06.5X0A Traumatic subdural hemorrhage without loss of consciousness, initial encounter (principal); S32.029A Unspecified fracture of second lumbar vertebra, initial encounter for closed fracture; S36.114A Minor laceration of liver, initial encounter; S27.2XXA Traumatic hemopneumothorax, initial encounter; S32.039A Unspecified fracture of third lumbar vertebra, initial encounter for closed fracture; S22.41XA Multiple fractures of ribs, right side, initial encounter for closed fracture; S32.049A Unspecified fracture of fourth lumbar vertebra, initial encounter for closed fracture; S27.321A Contusion of lung, unilateral, initial encounter; S37.812A Contusion of adrenal gland, initial encounter; R44.3 Hallucinations, unspecified; J98.11 Atelectasis; S22.32XA Fracture of one rib, left side, initial encounter for closed fracture; J44.9 Chronic obstructive pulmonary disease, unspecified; K59.03 Drug induced constipation; T40.605A Adverse effect of unspecified narcotics, initial encounter; I48.91 Unspecified atrial fibrillation; I10 Essential (primary) hypertension; S02.80XA Fracture of other specified skull and facial bones, unspecified side, initial encounter for closed fracture; S01.81XA Laceration without foreign body of other part of head, initial encounter; M50.30 Other cervical disc degeneration, unspecified cervical region; R40.2412 Glasgow coma scale score 13-15, at arrival to emergency department; W11.XXXA Fall on and from ladder, initial encounter; Y92.9 Unspecified place or not applicable; Z87.891 Personal history of nicotine dependence
CPT/HCPCS: 12013; 32551; 36600; 70450; 70486; 71010; 71260; 72125; 72128; 72131; 72170; 74177; 80048; 80053; 82435; 82565; 82805; 82947; 82948; 83735; 84100; 84132; 84295; 84520; 85025; 85610; 85730; 86850; 86900; 86901; 86920; 86922; 87641; 94150; 94667; 94668; 96374; 96375; 99291; G0390; J0690; J1170; J1650; J1815; J1885; J2250; J3010; J7030; Q9967